=== PATIENT | female | born 1940 | race Caucasian/White ===

== ENCOUNTER 2019-05-19 15:50 | Outpatient (CLI) | payer MEDICARE, BC, SELFPAY ==
--- NOTE | ~2019-05-19 | US_ITS ---
EXAMINATION: US venous doppler LE RT DATE: 05/19/2019 16:34 INDICATION: Right lower limb pain and swelling. TECHNIQUE: Grayscale ultrasound images without and with compression and Doppler ultrasound images of the right lower extremity veins were obtained. COMPARISON: None. FINDINGS: The visualized portions of right common femoral vein, profunda (deep) femoral vein, femoral vein, pop liteal vein, peroneal veins, posterior tibial veins, and greater saphenous vein outflow are patent. IMPRESSION: 1. No deep venous thrombosis. Reviewed, dictated and finalized at location A. LRY FINISHER
== END 2019-05-19 15:51 | disposition home or self-care (01) ==
LOC: ANHIMG 15:58
PROVIDERS: PCP Internal Medicine; Visit Provider Podiatrist Foot & Ankle Surgery
DX: M79.89 Other specified soft tissue disorders (principal)
CPT/HCPCS: 93971

== ENCOUNTER 2024-01-08 07:04 | Outpatient (CLI) | payer MEDICARE, BC, SELFPAY ==
[2024-01-02 15:54] VITALS: BMI 18.1
--- NOTE | 2024-01-02 15:57 | PC.NURSE ---
Pre Radiology instructions Report to the outpatient [facility] means on date ___01/08/24__ at time ____7:00AM___ for procedure Time: ___9:00AM_ YOU MAY BE MONITORED AT HOSPITAL FOR UP TO 4 HOURS AFTER YOUR PROCEDURE. A visitor will be allowed to accompany the patient into the hospital. You and your visitor will be asked to self-screen and do not enter if you have any COVID symptoms. A mask is OPTIONAL within the hospital. Patients are to have no food or drink 6 hours prior to procedure time Driving will be restricted after the procedure, you must have a person to drive you home. Labs will be drawn in preop area and once reviewed, you will be taken to radiology area for procedure. When the procedure is completed, you will be taken to outpatient where you will be monitored for several hours. You may have one visitor in this area. Other than holding anti-coagulants, patient may take other medication(s) as scheduled. Prior to your appointment date patients are instructed to hold anti-coagulants after discussing with ordering provider to stop. If unable to discontinue anti-coagulants please notify radiologist. ? No aspirin or warfarin (Coumadin) for 7 days prior to the procedure. ? No clopidogrel (Plavix), ticagrelor (Brilinta), prasugrel (Effient) or dabigatran (Pradaxa) for 5 days prior to the procedure. ? No rivaroxaban (Xarelto), apixaban (Eliquis), dipyridamole (Aggrenox or Persantine) or cilostazol (Pletal) for 2 days prior to the procedure. Medications to discontinue per physician: ____NONE____ Date to take last dose: Please leave all valuables, including medications, at home the day of procedure. The hospital will not accept responsibility for valuables. Wear comfortable, loose fitting clothing.? Follow any additional instructions given to you from ordering provider. Telephone instructions given to ____PATIENT and asked if any additional questions and then verbalized understanding. Patient advised to call scheduling provider office or registration scheduling [phone] if any additional questions.
--- NOTE | ~2024-01-08 | XR_ITS ---
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 Informed consent was obtained from the patient. Risks and benefits including bleeding, infection and nerve root injury were discussed with the patient. The patient agreed to proceed. Time out proc edure was performed. [employer] radiograph was obtained. An entry site was chosen at the L3-L4 level. A right paracentral approach was used. Standard sterile prep was done with Betadine. Entry site was infiltrated with 3 cc 1% lidocaine. A 3.5 22G spinal needle was then inserted into the spinal canal with intrathecal position confirmed with spontaneous reflux of clear CSF. 10 mL Omnipaque 300 were then injected into the thecal sac with intermittent fluoroscopy confirming intrathecal administration . Frontal, lateral and oblique fluoroscopic images of the lumbar spine were then acquired. 2. The head of the bed was lowered and the contrast bolus was followed with intermittent fluoroscopy was advanced to the cervical spine. Additional frontal and left anterior oblique fluoroscopic images were obtained. The patient was then transferred to CT scan for spiral CT of the cervical and lumbar s pine. . Following this patient was transferred to postoperative recovery area for 2 hours of observ ation. There are no immediate complications. 3. Computed tomography (CT) myelogram of the cervical spine was performed with intrathecal but withou t intravenous contrast. Automated exposure control and iterative reconstruction technique were employ ed. The dose-length product was 145.50 mGy-cm. 4. CT myelogram of the lumbar spine was performed with intrathecal but without intravenous contrast. Automated exposure control and iterative reconstruction technique were employed. The dose-length prod uct was 169.93 mGy-cm. COMPARISON: None FINDINGS: Cervical spine: Severe osteoarthritis at the atlantoaxial articulation with prominent remodeling of the anterior markos in of the dens. 22 degree lower cervical levoscoliosis with incompletely visualized compensatory uppe r thoracic dextroscoliosis. 3 mm anterolisthesis C3 on C4 and C4 on C5 and 3 mm retrolisthesis C6 on C7. Vertebral body heights are normal. Severe disc height loss with prominent degenerative endplate c hanges at C4-C5, C5-C6, C6-C7 and C7-T1. Moderate disc height loss at C3-C4. Mild disc height loss at T2-T3 through T4-T5. Atherosclerotic calcifications at the bilateral carotid bulbs. Cervical soft ti ssues are otherwise unremarkable. Mild biapical pleural-parenchymal scarring. 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 The following disc levels are specifically discussed: C2-C3: The disc does not extend beyond the endplate margin. There is mild bilateral uncovertebral jaylin nt osteoarthritis. There is severe bilateral facet joint osteoarthritis. There is mild left and minim al right neural foraminal stenosis. There is no central canal stenosis. C3-C4: Disc is mildly bulging. There is mild to moderate right and severe left uncovertebral joint os teoarthritis. There is moderate to severe right and severe left facet joint osteoarthritis. There is mild right and moderate left neural foraminal stenosis. There is mild central canal stenosis. C4-C5: Small posterior disc osteophyte complex. There is moderate left and severe right uncovertebral joint osteoarthritis. There is moderate to severe bilateral facet joint osteoarthritis. There is mod erate bilateral neural foraminal stenosis. There is mild central canal stenosis. C5-C6: Posterior disc osteophyte complex. There is mild to moderate left and severe right uncovertebr al joint osteoarthritis. There is mild left and and mild to moderate right facet joint osteoa
[2024-01-08 07:56] VITALS: BP 171/71; PULSE 71; TEMP 37.2; O2SAT 99
[2024-01-08 07:59] LABS: Basophils Percent Auto 0.4 % (0.2-1.2); Eosinophils Absolute Auto 0.2 K/mm3 (0-0.3); Eosinophils Percent Auto 3.3 % (0-4.4); Hematocrit 34.8 % (37.0-47.0); Hemoglobin 11.7 g/dL (12.0-15.0); Immature Granulocyte Absolute 0.02 K/mm3 (0.00-0.031); Immature Granulocyte Percent A 0.3 % (0-0.5); Lymphocytes Absolute Auto 0.89 K/mm3 (0.9-3.2); Lymphocytes Percent Auto 12.7 % (18.3-44.2); Mean Corpuscular HGB Conc 33.6 g/dl (32-36); Mean Corpuscular Hemoglobin 32.3 pg (26-34); Mean Corpuscular Volume 96.1 fl (80-100); Monocytes Absolute Auto 0.6 K/mm3 (0.1-0.6); Monocytes Percent Auto 7.8 % (2.6-8.5); Neutrophils Absolute Auto 5.3 K/mm3 (1.3-6.7); Neutrophils Percent Auto 75.5 % (45.5-73.1); Platelet Count Result 164 k/mm3 (150-375); Red Blood Count 3.62 M/mm3 (4.2-5.4); Red Cell Distribution Width 12.7 % (11.5-14.5)
[2024-01-08 08:23] LABS: INR 1.1; Prothrombin Time 14.3 Seconds (11.1-14.7)
[2024-01-08 10:15] VITALS: BP 177/78; PULSE 65; RESP 20; O2SAT 98
[2024-01-08 10:30] VITALS: BP 164/80; PULSE 61; RESP 20
--- NOTE | 2024-01-08 10:32 | SUR.PHASEII ---
1020 - dr. vital called in regards to pt's request to take her home dose of tramadol for pain control. dr. vital stated that pt could take her home dose
[2024-01-08 11:00] VITALS: BP 167/88; PULSE 65; RESP 20
[2024-01-08 11:30] VITALS: BP 160/80; PULSE 63; RESP 65
[2024-01-08 12:00] VITALS: BP 165/84; PULSE 80; RESP 20
== END 2024-01-08 12:17 | disposition home or self-care (01) ==
PROVIDERS: Radiology Diagnostic Radiology; PCP Family Medicine; Referring Provider Neurological Surgery; Visit Provider Radiology Diagnostic Radiology
DX: M47.816 Spondylosis without myelopathy or radiculopathy, lumbar region (principal); S34.109A Unspecified injury to unspecified level of lumbar spinal cord, initial encounter; M41.9 Scoliosis, unspecified
CPT/HCPCS: 36415; 62302; 62304; 62305; 72126; 72132; 85025; 85049; 85610; Q9967

== ENCOUNTER 2024-05-14 01:13 | Day surgery (SDC) | payer MEDICARE, BC, SELFPAY ==
[2024-05-01 11:56] VITALS: BP 159/76; PULSE 67; RESP 16; TEMP 37; O2SAT 100; BMI 19.4
--- NOTE | 2024-05-01 12:21 | PC.NURSE ---
Report to the Outpatient Waiting Room, entrance under the green pavilion located off [facility], at time __6:00AM on date ___05/14/24____. Planned Procedure Time: ___7:30AM .? Time changes happen often and if your time is changed the preop area will call you the afternoon before. - You and your visitor will be asked to self-screen and do not enter if you have any COVID symptoms. Please call surgeon if you need to reschedule. - A mask is optional within the hospital at this time. Patients may have clear liquids (water, carbonated beverages, clear teas, apple juice) until 3 hours prior to surgery with a maximum of 20 ounces. - No food from midnight until time of surgery and no smoking. This includes no chewing gum, candy or mints. Take only the following medications with a SIP of water on the morning of surgery: AMIODARONE, LEVOTHYROXINE. TRAMADOL AND ALBUTEROL NEEDED DO NOT STOP ANY OF YOUR OTHER PRESCRIPTION MEDICATIONS PRIOR TO SURGERY EXCEPT THE FOLLOWING Medications to discontinue per physician HOLD ALL NSAIDS(IBUPROFEN, NAPROXEN & VLAD'S PILLS) AND ALL SUPPLEMENTS/VITAMINS 7 DAYS PRE-OP PER DR MCMAHON Date to take last dose 05/06/24 Please no make-up, nail luxembourgish, hairspray, perfume, deodorant, or body powder the day of surgery.? No jewelry (including any body piercings) or valuables the day of surgery, leave them at home.? Please take a shower or bath the night before, or the morning of, surgery with an antibacterial soap.? Wear comfortable, loose fitting clothing.? - Jewelry must be removed prior to entering the operating room.? Rings and piercings that are not removed may be cut off. - The hospital will not accept responsibility for valuables.? - Please leave all valuables, including medications, at home the day of surgery. If you are going home after surgery, a licensed local company intermodal truck driver must drive you home.? - NO public transportation without another adult if you receive anesthesia. - We recommend that an adult stay with you for 24 hours following discharge. - We also recommend that you do not drive, make important decision, drink alcoholic beverages, or take any drugs that were not prescribed by your health care provider for at least 24 hours after your discharge time. Follow any additional instructions given to you from your surgeon. Telephone instructions given to ____PATIENT and asked if any additional questions and then verbalized understanding. Patient advised to call surgeon office or pre surgery nurse liaison [phone] if any additional questions.
[2024-05-14] VITALS (19 sets, daily range): BP systolic 135–165; BP diastolic 57–74; PULSE 60–72; RESP 11–18; TEMP 36.4–36.7; O2SAT 96–100; BMI 18.4
--- NOTE | ~2024-05-14 | XR_ITS ---
INTRAOPERATIVE FLUOROSCOPY: CLINICAL HISTORY: 84 years old Female; RIGHT L5/S1 MIKEL LAMINECTOMY PROCEDURE COMMENTS: Limited intraoperative fluoroscopy of the lumbar spine was performed. CUMULATIVE DOSE: 0.9 mGy FLUOROSCOPY TIME: 3.6 seconds FINDINGS/IMPRESSION: Please refer to operative note for further details. Reviewed, dictated and finalized at location A. [employer]
--- OUTSIDE RECORDS SUMMARY | 2024-05-14 01:17 | XMS_ITS | Encounter Summary ---
Author Organization [facility] Address [address] [place] [address] Care Team Providers Care Vamp Creaser Name Role Phone Jerson Pino MD Unavailable [phone] Morro Kiser MD Primary Care Provider [phone] Seble Charles NP Primary Care Provider [phone] Morro Kiser MD Primary Care Provider [phone] Mary Grace Martinez RN Unavailable [phone] Humberto Harman MD Unavailable [phone] Encounter Details Date Type Department Care Team (Late st Contact Info) Description 02/21/2023 [employer] Message Enc [facility] [employer] [address] [place] [address] bCODE, [facility] Provider Patient Amendment request Social History Tobacco Use Types Packs/Day Years Used Date Smoking Tobacco: Never Smokeless Tobacco: Never Comments:na Alcohol Use Standard Drinks/Week Comments No 0 (1 standard drink = 0.6 oz pur e alcohol) OASIS D0700: Social Isolation Answer Da te Recorded Frequency of experiencing loneliness or isolatio n Never 11/09/2022 OASIS A1250: Transportation Answer Date Recorded Lack of Transportation (Medical) No 11/09/2022 Lack of Transportation (Non-Medical) No 11/09/2022 Patient Unable or Declines to Respond No 11/09/2022 OASIS B1300: Health Literacy Answer Yang e Recorded Frequency of needing help to read materials from doctor or pharmacy Never 11/09/2022 Humiliation, Afraid, Rape, and Kick questionnair e Answer Date Recorded Within the last year, have y ou been afraid of your partner or ex-partner? No 10/29/2022 Within the last year, have y ou been humiliated or emotionally abused in other ways by your partner or ex-partner? No Within the last year, have y ou been kicked, hit, slapped, or otherwise physically hurt by your partner or ex-partner? No 10/29/2022 Within the last year, have y ou been raped or forced to have any kind of sexual activity by your partner or ex-partner? No 10/29/2022 AUDIT-C Answer Date Recorded Q1: How often do you have a drink containing alcohol? Never 10/29/2022 Q2: How many drinks containi ng alcohol do you have on a typical day when you are drinking? Patient does not drink Q3: How often do you have si x or more drinks on one occasion? Never 10/29/2022 Overall Financial Resource Strain (CARDIA) Answe r Date Recorded How hard is it for you to pa y for the very basics like food, housing, medical care, and heating? Not very hard 10/29/2022 PHQ-2 Answer Date Recorded Patient Health Questionnaire-2 Score 0 08/31/2022 [facility] - Occupational Stress Questionnaire Answer Date Recorded Do you feel stress - tense, restless, nervous, or anxious, or unable to sleep at night because your mind is troubled all the time - these days? Only a little 10/29/2022 Hunger Vital Sign Answer Date Recorded Within the past 12 months, y ou worried that your food would run out before you got the money to buy more. Never true 10/30/19 Within the past 12 months, t he food you bought just didn't last and you didn't have money to get more. Never true 10/29/2022 PRAPARE - Transportation Answer Date Re corded In the past 12 months, has l ack of transportation kept you from medical appointments or from getting medications? No 10/08 In the past 12 months, has l ack of transportation kept you from meetings, work, or from getting things needed for daily living? No 10/29/2022 Housing Stability Vital Sign Answer Yang e Recorded In the last 12 months, was t here a time when you were not able to pay the mortgage or rent on time? No 10/29/2022 In the last 12 months, how many places have you lived? 1 10/29/2022 In the last 12 months, was t here a time when you did not have a steady place to sleep or slept in a fci (including now)? No 10/29/2022 Housing Stability Vital Sign Answer Yang e Recorded In the last 12 months, was t here a time when you were not able to pay the mortgage or rent on time? No 10/29/2022 Number of Times Moved in the Last Year Not on fi le 10/29/2022 Homeless in the Last Year Not on file 2022 Education Answer Date Recorded What is the highest level of school you have completed or the highest degree you have received? 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 Answer Date of Assessment Author Status No 10/29/2022 9:57 PM CDT Melquiades Leon RN Active * Do you have serious difficulty walking or climbing stairs? Answer Date of Assessment Author Status Yes 10/29/2022 9:57 PM Melquiades Delacruz RN Active * Do you have difficulty dressing or bathing? Answer Date of Assessment Author Status Yes 10/29/2022 9:57 PM Melquiades Delacruz RN Active * Because of a physical, mental, or emotional condition, do you have difficulty doing errands alone such as visiting a doctor's office or shopping? Answer Date of Assessment Author Status No 10/29/2022 9:57 PM CDT Melquiades Leon, CAMILO Active documented as of this encounter Mental Status * Because of a physical, mental, or emotional condition, do you have serious difficulty concentrating, remembering, or making decisions? Answer Entry Date Author Status No 10/29/2022 9:57 PM CDT Melquiades Leon RN Active documented in this encounter Plan of Treatment Upcoming Encounters Date Type Department Care Team (Late st Contact Info) Description 05/29/2024 10:30 AM BOX OFFICE ATTENDANT Office Visit [facility] [address] [place] [id number] Kelsea Jacobo FNP [address] [place] [address] [address] [place], [place] [address] 06/06/2024 11:15 AM BOX OFFICE ATTENDANT [facility] [address] [place] [address] Emilia Proctor PA-C [facility] [address] [place], [place] [address] 07/14/2024 2:40 PM CDT Allied [facility], [facility] [address] [place], [place] [address] Humberto Harman MD [facility]. [facility] [address] [place], [place] [id number] documented as of this encounter Goals Goal Patient Goal Type Associated Problems Recent Progress Patient-Stated? Author Health - patient able to perform ADLs independently General No Concepcion Lipscomb, SURVEILLANCE OPERATOR Family - family caregiver with be involved in care transitions and discharge planning Lifestyle No Ignacio Hernandez, RN documented as of this encounter Visit Diagnoses Not on filedocumented in this encounter Additional Health Concerns Assessment Noted Time PHQ-9 Depression Total Score: 4 04/26/19 23 9:20 AM BOX OFFICE ATTENDANT documented as of this encounter Care Teams Vamp Creaser Relationship Specialty [place] [address] [place] [address] PCP - General FAMILY PRACTICE 05/25/22 03/07/23 Seble Charles NP [address] [place] [address] PCP - General NURSE PRACTITIONER 03/08/23 03/19/23 [place] [address] [place] [address] PCP - General FAMILY PRACTICE 03/20/23 Jerson Pino MD [facility]. [address] [place], [place] [address] [place] Morale Officer CARDIOVASCULAR DISEASE 06/29/17 Mary Grace Martinez, RN [address] [place] [address] Partition Assembly Machine Operator (Ambulatory) REGISTERED NURSE 07/17/23 08/05/23 Humberto Harman MD [facility]. [address] [place], [place] [address] Consulting Physician CARDIOVASCULAR DISEASE 04/17/24 documented as of this encounter
--- OUTSIDE RECORDS SUMMARY | 2024-05-14 01:17 | XMS_ITS | Clinical Summary ---
Author Organization [facility] Address [address] [place] [address] Care Team Providers Care Life Insurance Actuary Name Role Phone AraceliSeble Sue EUGENE-OTOLARYNGOLOGY TEACHER Primary Care Provider [phone]- [phone] Source Comments [facility],non-owned Affiliates and Associated Physician Practices is amultiple site organization consisting of ambulatory clinics and hospital sitesin [place], [place], [place] and [place]. This disclosure is being madepursuant to the Care Everywhere program and may not contain all information available regarding this patient. Last updated 17.[facility] Allergies Active Allergy Reactions Criticality Noted Date Comments Adhesive Sensitivity Rash Medium 03/14/2023 Baclofen Nausea and/or Vomiting 08/12/2013 Lamotrigine Rash Medium 11/17/2013 Atorvastatin Myalgias 03/14/2023 Hydrocodone-Acetaminoph en Other 03/14/2023 Syncope Cilostazol Palpitations 03/14/2023 Propranolol Other 03/14/2023 Mouth blisters Tizanidine Other 03/14/2023 Hallucinations Medications * Be aware that medications may not be up to date on this document. Alwaysverify current medications with the patient. Medication Sig Dispensed Refills Start Date End Date Status multivitamin daily (THERAGRAN) tablet Take 1 Tab by mouth daily with food. Active Docosahexaenoic Acid (DHA COMPLETE PO) Take 1 Tab by mouth once daily. Active Cholecalciferol (VITAMIN D-3) 1000 UNITS CAPS Take 2 Caps by mouth once daily. Active vitamin C (ASCORBIC ACID) 1000 MG TABS tablet Take 1,000 mg by mouth once daily. Active cyanocobalamin (VITAMIN B-12) 1000 MCG tablet Take 1,000 mcg by mouth once daily. Active Ferrous Sulfate (IRON) 325 (65 FE) MG TABS Take 1 Tab by mouth as directed. 2 times a week Active azelastine (ASTELIN) 0.1 % nasal spray [place] 1 [place] into each nostril 2 times daily 1 Inhaler 1 04/16/2015 Active acyclovir (Zovirax) 5 % cream Apply 5 times daily for 4 days for cold sores. 11/24/2022 Active amiodarone (Cordarone) 200 MG tablet Take 1 (one) tablet by mouth 2 times daily 01/24/2023 Active amLODIPine (Norvasc) 5 MG tablet Take 1 (one) tablet by mouth once daily 02/05/2023 Active diphenhydrAMINE (Benadryl) 25 MG capsule Take 1 (one) capsule by mouth 2 times daily Active Magnesium Oxide 250 MG Take 250 mg by mouth once daily Active mirabegron ER 24hr (Myrbetriq) 25 MG tablet Take 1 (one) tablet by mouth once daily 11/24/2022 Active [place]-3 Fatty Acids (fish oil) 1000 MG capsule Take 500 mg by mouth once daily Active rivaroxaban (Xarelto) 15 MG tablet Take 1 (one) tablet by mouth once daily for 90 days 30 tablet 2 03/13/2023 Active metoprolol tartrate IR (Lopressor) 25 MG tablet Take 1 (one) tablet by mouth 2 times daily for 90 days 60 tablet 2 03/13/2023 Active Active Problems Problem Noted Date Diagnosed Date SSS (sick sinus syndrome) 03/04/2023 Mitral valve prolapse 03/04/2023 Atrial fibrillation 03/04/2023 Asthma 03/04/2023 Hemopneumothorax on right 03/01/2023 Left hip pain 06/12/2014 Hypothyroidism 07/30/2012 Sacroiliac dysfunction 07/30/2012 Immunizations Name Administration Dates Next Due INFLUENZA VACCINE 12/24/2017, 7,12/24/2015,2014,01/25/2012 INFLUENZA VACCINE, HIGH-DOSE , QUADR. (FLUZONE HIGH-DOSE QUADRIVALENT; 65Y+), 0.7 ML (HD-IIV4) 02/26/2023,02/27/2021 INFLUENZA VACCINE, HIGH-DOSE , TRIV. (FLUZONE HIGH-DOSE TRIVALENT; 65Y+) (HD-IIV3) 12/24/2019,01/06/2019,12/24/2017,2016,12/24/2015 INFLUENZA VACCINE, QUADR. (F LUZONE PF QUADRIVALENT; 6-35MO), 0.25 ML (IIV4) 01/29/2015 PNEUMOCOCCAL PCV7 CONJ, PEDS 03/01/2015,01/30/20 15 PNEUMOCOCCAL PPV VACCINE 12/24/2017,06/29/2009 Pneumococcal Pcv13 Conj 01/07/2015 TDAP, HISTORIC VACCINE 06/29/2012 ZOSTER VACCINE, LIVE 06/29/2012,04/05/2012 Zoster Hzv Vacc Recombinant Inj Im 11/10/2020 Family History Medical History Relation Name Comments Asthma Maternal Grandfather Diabetes Maternal Grandfather Heart Disease Maternal Grandfather Diabetes Maternal Grandmother Alzheimer's Disease Mother Diabetes Mother Cancer - Breast Neg Hx Cancer - Ovarian Neg Hx Relation Name Status Comments Maternal Grandfather Maternal Grandmother Mother Social History Tobacco Use Types Packs/Day Years Used Date Smoking Tobacco: Never Smokeless Tobacco: Never Tobacco Cessation:Counseling Given: Not Answered Alcohol Use Standard Drinks/Week Comments No 0 (1 standard drink = 0.6 oz pur e alcohol) AUDIT-C Answer Date Recorded Q1: How often do you have a drink containing alcohol? Never 03/01/2023 Q2: How many drinks containi ng alcohol do you have on a typical day when you are drinking? Patient does not drink Q3: How often do you have si x or more drinks on one occasion? Never 03/01/2023 Overall Financial Resource Strain (CARDIA) Answe r Date Recorded How hard is it for you to pa y for the very basics like food, housing, medical care, and heating? Not hard at all 03/01/2023 [facility] [place] [facility] - Occupational Stress Questionnaire Answer Date Recorded Do you feel stress - tense, restless, nervous, or anxious, or unable to sleep at night because your mind is troubled all the time - these days? Not at all 03/01/2023 Hunger Vital Sign Answer Date Recorded Within the past 12 months, y ou worried that your food would run out before you got the money to buy more. Never true 03/01/20 23 Within the past 12 months, t he food you bought just didn't last and you didn't have money to get more. Never true 03/01/2023 PRAPARE - Transportation Answer Date Re corded In the past 12 months, has l ack of transportation kept you from medical appointments or from getting medications? No 02/08 In the past 12 months, has l ack of transportation kept you from meetings, work, or from getting things needed for daily living? No 03/01/2023 Housing Stability Vital Sign Answer Yang e Recorded In the last 12 months, was t here a time when you were not able to pay the mortgage or rent on time? No 03/01/2023 In the last 12 months, how many places have you lived? 1 03/01/2023 In the last 12 months, was t here a time when you did not have a steady place to sleep or slept in a penitentiary (including now)? No 03/01/2023 Sex and Gender Information Value Date Recorded Sex Assigned at Not on file Gender Identity Not on file Sexual Orientation Not on file Last Filed Vital Signs Vital Sign Reading Time Taken Comments Blood Pressure 108/49 03/15/2023 10:51 AM NAPHTHALENE OPERATOR Pulse 57 03/15/2023 10:51 AM NAPHTHALENE OPERATOR Temperature 36.4 ??C (97.5 ??F) 03/15/2023 10:[address] Respiratory Rate 20 03/15/2023 10:51 AM NAPHTHALENE OPERATOR Oxygen Saturation 91% 03/15/2023 10:51 AM NAPHTHALENE OPERATOR Inhaled Oxygen Concentration - - Weight 53 kg (116 lb 12.8 oz) 03/15/2023 6:13 AM NAPHTHALENE OPERATOR Height 157.5 cm (5' 2 ) 03/13/2023 9:00 AM NAPHTHALENE OPERATOR Body Mass Index 21.36 03/13/2023 9:00 AM NAPHTHALENE OPERATOR Plan of Treatment Health Maintenance Due Date Last Done Comments MEDICARE AWV ? 12 MONTHS 08/12/2014 08/12/2013 Respiratory Syncytial Virus (RSV) Vaccine Pt: or over 60 yrs (1 - 1-dose 75+ series) 2016 ZOSTER VACCINE (3 of 3) 01/05/2021 11/11/19 21, 06/29/2012, 04/05/2012 DTAP/TDAP/TD VACCINES (2 - Td or Tdap) 06/29/2022 06/29/2012 COVID-19 VACCINE ( season) 2023 11/02/2021, 02/28/2021, 07/13/2020, Additional history exists INFLUENZA VACCINE (#1) 2023 3, 02/27/2021, 12/24/2019, Additional history exists DEPRESSION SCREENING 04/09/2024 BONE DENSITY TESTING Completed 09/10/2013, 09/05/2012 (Previously completed) PNEUMOCOCCAL VACCINE 50+ Completed 018, 01/07/2015, 06/29/2009 HEPATITIS B VACCINE Aged Out No longe r eligible based on patient's age to complete this topic HIB VACCINE Aged Out No longer eligi ble based on patient's age to complete this topic HPV VACCINE Aged Out No longer eligi ble based on patient's age to complete this topic MENINGOCOCCAL (Group B) VACCINE Aged Out No longer eligible based on patient's age to complete this topic MENINGOCOCCAL VACCINE Aged Out No amy dalia eligible based on patient's age to complete this topic Medical Devices Implanted Type Area Skewer Up Device Identifier Shelf Expiration Date Model / Serial / Lot Env Defib 3.3x2.9in Aigisrx Icd Tyrx Lg - [id number] Implanted:Qty: 1 on 03/12/2023 by Monty Myers MD at [facility] [employer] [id number] 12/09/2023 [id number] / [id number] / [id number] Procedures Procedure Name Priority Date/Time Associated Diagnosis Comments DEXA BONE DENSITY 2 SITES Routine 09/10/2013 11:32 AM CDT Osteoporosis from Last 3 Months or Most Recently Relevant to Health Maintenance Results * DEXA BONE DENSITY 2 SITES (09/10/2013 11:32 AM CDT) Anatomical Region Laterality Modality Radiographic Fabi ging 09/10/2013 11:5 4 AM CDT Impressions 09/10/2013 12:55 PM CDT Lowest T score in hip joints. Based on WHO criteria, mild osteopenia. Some risk for fracture. Followup in 2 years on same machine if possible. Narrative 09/10/2013 12:55 PM CDT BONE MINERAL DENSITY 09/10/2013 CLINICAL HISTORY: Osteoporosis. HIP JOINT: BMD: ??0.828 g/cm2 T score: -1.4 Z score: ??0.4 LUMBAR SPINE: BMD: ??1.079 ??g/cm2 T score: -1 Z score: ?? 1.1 Procedure Note Jed Rush MD - 09/10/2013 BONE MINERAL DENSITY 09/10/2013 CLINICAL HISTORY: Osteoporosis. HIP JOINT: BMD: 0.828 g/cm2 T score: -1.4 Z score: 0.4 LUMBAR SPINE: BMD: 1.079 g/cm2 T score: -1 Z score: 1.1 IMPRESSION Lowest T score in hip joints. Based on WHO criteria, mild osteopenia. Some risk for fracture. Followup in 2 years on same machine if possible. Seble Charles APRN-OTOLARYNGOLOGY TEACHER DEXA ORDERABLES from Last 3 Months or Most Recently Relevant to Health Maintenance Advance Directives * Full Code (Latest Code Status on File) Date Activated Date Inactivated Comments 03/01/2023 3:35 PM 03/15/2023 3:28 PM Care Teams Life Insurance Actuary Relationship Specialty Start Date End Date Seble Charles APRN-OTOLARYNGOLOGY TEACHER [address] [place] [address] PCP - General Family Medicine 07/30/12
--- OUTSIDE RECORDS SUMMARY | 2024-05-14 01:17 | XMS_ITS | Encounter Summary ---
Author Organization [facility] Address [address] [place] [address] Care Team Providers Care Flight Radio Officer Name Role Phone Rosibel Bhatt MD Primary Care Provider + [phone] Jerson Pino MD Unavailable [phone] Morro Kiser MD Primary Care Provider [phone] Rosibel Bhatt MD Primary Care Provider + [phone] Seble Charles NP Primary Care Provider [phone] Morro Kiser MD Primary Care Provider [phone] Mary Grace Martinez RN Unavailable [phone] Humberto Harman MD Unavailable [phone] Encounter Details Date Type Department Care Team (Late st Contact Info) Description 04/13/2020 Portal [employer] Message Enc [facility] Family & Internal Medicine [facility] [address] [place] [address] [facility] Results Social History Tobacco Use Types Packs/Day Years Used Date Smoking Tobacco: Never Smokeless Tobacco: Never Alcohol Use Standard Drinks/Week Comments No 0 (1 standard drink = 0.6 oz pur e alcohol) AUDIT-C Answer Date Recorded Q1: How often do you have a drink containing alc ohol? Never 04/12/2020 Average Number of Drinks Not on file 021 Frequency of Binge Drinking Not on file 07/2020 PHQ-2 Answer Date Recorded PHQ-2 Score 0 07/22/2018 Comments No Sex and Gender Information Value Date Recorded Sex Assigned at Female 10/09/2018 7:56 AM CDT Legal Sex Female 6:54 PM CDT Gender Identity Female 10/09/2018 7:56 AM CDT Sexual Orientation Straight 10/09/2018 7: 56 AM CDT Occupation Industry Job Start Date Job End Date Not on file Not on file Not on file Not on file COVID-19 Exposure Response Date Recorded In the last month, have you been in contact with someone who was confirmed or suspected to have Coronavirus / COVID-19? No / Unsure 04/12/2020 10:20 AM RN CARDIOVASCULAR documented as of this encounter Plan of Treatment Upcoming Encounters Date Type Department Care Team (Late st Contact Info) Description 05/29/2024 10:30 AM RN CARDIOVASCULAR [facility] [address] [place] [phone] Kelsea Jacobo FNP [address] [place], [place] [address] [place], [place] [address] 06/06/2024 11:15 AM RN CARDIOVASCULAR Office Visit [facility], [address] [address] Emilia Proctor PA-C [address] [place] [place], [place] [address] 07/14/2024 2:40 PM CDT Allied Health/Nurse Visit [facility], [address] [address]78[address] Humberto Harman MD [facility]. [address] [id number] documented as of this encounter Visit Diagnoses Not on filedocumented in this encounter Care Teams Flight Radio Officer Relationship Specialty Start Date End Date Rosibel Bhatt MD PCP - General INTERNAL MEDICINE 06/07/17 05/08/22 [place] [address] [place] [address] PCP - General FAMILY PRACTICE 05/25/22 03/07/23 [place] [address] [place] [address] PCP - General INTERNAL MEDICINE 05/18/22 05/24/22 Seble Charles NP [address] [place] [address] PCP - General NURSE PRACTITIONER 03/08/23 03/19/23 [place] [address] [place] [address] PCP - General FAMILY PRACTICE 03/20/23 Jerson Pino MD [address] [address] [place]et[place] Clinical Partner CARDIOVASCULAR DISEASE 06/29/17 Mary Grace Martinez, RN [address] [place] [address] Line Clearance Foreman (Ambulatory) REGISTERED NURSE 07/17/23 08/05/23 Humberto Harman MD [facility] [address] [place] [address] Consulting Physician CARDIOVASCULAR DISEASE 04/17/24 documented as of this encounter
--- OUTSIDE RECORDS SUMMARY | 2024-05-14 01:17 | XMS_ITS | Encounter Summary ---
Author Organization [facility] Address [address] [place] [address] Care Team Providers Care Calciner Operator Helper Name Role Phone Rosibel Bhatt MD Primary Care Provider + [phone] Jerson Pino MD Unavailable [phone] Morro Kiser MD Primary Care Provider [phone] Rosibel Bhatt MD Primary Care Provider + [phone] Seble Charles NP Primary Care Provider [phone] Morro Kiser MD Primary Care Provider [phone] Mary Grace Martinez RN Unavailable [phone] Humberto Harman MD Unavailable [phone] Reason for Referral * Surgical (Routine) - Closed Specialty Diagnoses / Procedures Referred By Bright munguia Referred To Contact Procedures Case request operating room: BLOCK SACROILIAC JOINT Mimi Newton APNP Phone: tel: fax: Referral ID Status Reason Start Date Expiration Date Visits Re quested Visits Authorized [id number] Closed 07/08/2020 08/07/2021 1 1 Encounter Details Date Type Department Care Team (Late st Contact Info) Description 07/08/2020 Prep for Procedure [facility] [address] [id number] Mimi Newton, APNP [address] [place] [phone] Social History Tobacco Use Types Packs/Day Years [...] 07/2020 PHQ-2 Answer Date Recorded PHQ-2 Score - If the patient scores above 3, please move on to questions 3-9 0 05/12/2020 Education Answer Date Recorded What is the [...] have Coronavirus / COVID-19? No / Unsure 07/08/2020 10:02 AM CDT documented as of this encounter Functional Status * RETIRED Are you deaf or do you have serious difficulty hearing Answer Date of Assessment Author Status No 05/04/2020 4:24 PM AWNING FINISHER Activ e * RETIRED Are you blind or do you have serious difficulty seeing, even when wearing glasses? Answer Date of Assessment Author Status No 05/04/2020 4:24 PM AWNING FINISHER Activ e * Do you have serious difficulty walking or climbing stairs? Answer Date of Assessment Author Status No 05/04/2020 4:24 PM AWNING FINISHER Delfina Gandara RN Active * Do you have difficulty dressing or bathing? Answer Date of Assessment Author Status No 05/04/2020 4:24 PM AWNING FINISHER Delfina Gandara RN Active * Because of a physical, mental, or emotional condition, do you have difficulty doing errands alone such as visiting a doctor's office or shopping? Answer Date of Assessment Author Status No 05/04/2020 4:24 PM Delfina Villalpando RN Active documented as of this encounter Mental Status * Because of a physical, mental, or emotional condition, do you have serious difficulty concentrating, remembering, or making decisions? Answer Entry Date Author Status No 05/04/2020 4:24 PM AWNING FINISHER Delfina Gandara RN Active documented in this encounter Plan of Treatment Upcoming Encounters Date Type Department Care Team (Late st Contact Info) Description 05/29/2024 10:30 AM AWNING FINISHER [facility] [address] [place] [address] Kelsea Jacobo FNP [address] [place] [id number] 06/06/2024 11:15 AM AWNING FINISHER Office Visit [address] [address] Emilia Proctor PA-C [address] [id number] 07/14/2024 2:40 PM CDT [facility] [address] Humberto Harman MD [facility]. [address] [address] Scheduled Orders Name Type Priority Associated Diagnoses Orde r Schedule Case request operating room: BLOCK SACROILIAC JOINT Case Request Routine Once for 1 Occurrences starting 07/08/2020 until 07/08/2020 documented as of this encounter Goals Goal Patient Goal Type Associated Problems Recent Progress Patient-Stated? Author Health - patient able to perform ADLs independently General No Concepcion Lipscomb, WIRE STOCKKEEPER documented as of this encounter Visit Diagnoses Not on filedocumented in this encounter Care Teams Calciner Operator Helper Relationship Specialty Start Date End Date Rosibel Bhatt MD PCP - General INTERNAL MEDICINE 06/07/17 05/08/22 [place] [address] [place] [address] PCP - General FAMILY PRACTICE 05/25/22 03/07/23 [place] [address] [place] [address] PCP - General INTERNAL MEDICINE 05/18/22 05/24/22 Seble Charles NP [address] [place], [place] [address] PCP - General NURSE PRACTITIONER 03/08/23 03/19/23 [place] [address] [place] [address] PCP - General FAMILY PRACTICE 03/20/23 Jerson Pino MD [facility]. [address] [address] [place] Land Development Project Manager CARDIOVASCULAR DISEASE 06/29/17 Mary Grace Martinez, RN [address] [place] [address] Briar Cutter (Ambulatory) REGISTERED NURSE 07/17/23 08/05/23 Humberto Harman MD [facility]. [address] [address] Consulting Physician CARDIOVASCULAR DISEASE 04/17/24 documented as of this encounter
--- OUTSIDE RECORDS SUMMARY | 2024-05-14 01:17 | XMS_ITS | Clinical Summary ---
Author Organization [facility] Address [address] [place] [address] Care Team Providers Care Railroad Auditor Name Role Phone Jerson Pino MD Unavailable [phone] Morro Kiser MD Primary Care Provider [phone] Humberto Harman MD Unavailable [phone] Allergies Active Allergy Reactions Criticality Noted Date Comments Tape Rash Low 07/24/2022 Pt has an allergic reaction Baclofen Nausea and Vomiting Medium 07/11/2017 Lamotrigine Rash Medium 11/17/2013 Atorvastatin Myalgias Medium 09/25/2018 Hydrocodone-Acetaminop hen Syncope 10/29/2022 Cilostazol Palpitations,Headache Medium 05/05/2020 Lightheaded, sweats, hand shakes Propranolol Other (see comment) 07/18/2021 Mouth blisters, cant eat per patient Tizanidine Hallucinations High 11/10/2020 Medications Multiple Vitamins-Minera ls (SENIOR MULTIVITAMIN PLUS OR)Indications: Nutritional Support Take by mouth daily. Indications: Nutritional Support Active fish oil 1000 MG Cap capsuleIndicati ons:Hyperlipide andrew Take 500 mg by mouth daily. Indications: High Amount of Fats in the Blood Active Vitamin D-Vitamin K (VITAMIN K2-VITAMIN D3 OR)Indications: Nutritional Support Take 1 tablet by mouth daily. Indications: Nutritional Support Active vitamin B-12 (CYANOCOBALAMIN ) (CYANOCOBALAMIN ) 1000 mcg tabletIndicatio ns:Vitamin B12 Deficiency Take 1 tablet (1,000 mcg total) by mouth daily. Indications: Inadequate Vitamin B12 12/13/20 23 Active ibuprofen (MOTRIN) 200 MG tablet Take 1 tablet (200 mg total) by mouth every 6 (six) hours as needed for Pain. Active magnesium oxide (MAG-OX) 250 MG tablet Take 1 tablet (250 mg total) by mouth daily. Active mirabegron ER (MYRBETRIQ) 25 MG 24 hr tabletIndicatio ns:Urinary incontinence, unspecified type Take 1 tablet (25 mg total) by mouth daily. 90 tablet 1 11/22/19 24 Active amiodarone (PACERONE) 200 MG tablet Take 1 tablet by mouth once daily 90 tablet 1 12/18/19 24 Active ORTHOTICS, DME,Indications :Pain in both feet Apply 1 Device topically daily. 1 Device 04/07/20 24 Active levothyroxine (SYNTHROID) 50 MCG tabletIndicatio ns:Hypothyroidi sm, unspecified type TAKE 1 TABLET BY MOUTH ONCE DAILY IN THE MORNING 90 tablet 1 04/16/19 25 Active zolpidem (AMBIEN) 10 MG tabletIndicatio ns:Adjustment insomnia TAKE 1/2 TO 1 (ONE-HALF TO ONE) TABLET BY MOUTH AT BEDTIME NEEDED FOR SLEEP 30 tablet 04/19/19 25 Active potassium chloride CR (K-TAB) 20 MEQ tablet Take 1 tablet by mouth once daily 90 tablet 04/24/19 25 Active primidone (MYSOLINE) 50 MG tabletIndicatio ns:Tremor TAKE 1/2 (ONE-HALF) TABLET BY MOUTH AT BEDTIME 45 tablet 05/01/19 25 Active cephALEXin (KEFLEX) 500 MG capsule Take 1 capsule (500 mg total) by mouth 3 (three) times daily. Active traMADol (ULTRAM) 50 MG tabletIndicatio ns:Sacroiliac dysfunction TAKE 1 TABLET BY MOUTH EVERY 6 HOURS NEEDED FOR PAIN 28 tablet 05/12/19 25 Active potassium chloride CR (K-TAB) 20 MEQ tablet Take 1 tablet by mouth once daily 90 tablet 01/29/20 24 025 Discontinued primidone (MYSOLINE) 50 MG tabletIndicatio ns:Tremor TAKE 1/2 (ONE-HALF) TABLET BY MOUTH AT BEDTIME 45 tablet 02/11/20 24 025 Discontinued levothyroxine (SYNTHROID) 50 MCG tabletIndicatio ns:Hypothyroidi sm, unspecified type Take 1 tablet (50 mcg total) by mouth every morning. 30 tablet 1 02/20/20 24 025 Discontinued zolpidem (AMBIEN) 10 MG tabletIndicatio ns:Adjustment insomnia TAKE 1/2 TO 1 (ONE-HALF TO ONE) TABLET BY MOUTH AT BEDTIME NEEDED FOR SLEEP 30 tablet 03/19/20 24 025 Discontinued traMADol (ULTRAM) 50 MG tabletIndicatio ns:Sacroiliac dysfunction TAKE 1 TABLET BY MOUTH EVERY 6 HOURS NEEDED FOR PAIN 28 tablet 04/07/20 24 025 Discontinued cephALEXin (KEFLEX) 500 MG capsuleIndicati ons:Dermatitis Take 1 capsule (500 mg total) by mouth every 6 (six) hours for 10 days. 40 capsule 04/07/20 24 025 cephALEXin (KEFLEX) 500 MG capsuleIndicati ons:Dermatitis Take 1 capsule (500 mg total) by mouth every 6 (six) hours for 10 days. 40 capsule 04/21/19 25 025 traMADol (ULTRAM) 50 MG tabletIndicatio ns:Sacroiliac dysfunction TAKE 1 TABLET BY MOUTH EVERY 6 HOURS NEEDED FOR PAIN 28 tablet 04/21/19 25 025 Discontinued Active Problems Problem Noted Date Diagnosed Date Cervical radiculopathy 11/06/2023 Polyneuropathy 11/06/2023 Assessment & Plan (11/06/2023 9:18 PM CDT): Recommendation at this time, we went over the risk benefits as well as the alternatives. At this point in time, I would recommend continuation with her current exercises. We've got her set up for neurosurgery. Hematoma of left thigh 07/17/2023 Degenerative disc disease, lumbar 07/02/2023 Scoliosis 07/02/2023 Radiculopathy with lower extremity symptoms 06/08 Multiple falls 07/02/2023 Asthma (HHS/HCC) 03/04/2023 Mitral valve prolapse 03/04/2023 SSS (sick sinus syndrome) ([facility]/HCC HHS/HCC) 02/08 Status cardiac pacemaker 03/02/2023 Overview (03/02/2023): DENISSE ESCOBEDO implanted 02/28/23 for SSS. Sinoatrial node dysfunction ([facility]) Overview (03/02/2023): DENISSE ESCOBEDO implanted 02/28/23 for SSS. Assessment & Plan (04/29/2023 8:16 AM DRIER BELT CONVEYOR): She is having significant sinus pauses causing syncope. I recommended urgent pacemaker. I recommended the patient go to the ER immediately, but she declined. I discussed the case with electrophysiology and they are going to schedule her for pacemaker as soon as possible. I explained to the patient with the risk of sinus node dysfunction included possible . Hemopneumothorax on right 03/01/2023 Orthostatic hypotension 10/26/2022 Total knee replacement status, right 10/24/2022 Assessment & Plan (12/27/2022 4:57 PM CDT): Recommendation at this time is to continue with a progressive range of motion. Talk to her air pollution analyst and her primary care on her meds. We'll see her back in 6 weeks. Assessment & Plan (11/07/2022 3:07 PM CDT): Recommendation at this time, outpatient physical therapy at [place]. We'll see her back in four weeks with an x-ray. Peripheral artery vasospasm 10/16/2022 Paroxysmal atrial fibrillation ([facility]) 10/04/2022 NSTEMI (non-ST elevated myoc ardial infarction) ([facility]) 08/21/2022 Hemarthrosis, right knee 06/27/2022 Assessment & Plan (06/27/2022 7:15 PM CDT): No fat globules noted on the blood, therefore probably not a fracture. Probably more related to her blood thinner Status post fall 06/27/2022 Assessment & Plan (01/15/2023 4:59 PM CDT): Recommendation at this time is to continue with a progressive range of motion strengthening. We'll see her back as needed. Troponin level elevated 04/28/2022 Atrial fibrillation with RVR ([facility]/HCC HHS/HCC) 0 04/28/2022 Assessment & Plan (04/29/2023 8:18 AM DRIER BELT CONVEYOR): Patient's falls are likely related to his sinus node dysfunction. This needs to be addressed with a pacemaker and then we can consider left atrial appendage closure. I had a lengthy discussion with the patient explaining the role of atrial fibrillation and thromboembolic risk. We specifically discussed the role of the left atrial appendage as a source for thromboembolic processes. Risks for the left atrial appendage clsoure procedure include but are not limited to: bleeding, vascular damage, cardiac perforation requiring pericardiocentesis and possible surgical sternotomy by cardiothoracic surgery, cerebrovascular accident, myocardial infarction, and even rarely . Per published data: 6.5% procedure/device related adverse events per PROTECT AF, 3.0% procedure/device related event in the CAP registry, and in the PREVAIL trial the complication rate was 2.2%. A recent real world registry data shows approximately the similar results as PREVAIL trial. The patient understands that dual antiplatelet therapy will require post left atrial appendage closure. We can try to make an exception and is off label for single antiplatelet therapy. We will repeat a GUADALUPE 6 weeks post left atrial appendage implantation. Near syncope 05/03/2020 Chronic bilateral low back pain without sciatica 09/16/2018 Assessment & Plan (07/02/2023 10:58 AM CDT): Recommendation at this time: We discussed the risks, benefits, as well as alternatives. We are trying to figure out why she's falling a little bit more so we will set her up for an EMG NCV onto the lower extremities as well as a CAT scan to the lumbar spine. We will follow-up with the results. S[place]HERLAND (dyspnea on exertion) 03/21/2018 Pain in thumb joint with movement of left hand 1 Hypertension 09/25/2017 Nocturia 08/01/2017 Urinary frequency 08/01/2017 Palpitations 04/30/2017 Elevated AST (SGOT) 05/29/2016 Scalp pruritus 02/15/2016 Increased glucose level 09/07/2015 Insomnia 09/07/2015 Vitamin B12 deficiency (non anemic) 09/07/2015 Vitamin D deficiency 09/07/2015 Osteoarthrosis 06/30/2015 Assessment & Plan (07/27/2022 1:01 PM CDT): We discussed the risks, benefits, and alternatives. The only thing proven to slow the progression of osteoarthritis is weight loss. Every pound lost relieves 4 to 6 pounds of stress across the knee. We discussed unloading braces. Formal physical therapy to help with flexibility, mobility, and strength. We discussed TENS units. Nonsteroidal anti-inflammatories as well as Tylenol and pain medication and their side effects. We discussed steroid versus Visco supplement injection. We discussed eventual total knee arthroplasty. The patient is scheduled for a knee replacement on October 24. Assessment & Plan (07/24/2022 9:32 PM CDT): We discussed the risks, benefits, and alternatives. The only thing proven to slow the progression of osteoarthritis is weight loss. Every pound lost relieves 4 to 6 pounds of stress across the knee. We discussed unloading braces. Formal physical therapy to help with flexibility, mobility, and strength. We discussed TENS units. Nonsteroidal anti-inflammatories as well as Tylenol and pain medication and their side effects. We discussed steroid versus Visco supplement injection. We discussed eventual total knee arthroplasty. Shots were injected. Will get patient a referral to Dr. Back. Left hip pain 06/12/2014 Hypothyroidism 07/30/2012 Overview (06/24/2018): Annotation - [id number]: 2013 Sacroiliac dysfunction 07/30/2012 Resolved Problems Problem Noted Date Diagnosed Date Resolved Date Hematoma of left buttock 07/17/202312/2023 Osteoarthritis of right knee 06/26/2022 04/12/2023 Assessment & Plan (06/26/2022 11:12 PM CDT): We discussed the risks, benefits, and alternatives. The only thing proven to slow the progression of osteoarthritis is weight loss. Every pound lost relieves 4 to 6 pounds of stress across the knee. We discussed unloading braces. Formal physical therapy to help with flexibility, mobility, and strength. We discussed TENS units. Nonsteroidal anti-inflammatories as well as Tylenol and pain medication and their side effects. We discussed steroid versus Visco supplement injection. We discussed eventual total knee arthroplasty. The patient received a Kenalog 80mg/2ml and 4ml Marcaine 0.5% injection today. The office will give her a call when the gel shot is approved and schedule an appointment. Gout 10/17/2017 10/04/2022 Psoriasis 08/15/2017 11/21/2021 Wears glasses 04/30/2017 12/19/2019 Cough 07/31/2016 12/26/2018 Right knee pain 06/30/2015 02/05/2023 Encounters Date Type Department Care Team Description 05/02/2024 11:00 AM DRIER BELT CONVEYOR Office Visit [facility] Family & Internal Medicine [address] [address] Loco Jones PA Problem (foot) (Pt c/o blister on bottom of right foot. Pt states she has been treated for symptoms 04/07 with her PCP and the area cleared up and is now back. Pt also states she has spinal surgery the end of the month and she wants to have this cleared up before then) 05/02/2024 Scan [place] [place] [address] Laquita Godfrey RN Information (CRMD for [facility]) 05/02/2024 Travel 05/01/2024 Scan [employer] INFO SRVCS Scanned, [facility] (SCAN) 2024 Telephone [facility] Family & Internal Medicine [address] [address] Morro Kiser MD Medication 04/14/2024 2:55 PM DRIER BELT CONVEYOR Allied Health/Nurse Visit [facility], [address] [address] Jerson Pino MD Gupta, Pavan Kumar, MD Remote Device Check 04/08/2024 Telephone [facility], [address] [address] Humberto Harman MD Surgical Clearance 04/07/2024 9:20 AM DRIER BELT CONVEYOR Office Visit [facility] Family Internal [address] [address] Morro Kiser MD Blisters (Pt states she has a blister on the right foot pt states she had it for awhile but not healing ) 04/07/2024 9:09 AM DRIER BELT CONVEYOR - 04/07/2024 11:59 PM DRIER BELT CONVEYOR Hospital Encounter [facility] [address] [place] [address] [id number] Morro Kiser MD Discharge Disposition: Home or Self Care (Routine Discharge) 04/07/2024 Travel 04/03/2024 Scan [employer] SRVCS Scanned, [facility] 03/21/2024 [facility] [employer] Message Enc [facility] Internal [address] [address] Morro Kiser MD Amiodorone/Pacerone 02/25/2024 Orders Only [facility] Internal [address] [address] Morro Kiser MD 02/21/2024 10:00 AM DRIER BELT CONVEYOR - 02/21/2024 11:59 PM DRIER BELT CONVEYOR Hospital Encounter [facility] [address] [place] [address] Morro Kiser MD Discharge Disposition: Home or Self Care (Routine Discharge) 02/21/2024 Travel 02/20/2024 Telephone [facility] Internal [address] [phone] Morro Kiser MD Medication 02/18/2024 11:00 AM DRIER BELT CONVEYOR Office Visit [facility] Internal [address] [address] Morro Kiser MD Follow Up; Foot Pain (Pt states her feet are very numb causing her to fall ) 02/18/2024 Travel from Last 3 Months Immunizations Name Administration Dates Next Due Afluria 6-35 months (pre-todd led syringe IIV4) 01/29/2015 Fluzone High Dose (IIV, triv alent, 0.5mL) 12/24/2017,01/30/2017,12/24/2015 Fluzone High Dose - >Age 65 (Prefilled Syringe) 02/26/2023,02/27/2021,12/24/2019,2018,12/24/2017,01/30/2017,12/24/2015 Influenza (Generic) 01/07/2015,01/25/2012 Influenza Adult (Generic) 12/24/2017,01/30/2017, 12/24/2015 Influenza Peds (Generic) 01/29/2015 MODERNA COVID-19 (12+) MRNA, LNP-S, PF, 100 MCG/ 0.5 ML DOSE 11/02/2021,07/13/2020,06/15/2020 MODERNA COVID-19 (YARN BLEACHING MACHINE OPERATOR COLLIN IGGY), MRNA, LNP-S, PF, 50 MCG/ 0.25 ML DOSE 02/28/2021 Pneumococcal (Pneumovax 23) 12/24/2017, 0 Pneumococcal (Prevnar 13) 01/07/2015 Pneumococcal (Prevnar 7) 03/01/2015,01/29/2015 Shingrix 11/10/2020 Tdap (Generic) 06/29/2012 Zoster (Zostavax) [address]3235 Unt/0.65Ml 06/29/2012, Family History Medical History Relation Comments atrial dissection [Other] Brother collapsed lungs Brother None Father Diabetes Maternal Grandmother Alzheimers Mother Diabetes Mother her 8 siblings a nd mom diabetes Alzheimer's disease Other Diabetes Other Hypertension Other cardiac disorder Other Relation Status Comments Brother (Age 65) half brother Father (Age 89) Maternal Grandfather (Age 73) Maternal Grandmother (Age 89) Mother (Age 91) Other Paternal Grandfather Paternal Grandmother Social History Tobacco Use Types Packs/Day Years Used Date Smoking Tobacco: Never Passive Smoke Exposure: Never Smokeless Tobacco: Never Tobacco Cessation:Counseling Given: No Comments:na Alcohol Use Standard Drinks/Week Comments No 0 (1 standard drink = 0.6 oz pur e alcohol) OASIS D0700: Social Isolation Answer Da te Recorded Frequency of experiencing loneliness or isolatio n Never 04/11/2023 OASIS A1250: Transportation Answer Date Recorded Lack of Transportation (Medical) No 04/11/2023 Lack of Transportation (Non-Medical) No 04/11/2023 Patient Unable or Declines to Respond No 04/11/2023 OASIS B1300: Health Literacy Answer Yang e Recorded Frequency of needing help to read materials from doctor or pharmacy Never 04/11/2023 [facility] Utilities Answer Date Recorded In the past 12 months has [facility] [employer], gas, oil, or water [employer] threatened to shut off services in your home? No 07/17/2023 Humiliation, Afraid, Rape, and Kick questionnair e Answer Date Recorded Within the last year, have y ou been afraid of your partner or ex-partner? No 07/17/2023 Within the last year, have y ou been humiliated or emotionally abused in other ways by your partner or ex-partner? No Within the last year, have y ou been kicked, hit, slapped, or otherwise physically hurt by your partner or ex-partner? No 07/17/2023 Within the last year, have y ou been raped or forced to have any kind of sexual activity by your partner or ex-partner? No 07/17/2023 AUDIT-C Answer Date Recorded Q1: How often [...] care, and heating? Not hard at all 07/17/2023 PHQ-2 Answer Date Recorded Patient Health Questionnaire-2 Score 0 05/02/2024 [facility] [place] [facility] Occupat ional [facility] - Occupational Stress [...] the money to buy more. Never true 07/17/19 24 Within the past 12 months, t he food you bought just didn't last and you didn't have money to get more. Never true 07/17/2023 PRAPARE - Transportation Answer Date Re corded In the past 12 months, has l ack of transportation kept you from medical appointments or from getting medications? No 12/2023 In the past 12 months, has l ack of transportation kept you from meetings, work, or from getting things needed for daily living? No 07/17/2023 Housing Stability Vital Sign Answer Yang e [...] place to sleep or slept in a [place] (including now)? No 10/29/2022 Housing Stability Vital Sign Answer Yang e Recorded In the last 12 months, was t here a time when you were not able to pay the mortgage or rent on time? No 07/17/2023 In the past 12 months, how m any times have you moved where you were living? 1 07/17/2023 At any time in the past 12 m [facility], were you homeless or living in a [place] facility (including now)? 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 Not on file Not on file Not on file Last Filed Vital Signs Vital Sign Reading Time Taken Comments Blood Pressure 141/100 05/02/2024 11:04 AM DRIER BELT CONVEYOR Pulse 67 05/02/2024 10:56 AM DRIER BELT CONVEYOR Temperature 36.7 ??C (98.1 ??F) 05/02/2024 10:[address] Respiratory Rate 16 05/02/2024 10:56 AM DRIER BELT CONVEYOR Oxygen Saturation 97% 05/02/2024 10:56 AM DRIER BELT CONVEYOR Inhaled Oxygen Concentration - - Weight 48.1 kg (106 lb) 05/02/2024 10:56 AM DRIER BELT CONVEYOR Height 157.5 cm (5' 2 ) 05/02/2024 10:56 AM DRIER BELT CONVEYOR Body Mass Index 19.39 05/02/2024 10:56 AM DRIER BELT CONVEYOR Plan of Treatment Upcoming Encounters Date Type Department Care Team (Late st Contact Info) Description 05/29/2024 10:30 AM DRIER BELT CONVEYOR [facility] [address] [place] [address] Kelsea Jacobo FNP [address] [place], [place] [address] [place], [place] [id number] 06/06/2024 11:15 AM DRIER BELT CONVEYOR Office Visit [facility], [address] [address] Emilia Proctor PA-C [facility] [address] [place] [address] 07/14/2024 2:40 PM CDT Allied Health/Nurse Visit [facility], [facility] [address] [place], [place] [phone] Humberto Harman MD [facility]. [place] [address] [place], [place] [address] Health Maintenance Due Date Last Done Comments Annual Medicare Wellness Visit 2006 RSV Immunization or 60+ Years (1 - 1-dose 75+ series) 2016 Zoster Vaccines (3 of 3) 01/05/2021 021, 06/29/2012, 04/05/2012 DTaP, Tdap and Td Vaccines (2 - Td or Tdap) 06/29/2022 06/29/2012 ASCVD LDL 10/31/2023 10/30/2022, 08/07, 04/12/2020, Additional history exists COVID-19 Vaccine ( season) 2023 11/02/2021, 02/28/2021, 07/13/2020, Additional history exists Influenza Adult (#1) 2024 02/26/2023, 02/27/2021, 12/24/2019, Additional history exists Dexa Scan (General) Completed 09/10/2013, 4 Pneumococcal Vaccine: 65+ Years Completed 12/24/2017, 03/01/2015, 01/29/2015, Additional history exists PHQ-2 (Physician [place]) Completed 05/02/2024 Meningococcal B Vaccine Aged Out No l onger eligible based on patient's age to complete this topic Meningococcal Vaccine Aged Out No amy dalia eligible based on patient's age to complete this topic RSV Immunizations Under 20 Months Aged Out No longer eligible based on patient's age to complete this topic Goals Goal Patient Goal Type Associated Problems Recent Progress Patient-Stated? Author Health - patient able to perform ADLs independently General No Concepcion Lipscomb, MERCHANDISE FLOW TEAM MEMBER Family - family caregiver with be involved in care transitions and discharge planning Lifestyle No Ignacio Hernandez, RN Medical Devices Implanted Type Area Bottle Line Worker Device Identifier Shelf Expiration Date Model / Serial / Lot Cement Full Dose - [id number] Implanted:Qty: 1 on 10/24/2022 by Patricio Bain DO at [facility] Cement Implant Right: Knee [employer] - DIV AZRA RADHA [id number] 11/06/2024 6191-1-0 / [id number] Plate [place] Tibal Base Size 3 - [id number] Implanted:Qty: 1 on 10/24/2022 by Patricio Bain DO at [facility] Knee Components Right: Knee [employer] DIV [employer] [id number] 03/27/2027 5520-B-3 00 / / [id number] Component Femoral 3 Knee Right Cruciate Retain Cement Triathlon Sterile Latex Free - [id number] Implanted:Qty: 1 on 10/24/2022 by Patricio Bain DO at [facility] Knee Components Right: Knee [employer] - DIV [employer] RAD[employer] [id number] 06/22/2027 5510-F-3 02 / / [id number] Rv Lead Implant-2022 Implanted:Qty: 1 on 02/28/2023 by Chase Mix MD Lead Implant [employer] [id number] 11/30/2024 5076- 52 / [id number] / Description:[place] Ra Pin Lead Implant- [id number] Implanted:Qty: 1 on 03/12/2023 by Cardiology, [place] Lead Implant [facility] [employer] CARDIAC RHYTHM AND HEART FAILURE - DIV M 6725 / [id number] / Description:RA lead port lori monge Mdt Dc Pacmaker-02/28 Implanted:Qty: 1 on 02/28/2023 by Chase Mix MD Pacemaker [employer] CARDIAC RHYTHM AND HEART FAILURE - DIV M 06/20/2024 [id number] CHINO / [id number] / Description:DEVICE IS NOT MR CONDITIONAL ( PORT PLUG MAKES IT NOT MR CONDITIONAL) PER [employer] Triathlon X3 Summetric Patella Implanted:Qty: 1 on 10/24/2022 by Patricio Bain DO at [facility] Right: Knee [id number] 04/25/2027 5550-G-2 98-E / / [id number] Triathlon Tibial Bearing Insert Cs Implanted:Qty: 1 on 10/24/2022 by Patricio Bain DO at [facility] Right: Knee [id number] 07/27/2027 [id number] / / [id number] Explanted Type Area Bottle Line Worker Device Identifier Shelf Expiration Date Model / Serial / Lot Pin [place] Bone Benjamin 140 X 4 - [id number] Explanted:Qty: 1 on 10/24/2022 at [facility] Pin Right: Femur [employer] DIV [employer] RADHA 08/30/2027 [id number] / / [id number] Pin Azra Bone Benjamin 110 X 4 - [id number] Explanted:Qty: 1 on 10/24/2022 at [facility] Pin Right: Femur [employer] - DIV [employer]RA RADHA 06/23/2027 [id number] / / [id number] Pump Pain On-Q 400ml - [id number] Implanted:Qty: 1 on 10/24/2022 by Patricio Bain DO at [facility] Explanted:Qty: 1 on 10/31/2022 Pump Right: Knee [employer] [id number] / / Procedures Procedure Name Priority Date/Time Associated Diagnosis Comments OUTSIDE LAB (SCAN ORDER) 05/01/2024 OUTSIDE LAB (SCAN ORDER) 05/01/2024 OUTSIDE PT/INR (SCAN ORDER) 05/01/2024 THYROXINE, FREE (FT4) Routine 04/07/2024 9:13 AM [employer] CONVEYOR TSH W/REFLEX Routine 04/07/2024 9:13 AM DRI[employer] CONVEYOR Hypothyroidism THYROXINE, FREE (FT4) Routine 02/21/2024 10:05 AM [employer] CONVEYOR TSH W/REFLEX Routine 02/21/2024 10:05 AM [employer] CONVEYOR Hypothyroidism, unspecified type LIPID PANEL Routine 10/30/2022 3:00 AM CDT from Last 3 Months or Most Recently Relevant to Health Maintenance Results * OUTSIDE PT/INR (SCAN ORDER) (05/01/2024) 05/01/2024 [facility] Scanned SCANNING Final Resu lt * OUTSIDE LAB (SCAN ORDER) (05/01/2024) Only the most recent of2 resultswithin the time period is included. 05/01/2024 [facility] Scanned SCANNING Final Resu lt * (ABNORMAL) TSH W/REFLEX (04/07/2024 9:13 AM DRIER BELT CONVEYOR) Only the most recent of2 resultswithin the time period is included. TSH 12.621(H) 0.358 - 3.74 uIU/ML 04/07/2024 10:17 [address] [address] [facility] Comment: HIGH DOSES OF BIOTIN MAY INTERFERE WITH THIS TEST RESULT. CORRELATION TO CLINICAL HISTORY AND PRESENTATION RECOMMENDED. 04/07/2024 9:13 AM DRIER BELT CONVEYOR Morro Kiser MD LABORATORY Final Resul t [facility] [address] [place] [address], [place] [phone] * THYROXINE, FREE (FT4) (04/07/2024 9:13 AM DRIER BELT CONVEYOR) Only the most recent of2 resultswithin the time period is included. FREE T4 0.95 0.76 - 1.46 NG/DL 04/07/2024 3:36 PM D[employer] [facility] 04/07/2024 9:13 AM D[employer] CONVEYOR Morro Kiser MD LABORATORY Final Resul t [facility] [address] [place] [address], [place] [phone] * LIPID PANEL (10/30/2022 3:00 AM CDT) CHOLESTEROL 122 <200 MG/DL 10/30/2022 3:31 AM [facility] TRIGLYCERIDES 80 <150 MG/DL 10/30/2022 3:31 AM [facility] HDL 45 >40.0 MG/DL 10/30/2022 3:31 AM [facility] LDL (CALCULATED) 61 <100 MG/DL 10/31/19 3:31 AM [facility] NON HDL CHOLESTEROL 77 <130 MG/DL 10/30 3:31 AM [facility] CHOL/HDL RATIO 2.7 0.0 - 4.5 10/30/2022 3:31 AM [facility] VLDL CALCULATION 16 5 - 55 MG/DL 10/30/2022 3:31 AM [facility] LIPID INTERPRETATION 10/30/2022 3:31 AM [facility] Comment: [facility] REPORT RECOMMENDATIONS: ?ADULT ?CHILD ??LOW RISK: ?CHOLESTEROL ? <200 ? <170 ?TRIGLYCERIDE ?<150 ?--- ?HDL ? >=60 ?--- ?LDL ? <100 ? <110 ??BORDERLINE: ?CHOLESTEROL ? 200-239 ?? 170-199 ?TRIGLYCERIDE ?150-199 ? --- ?HDL ?40-59 ?--- ?LDL ? 100-159 ?? 110-129 ??HIGH RISK: ?CHOLESTEROL ? >=240 ?>=200 ?TRIGLYCERIDE ?>=200 ? --- ?HDL ?<40 ?--- ?LDL ? >=160 ?>=130 10/30/2022 3:00 AM CDT us Carmen Florence MD LABORATORY Final Resul t [facility] [address] [place] [address], from Last 3 Months or Most Recently Relevant to Health Maintenance Insurance [facility] MEDIC[place] [address] MEDICARE Advance Directives * Full Code (Latest Code Status on File) Date Activated Date Inactivated Comments 03/21/2023 6:36 PM 05/03/2023 12:16 PM * Full Code Date Activated Date Inactivated Comments 11/03/2022 9:58 AM 02/28/2023 10:27 AM * Full Code Date Activated Date Inactivated Comments 10/29/2022 7:45 PM 10/31/2022 8:00 PM * Full Code Date Activated Date Inactivated Comments 10/28/2022 1:54 PM 10/29/2022 5:26 PM * Full Code Date Activated Date Inactivated Comments 10/24/2022 10:47 AM 10/27/2022 3:58 PM Care Teams [employer] Auditor Relationship Specialty [place] [address] [place] [address] PCP - General FAMILY PRACTICE 03/20/23 Jerson Pino MD [facility]. [facility] [address] [place] [address] [place] Compliance Engineer CARDIOVASCULAR DISEASE 06/29/17 Humberto Harman MD [facility]. [facility] [address] [place] [address] Consulting Physician CARDIOVASCULAR DISEASE 04/17/24
--- OUTSIDE RECORDS SUMMARY | 2024-05-14 01:17 | XMS_ITS | Patient Health Summary ---
Author Organization [facility] Address [address] [place] [address] Care Team Providers Care Front End Application Developer Name Role Phone AraceliSeble Sue EUGENE-ADDICTION THERAPIST Primary Care Provider [phone] Note from [facility],non-owned Affiliates and Associated Physician Practices is amultiple site organization consisting of ambulatory clinics and hospital sitesin [place], [place], [place] and [place]. This disclosure is being madepursuant to the Care Everywhere program and may not contain all information available regarding this patient. Last updated 17.[facility] Allergies * Adhesive Sensitivity(Rash) -Medium Criticality * Baclofen(Nausea and/or Vomiting) * Lamotrigine(Rash) -Medium Criticality * Atorvastatin(Myalgias) * Hydrocodone-Acetaminophen(Other) * Cilostazol(Palpitations) * Propranolol(Other) * Tizanidine(Other) Medications * Be aware that medications may not be up to date on this document. Alwaysverify current medications with the patient. * multivitamin daily (THERAGRAN) tablet Take 1 Tab by mouth daily with food. * Docosahexaenoic Acid (DHA COMPLETE PO) Take 1 Tab by mouth once daily. * Cholecalciferol (VITAMIN D-3) 1000 UNITS CAPS Take 2 Caps by mouth once daily. * vitamin C (ASCORBIC ACID) 1000 MG TABS tablet Take 1,000 mg by mouth once daily. * cyanocobalamin (VITAMIN B-12) 1000 MCG tablet Take 1,000 mcg by mouth once daily. * Ferrous Sulfate (IRON) 325 (65 FE) MG TABS Take 1 Tab by mouth as directed. 2 times a week * azelastine (ASTELIN) 0.1 % nasal spray(Started 04/16/2015) Celina 1 Celina into each nostril 2 times daily 1 refill left * acyclovir (Zovirax) 5 % cream(Started 11/24/2022) Apply 5 times daily for 4 days for cold sores. * amiodarone (Cordarone) 200 MG tablet(Started 01/24/2023) Take 1 (one) tablet by mouth 2 times daily * amLODIPine (Norvasc) 5 MG tablet(Started 02/05/2023) Take 1 (one) tablet by mouth once daily * diphenhydrAMINE (Benadryl) 25 MG capsule Take 1 (one) capsule by mouth 2 times daily * Magnesium Oxide 250 MG Take 250 mg by mouth once daily * mirabegron ER 24hr (Myrbetriq) 25 MG tablet(Started 11/24/2022) Take 1 (one) tablet by mouth once daily * [place]-3 Fatty Acids (fish oil) 1000 MG capsule Take 500 mg by mouth once daily * rivaroxaban (Xarelto) 15 MG tablet(Started 03/13/2023) Take 1 (one) tablet by mouth once daily for 90 days 2 refills by 03/12/2024 * metoprolol tartrate IR (Lopressor) 25 MG tablet(Started 03/13/2023) Take 1 (one) tablet by mouth 2 times daily for 90 days 2 refills by 03/12/2024 Active Problems Problem Noted Date Diagnosed Date SSS (sick sinus syndrome) 03/04/2023 Mitral valve prolapse 03/04/2023 Atrial fibrillation 03/04/2023 Asthma 03/04/2023 Hemopneumothorax on right 03/01/2023 Left hip pain 06/12/2014 Hypothyroidism 07/30/2012 Sacroiliac dysfunction 07/30/2012 Immunizations * INFLUENZA VACCINE(Given 12/24/2017, 01/30/2017, 12/24/2015, 01/07/2015, 01/25/2012) * INFLUENZA VACCINE, HIGH-DOSE, QUADR. (FLUZONE HIGH-DOSE QUADRIVALENT; 65Y+), 0.7 ML (HD-IIV4)(Given 02/26/2023, 02/27/2021) * INFLUENZA VACCINE, HIGH-DOSE, TRIV. (FLUZONE HIGH-DOSE TRIVALENT; 65Y+) (HD-IIV3)(Given 12/24/2019, 01/06/2019, 12/24/2017, 01/30/2017, 12/24/2015) * INFLUENZA VACCINE, QUADR. (FLUZONE PF QUADRIVALENT; 6-35MO), 0.25 ML (IIV4) (Given 01/29/2015) * PNEUMOCOCCAL PCV7 CONJ, PEDS(Given 03/01/2015, 01/29/2015) * PNEUMOCOCCAL PPV VACCINE(Given 12/24/2017, 06/29/2009) * Pneumococcal Pcv13 Conj(Given 01/07/2015) * TDAP, HISTORIC VACCINE(Given 06/29/2012) * ZOSTER VACCINE, LIVE(Given 06/29/2012, 04/05/2012) * Zoster Hzv Vacc Recombinant Inj Im(Given 11/10/2020) Social History Tobacco Use Types Packs/Day Years [...] and heating? Not hard at all 03/01/2023 [facility] - Occupational Stress [...] slept in a fci (including now)? No 03/01/2023 Sex and Gender Information Value Date Recorded Sex Assigned at Not on file Gender Identity Not on file Sexual Orientation Not on file Last Filed Vital Signs Vital Sign Reading Time Taken Comments Blood Pressure 108/49 03/15/2023 10:51 AM [employer] Pulse 57 03/15/2023 10:51 AM [employer] Temperature 36.4 ??C (97.5 ??F) 03/15/2023 10:[address] Respiratory Rate 20 03/15/2023 10:51 AM [employer] Oxygen Saturation 91% 03/15/2023 10:51 AM [employer] Inhaled Oxygen Concentration - - Weight 53 kg (116 lb 12.8 oz) 03/15/2023 6:13 AM [employer] Height 157.5 cm (5' 2 ) 03/13/2023 9:00 AM [employer] Body Mass Index 21.36 03/13/2023 9:00 AM [employer] Medical Devices Implanted Type Area Polysomnograph Tech Device Identifier Shelf Expiration Date Model / Serial / Lot Env Defib 3.3x2.9in Aigisrx Icd Tyrx Lg - [id number] Implanted:Qty: 1 on 03/12/2023 by Monty Myers MD at [facility] [employer] [id number] 12/09/2023 [id number] / [id number] / [id number] Procedures * CARDIAC EKG ORDER(Performed 03/16/2023) * XR CHEST 1VW PORTABLE(Performed 03/15/2023) Performed for Pleural effusion * PT-INR [facility](Performed 03/15/2023) * COMPREHENSIVE METABOLIC PANEL(Performed 03/15/2023) * CBC W AUTO DIFFERENTIAL(Performed 03/15/2023) * PHOSPHORUS BLOOD(Performed 03/15/2023) * MAGNESIUM BLOOD(Performed 03/15/2023) * PREPARE RBC LEUKOREDUCED UNIT(Performed 03/15/2023) Performed for Hemopneumothorax on right * PREPARE RBC LEUKOREDUCED UNIT(Performed 03/15/2023) Performed for Hemopneumothorax on right * PREPARE RBC LEUKOREDUCED UNIT(Performed 03/15/2023) * LDH BLOOD(Performed 03/14/2023) * XR CHEST 1VW PORTABLE(Performed 03/14/2023) Performed for Pleural effusion * CYTOLOGY NON-PEST LOCATOR PANEL (STL)(Performed 03/14/2023) Performed for Pleural effusion * DIFFERENTIAL MANUAL FLUID(Performed 03/14/2023) * HEMATOCRIT FLUID(Performed 03/14/2023) * LDH BODY FLUID(Performed 03/14/2023) * PH BODY FLUID ([facility] ONLY)(Performed 03/14/2023) * PROTEIN BODY FLUID(Performed 03/14/2023) * GLUCOSE BODY FLUID(Performed 03/14/2023) * CELL COUNT W DIFFERENTIAL FLUID(Performed 03/14/2023) * CULTURE FLUID+GRAM STAIN(Performed 03/14/2023) * CULTURE ANAEROBE(Performed 03/14/2023) * CULTURE AFB+SMEAR(Performed 03/14/2023) * PT-INR [facility](Performed 03/14/2023) * COMPREHENSIVE METABOLIC PANEL(Performed 03/14/2023) * CBC W AUTO DIFFERENTIAL(Performed 03/14/2023) * PHOSPHORUS BLOOD(Performed 03/14/2023) * MAGNESIUM BLOOD(Performed 03/14/2023) * XR CHEST 1VW PORTABLE(Performed 03/13/2023) Performed for Hemopneumothorax on right * ECHO LIMITED COLOR FLOW AND DOPPLER(Performed 03/13/2023) Performed for SSS (sick sinus syndrome) (HCC) * XR CHEST 1VW PORTABLE(Performed 03/13/2023) Performed for Hemopneumothorax on right * PT-INR [facility](Performed 03/13/2023) * COMPREHENSIVE METABOLIC PANEL(Performed 03/13/2023) * CBC W AUTO DIFFERENTIAL(Performed 03/13/2023) * PHOSPHORUS BLOOD(Performed 03/13/2023) * MAGNESIUM BLOOD(Performed 03/13/2023) * EKG 12-LEAD(Performed 03/12/2023) Performed for SSS (sick sinus syndrome) (HCC) * ELECTROPHYSIOLOGY PROCEDURE(Performed 03/12/2023) Performed for SSS (sick sinus syndrome) (HCC) * BLOOD GAS+COOX+LYTES+METAB ARTERIAL POCT(Performed 03/12/2023) * ARTERIAL LINE NOTE(Performed 03/12/2023) * ENDOTRACHEAL TUBE NOTE(Performed 03/12/2023) * GLUCOSE - POINT OF CARE(Performed 03/12/2023) * PT-INR [facility](Performed 03/12/2023) * COMPREHENSIVE METABOLIC PANEL(Performed 03/12/2023) * PHOSPHORUS BLOOD(Performed 03/12/2023) * MAGNESIUM BLOOD(Performed 03/12/2023) * CBC W AUTO DIFFERENTIAL(Performed 03/12/2023) * TYPE + SCREEN PANEL(Performed 03/11/2023) * PT-INR [facility](Performed 03/11/2023) * COMPREHENSIVE METABOLIC PANEL(Performed 03/11/2023) * PHOSPHORUS BLOOD(Performed 03/11/2023) * MAGNESIUM BLOOD(Performed 03/11/2023) * CBC W AUTO DIFFERENTIAL(Performed 03/11/2023) * PT-INR [facility](Performed 03/10/2023) * COMPREHENSIVE METABOLIC PANEL(Performed 03/10/2023) * CBC W AUTO DIFFERENTIAL(Performed 03/10/2023) * PHOSPHORUS BLOOD(Performed 03/10/2023) * MAGNESIUM BLOOD(Performed 03/10/2023) * ECHO LIMITED OR FOLLOWUP(Performed 03/09/2023) Performed for Pericardial effusion (HCC) * PT-INR [facility](Performed 03/09/2023) * COMPREHENSIVE METABOLIC PANEL(Performed 03/09/2023) * CBC W AUTO DIFFERENTIAL(Performed 03/09/2023) * PHOSPHORUS BLOOD(Performed 03/09/2023) * MAGNESIUM BLOOD(Performed 03/09/2023) * T4 FREE(Performed 03/08/2023) * TSH REFLEX FREE T4(Performed 03/08/2023) * PT-INR [facility](Performed 03/08/2023) * COMPREHENSIVE METABOLIC PANEL(Performed 03/08/2023) * CBC W AUTO DIFFERENTIAL(Performed 03/08/2023) * PHOSPHORUS BLOOD(Performed 03/08/2023) * MAGNESIUM BLOOD(Performed 03/08/2023) * EKG 12-LEAD(Performed 03/07/2023) Performed for SSS (sick sinus syndrome) (HCC) * ECHO COMPLETE(Performed 03/07/2023) Performed for Pericardial effusion (HCC) * CORTISOL BLOOD AM(Performed 03/07/2023) * PT-INR [facility](Performed 03/07/2023) * COMPREHENSIVE METABOLIC PANEL(Performed 03/07/2023) * CBC W AUTO DIFFERENTIAL(Performed 03/07/2023) * PHOSPHORUS BLOOD(Performed 03/07/2023) * MAGNESIUM BLOOD(Performed 03/07/2023) * GLUCOSE - POINT OF CARE(Performed 03/07/2023) * EKG 12-LEAD(Performed 03/06/2023) Performed for SSS (sick sinus syndrome) (HCC) * EKG 12-LEAD(Performed 03/06/2023) Performed for SSS (sick sinus syndrome) (HCC) * T4 FREE(Performed 03/06/2023) * TSH REFLEX FREE T4(Performed 03/06/2023) * PT-INR [facility](Performed 03/06/2023) * COMPREHENSIVE METABOLIC PANEL(Performed 03/06/2023) * CBC W AUTO DIFFERENTIAL(Performed 03/06/2023) * PHOSPHORUS BLOOD(Performed 03/06/2023) * MAGNESIUM BLOOD(Performed 03/06/2023) * US ABDOMEN LIMITED(Performed 03/05/2023) Performed for LFT elevation * XR CHEST 1VW PORTABLE(Performed 03/05/2023) Performed for Hemopneumothorax on right * HEPATITIS C AB SCREEN RFLX NAAT QUANT(Performed 03/05/2023) * HEPATITIS B PANEL(Performed 03/05/2023) * PT-INR [facility](Performed 03/05/2023) * COMPREHENSIVE METABOLIC PANEL(Performed 03/05/2023) * EKG 12-LEAD(Performed 03/05/2023) Performed for SSS (sick sinus syndrome) (HCC) * HEPATIC FUNCTION PANEL(Performed 03/05/2023) * RENAL FUNCTION PANEL(Performed 03/05/2023) * MAGNESIUM BLOOD(Performed 03/05/2023) * CBC W/O DIFFERENTIAL(Performed 03/05/2023) * XR CHEST 1VW(Performed 03/04/2023) Performed for Hemopneumothorax on right * CBC W AUTO DIFFERENTIAL(Performed 03/04/2023) * EKG 12-LEAD(Performed 03/04/2023) Performed for Hemopneumothorax on right * GLUCOSE - POINT OF CARE(Performed 03/04/2023) * XR CHEST 1VW PORTABLE(Performed 03/04/2023) Performed for Hemopneumothorax on right * PHOSPHORUS BLOOD(Performed 03/04/2023) * MAGNESIUM BLOOD(Performed 03/04/2023) * BASIC METABOLIC PANEL (CALCIUM TOTAL)(Performed 03/04/2023) * CBC W/O DIFFERENTIAL(Performed 03/04/2023) * GLUCOSE - POINT OF CARE(Performed 03/03/2023) * XR CHEST 1VW PORTABLE(Performed 03/03/2023) Performed for Hemopneumothorax on right * PHOSPHORUS BLOOD(Performed 03/03/2023) * MAGNESIUM BLOOD(Performed 03/03/2023) * CBC W/O DIFFERENTIAL(Performed 03/03/2023) * BASIC METABOLIC PANEL (CALCIUM TOTAL)(Performed 03/03/2023) * ECHO COMPLETE(Performed 03/02/2023) Performed for Hemopneumothorax on right * XR CHEST 1VW PORTABLE(Performed 03/02/2023) Performed for Trauma * CBC W/O DIFFERENTIAL(Performed 03/02/2023) * BASIC METABOLIC PANEL (CALCIUM TOTAL)(Performed 03/02/2023) * URINALYSIS W/MICROSCOPIC NO CULTURE(Performed 03/01/2023) * BLOOD TYPE VERIFICATION(Performed 03/01/2023) * CBC W/O DIFFERENTIAL(Performed 03/01/2023) * XR CHEST 2VW(Performed 03/01/2023) Performed for Trauma * PT EVAL AND TREAT(Performed 03/01/2023) * OT EVAL AND TREAT(Performed 03/01/2023) * TROPONIN-I HIGH SENSITIVE(Performed 03/01/2023) * CT LUMBAR SPINE WO CONTRAST(Performed 03/01/2023) Performed for Trauma * CT THORACIC SPINE WO CONTRAST(Performed 03/01/2023) Performed for Trauma * CT CHEST ABDOMEN PELVIS W CONT(Performed 03/01/2023) Performed for Trauma * CT CERVICAL SPINE WO CONTRAST(Performed 03/01/2023) Performed for Trauma * CT HEAD WO CONTRAST(Performed 03/01/2023) Performed for Trauma * EKG 12-LEAD(Performed 03/01/2023) Performed for Trauma * TROPONIN-I HIGH SENSITIVE(Performed 03/01/2023) * XR KNEE RIGHT 2VW OR LESS(Performed 03/01/2023) Performed for Trauma * XR FEMUR RIGHT 2VW(Performed 03/01/2023) Performed for Trauma * XR PELVIS 1 OR 2VW(Performed 03/01/2023) Performed for Trauma * EKG 12-LEAD(Performed 03/01/2023) Performed for Trauma * TEG 6S PLATELET MAPPING(Performed 03/01/2023) * TEG 6 GLOBAL HEMOSTASIS W/ LYSIS(Performed 03/01/2023) * XR CHEST 1VW PORTABLE(Performed 03/01/2023) Performed for Trauma * TYPE + SCREEN PANEL(Performed 03/01/2023) * PTT [facility](Performed 03/01/2023) * PT-INR [facility](Performed 03/01/2023) * CBC W AUTO DIFFERENTIAL(Performed 03/01/2023) * BASIC METABOLIC PANEL (CALCIUM TOTAL)(Performed 03/01/2023) * TUBERCULOSIS (PPD) INTRADERMAL(Performed 05/25/2015) Performed for Physical exam, annual * CBC W AUTO DIFFERENTIAL(Performed 04/16/2015) Performed for Sacroiliac dysfunction * COMPREHENSIVE METABOLIC PANEL(Performed 04/16/2015) Performed for Sacroiliac dysfunction * TSH(Performed 04/16/2015) Performed for Acquired hypothyroidism * T4 FREE(Performed 04/16/2015) Performed for Acquired hypothyroidism * AMB REFERRAL TO ORTHOPEDICS(Performed 09/09/2014) Performed for Low back pain, Left hip pain * XR HIP LEFT 2VW OR MORE(Performed 08/26/2014) Performed for Left hip pain * XR LUMBAR SPINE 4VW OR MORE(Performed 08/24/2014) Performed for Low back pain * URINALYSIS AUTO - POINT OF CARE (AMB) SMGS(Performed 08/24/2014) Performed for Acute left flank pain * COMPREHENSIVE METABOLIC PANEL(Performed 06/09/2014) Performed for Hypothyroidism, Leg cramp * XR HIP LEFT 2VW OR MORE(Performed 06/09/2014) Performed for Left hip pain * IRON + TRANSFERRIN PANEL(Performed 04/27/2014) Performed for Anemia * FERRITIN(Performed 04/27/2014) Performed for Anemia * T4 FREE(Performed 04/27/2014) Performed for Hypothyroidism * TSH(Performed 04/27/2014) Performed for Hypothyroidism * COMPREHENSIVE METABOLIC PANEL(Performed 04/27/2014) Performed for Sacroiliac dysfunction * CBC W AUTO DIFFERENTIAL(Performed 04/27/2014) Performed for Anemia * TSH(Performed 12/10/2013) Performed for Hypothyroidism * XR CERVICAL SPINE 4 OR 5VW(Performed 11/05/2013) Performed for Neck pain * MAMMO BILAT SCREENING(Performed 09/10/2013) Performed for Other screening mammogram * DEXA BONE DENSITY 2 SITES(Performed 09/10/2013) Performed for Osteoporosis * LIPID PROFILE(Performed 08/13/2013) Performed for Screening for other and unspecified cardiovascular conditions * OCCULT BLOOD FECES FIT IMMUNOASSAY(Performed 07/23/2013) Performed for Special screening for malignant neoplasms, colon * OCCULT BLOOD FECES FIT IMMUNOASSAY(Performed 07/04/2013) Performed for Special screening for malignant neoplasms, colon * VITAMIN D 25-HYDROXY(Performed 07/01/2013) Performed for Vitamin D deficiency * VITAMIN B12(Performed 07/01/2013) Performed for B12 deficiency * TSH(Performed 07/01/2013) Performed for Hypothyroidism * COMPREHENSIVE METABOLIC PANEL(Performed 07/01/2013) Performed for Hypothyroidism, Fatigue * CBC W AUTO DIFFERENTIAL(Performed 07/01/2013) Performed for Fatigue * XR CHEST 2VW(Performed 12/20/2012) Performed for Pleuritic chest pain * TSH(Performed 12/20/2012) Performed for Hypothyroidism * COMPREHENSIVE METABOLIC PANEL(Performed 12/20/2012) Performed for Pleuritic chest pain * CBC W AUTO DIFFERENTIAL(Performed 12/20/2012) Performed for Pleuritic chest pain * GROSS + MICRO EXAM(Performed 06/05/1997) Results * CARDIAC EKG ORDER (03/16/2023 2:24 PM [employer]) Narrative 03/16/2023 2:24 PM [employer] Ordered by an unspecified provider. Scanned Document CARDIAC SERVICES ORD ERABLES * XR CHEST 1VW PORTABLE (03/15/2023 6:59 AM [employer]) Only the most recent of9 resultswithin the time period is included. Anatomical Region Laterality Modality Chest Radiographic Fabi ging 03/15/2023 7:45 AM [employer] Narrative 03/15/2023 8:08 PM [employer] PROCEDURE: ??XR CHEST 1VW PORTABLE, XR CHEST 1VW PORTABLE, XR CHEST 1VW PORTABLE, DATE/TIME OF EXAM: ??03/15/2023 7:00 AM, LOCATION ??[facility] INDICATION: J90: Pleural effusion ADDITIONAL CLINICAL INFORMATION: Ordering Provider Reason For Exam: ??pleural effusion (accession [id number]), s/p thoracentesis (accession [id number]), concern for effusion, eval for improvement (accession [id number]) COMPARISON: None. TECHNIQUE: Frontal radiograph of the chest. FINDINGS/IMPRESSION: Chest x-ray 03/13/2023 at 4:21 PM: *Status post removal of the right atrial pacemaker lead. Cardiac pacemaker device overlies the left chest wall, now with a single lead seen terminating within the right ventricle. Bilateral moderately sized pleural effusions. Bibasilar subsegmental atelectasis. No pneumothorax. The cardiac silhouette is obscured. There is atherosclerotic calcification of the aorta. There are calcifications of the costochondral cartilages. The visible bony thorax is intact. Chest x-ray 03/14/2023 at 11:36 AM: *Devices as above. Bilateral moderately sized pleural effusions, possibly slightly increased in size notably on the left. Similar appearance of bibasilar atelectasis. The cardiac silhouette is obscured. No pneumothorax. Chest x-ray 03/15/2023 at 6:32 AM: *Devices as above. Decreased bilateral pleural effusions, now small to moderate in size. New/increased airspace and interstitial opacities within the right lower lung representing pneumonia versus aspiration versus pulmonary edema. No pneumothorax. The cardiac silhouette is partially obscured. Report dictated by Kev Amador DO (Machine Technician). I, Gaurang Quinones MD have personally reviewed and interpreted this examination/study. > Interpreting Provider: Gaurang Quinones MD on 03/15/2023 8:08 PM Procedure Note Gaurang Quinones MD - 03/15/2023 PROCEDURE: XR CHEST 1VW PORTABLE, XR CHEST 1VW PORTABLE, XR CHEST 1VW PORTABLE, DATE/TIME OF EXAM: 03/15/2023 7:00 AM, LOCATION [facility] INDICATION: J90: Pleural effusion ADDITIONAL CLINICAL INFORMATION: Ordering Provider Reason For Exam: pleural effusion ([id number]), s/p thoracentesis (accession [id number]), concern for effusion, eval for improvement (accession [id number]) COMPARISON: None. TECHNIQUE: Frontal radiograph of the chest. FINDINGS/IMPRESSION: Chest x-ray 03/13/2023 at 4:21 PM: *Status post removal of the right atrial pacemaker lead. Cardiacpacemaker device overlies the left chest wall, now with a single lead seen terminating within the right ventricle. Bilateral moderately sized pleural effusions. Bibasilar subsegmental atelectasis. No pneumothorax. The cardiac silhouette is obscured. Thereis atherosclerotic calcification of the aorta. There are calcifications ofthe costochondral cartilages. The visible bony thorax is intact. Chest x-ray 03/14/2023 at 11:36 AM: *Devices as above. Bilateral moderately sized pleural effusions, possibly slightlyincreased in size notably on the left. Similar appearance of bibasilaratelectasis. The cardiac silhouette is obscured. No pneumothorax. Chest x-ray 03/15/2023 at 6:32 AM: *Devices as above. Decreased bilateral pleural effusions, now small to moderate in size. New/increased airspace and interstitial opacities within the right lower lung representing pneumonia versus aspiration versus pulmonary edema. No pneumothorax. The cardiac silhouette is partially obscured. Report dictated by Kev Amador DO (Machine Technician). I, Gaurang Quinones MD have personally reviewed and interpreted this examination/study. > Interpreting Provider: Gaurang Quinones MD on 03/15/2023 8:08 PM Monty Myers MD DIAGNOSTIC I MAGING ORDERABLES * (ABNORMAL) PT-INR [facility] (03/15/2023 1:54 AM [employer]) Only the most recent of12 resultswithin the time period is included. PT 25.7(H) 12.1 - 14.8 Seconds 03/15/2023 4:40 AM [employer] [facility] INR 2.4 See Comment 03/15/2023 4:40 AM [facility] Comment:The suggested therap eutic range for standard coumadin (warfarin) therapy is an INR of 2.0-3.0. For high-risk patients (Mechanical Mitral Valve Prosthesis, etc.), the suggested prophylactic therapeutic range is an INR of 2.5-3.5. Blood BLOOD SPECIMEN / Unknown Lab Venipuncture / Unknown 03/15/2023 1:54 AM [employer] 03/15/2023 4:18 AM [employer] Omar John MD LAB - COAGULATION OR DERABLES [facility] [address] [place] [address], [facility] [phone] * (ABNORMAL) CBC W AUTO DIFFERENTIAL (03/15/2023 1:54 AM [facility]) Only the most recent of16 resultswithin the time period is included. WBC 11.8(H) 3.5 - 10.5 10? 3 /uL 03/15/2023 4:31 AM [facility] RBC 2.78(L) 3.80 - 5.20 10? 6 /uL 03/15/2023 4:31 AM [facility] Hemoglobin 8.2(L) 12.0 - 15.6 g/dL 03/15/2023 4:31 AM [facility] Hematocrit 26.1(L) 35.0 - 45.0 % 03/15/2023 4:31 AM [facility] MCV 93.9 80.7 - 98.3 fL 03/15/2023 4:31 AM [facility] MCH 29.5 26.7 - 34.0 pg 03/15/2023 4:31 AM [facility] MCHC 31.4 30.8 - 35.9 g/dL 03/15/2023 4:31 AM [facility] RDW-SD 53.2(H) 36.0 - 50.0 fL 03/15/2023 4:31 AM [facility] RDW-CV 15.7(H) 11.2 - 14.8 % 03/15/2023 4:31 AM [facility] Platelet Count 206 150 - 400 10? 3 /uL 03/15/2023 4:31 AM [facility] MPV 9.6 9.4 - 12.9 fL 03/15/2023 4:31 AM [facility] nRBC Absolute 0.00 0 10? 3 /uL 03/15/2023 4:31 AM [facility] nRBC Auto 0.0 0 /100 WBC 03/15/2023 4:31 AM [facility] Neutrophils % 81.6(H) 35.0 - 70.0 % 03/15/2023 4:31 AM [facility] Lymphocytes % 10.3(L) 20.0 - 43.0 % 03/15/2023 4:31 AM [facility] Monocytes % 5.9 5.0 - 13.0 % 03/15/2023 4:31 AM [facility] Eosinophils % 0.9 0.0 - 6.0 % 03/15/2023 4:31 AM [facility] Basophil % 0.3 0.0 - 2.0 % 03/15/2023 4:31 AM [facility] Neutrophils Absolute 9.65(H) 1.60 - 7.00 10? 3 /uL 03/15/2023 4:31 AM [facility] Lymphocyte Absolute 1.22 1.10 - 3.90 10? 3 /uL 03/15/2023 4:31 AM [facility] Monocytes Absolute 0.70 0.26 - 1.07 10? 3 /uL 03/15/2023 4:31 AM [facility] Eosinophils Absolute 0.11 0.00 - 0.47 10? 3 /uL 03/15/2023 4:31 AM [facility] Basophils Absolute 0.03 0.00 - 0.08 10? 3 /uL 03/15/2023 4:31 AM [facility] Immature Granulocytes % 1.0 0.0 - 1.0 % 03/15/2023 4:31 AM [facility] Immature Granulocytes Absolute 0.12 03/15/2023 4:31 AM [facility] Blood BLOOD SPECIMEN / Unknown Lab Venipuncture / Unknown 03/15/2023 1:54 AM [employer] 03/15/2023 4:18 AM [employer] Omar John MD LAB - HEMATOLOGY ORD ERABLES [facility] [address] [place] [address], [facility] [phone] * (ABNORMAL) COMPREHENSIVE METABOLIC PANEL (03/15/2023 1:54 AM [employer]) Only the most recent of16 resultswithin the time period is included. BUN 11 7 - 26 mg/dL 03/15/2023 4:55 AM [facility] Creatinine 0.69 0.56 - 0.96 mg/dL 03/15/2023 4:55 AM [facility] Sodium 142 136 - 145 mmol/L 03/15/2023 4:55 AM [facility] Potassium 3.4(L) 3.5 - 4.5 mmol/L 03/15/2023 4:55 AM [facility] Chloride 102 98 - 107 mmol/L 03/15/2023 4:55 AM [facility] CO2 30(H) 22 - 29 mmol/L 03/15/2023 4:55 AM [facility] Glucose 101 70 - 115 mg/dL 03/15/2023 4:55 AM [facility] Calcium 8.0(L) 8.4 - 10.2 mg/dL 03/15/2023 4:55 AM [facility] Protein Total 4.9(L) 6.0 - 8.3 g/dL 03/15/2023 4:55 AM [facility] Albumin 2.5(L) 3.4 - 5.0 g/dL 03/15/2023 4:55 AM [facility] Bilirubin Total 0.4 0.2 - 1.2 mg/dL 03/15/2023 4:55 AM [facility] Alkaline Phosphatase 93 40 - 150 U/L 03/15/2023 4:55 AM [facility] ALT 34 5 - 55 U/L 03/15/2023 4:55 AM [facility] AST 27 5 - 34 U/L 03/15/2023 4:55 AM [facility] Anion Gap 10 6 - 16 03/15/2023 4:55 AM [facility] BUN/Creatinine Ratio 16 7 - 23 03/15/2023 4:55 AM [facility] Osmolality Calculated 294 275 - 295 mOsm/kg 03/15/2023 4:55 AM [facility] Albumin/Globulin Ratio 1.0(L) 1.1 - 2.3 03/15/2023 4:55 AM [facility] eGFR by CKD-EPI 87(L) >=90 mL/min/1.7 3 m2 03/15/2023 4:55 AM [facility] Blood BLOOD SPECIMEN / Unknown Lab Venipuncture / Unknown 03/15/2023 1:54 AM [employer] 03/15/2023 4:18 AM [employer] Omar John MD LAB - CHEMISTRY YANELY RIVAS Performing Organization Address City/[facility]/ZIP Co de Phone Number [address] [address], [facility] [phone] * PHOSPHORUS BLOOD (03/15/2023 1:54 AM [employer]) Only the most recent of12 resultswithin the time period is included. Phosphorus 2.9 2.9 - 5.1 mg/dL 03/15/2023 4:55 AM [facility] Blood BLOOD SPECIMEN / Unknown Lab Venipuncture / Unknown 03/15/2023 1:54 AM [employer] 03/15/2023 4:18 AM [employer] Omar John MD LAB - CHEMISTRY ORDHanny RIVAS [address] [address], [facility] [phone] * MAGNESIUM BLOOD (03/15/2023 1:54 AM [employer]) Only the most recent of13 resultswithin the time period is included. Magnesium 1.6 1.6 - 2.6 mg/dL 03/15/2023 4:55 AM [facility] Blood BLOOD SPECIMEN / Unknown Lab Venipuncture / Unknown 03/15/2023 1:54 AM [employer] 03/15/2023 4:18 AM [employer] Omar John MD LAB - CHEMISTRY YANELY RIVAS Performing Organization Address [facility]/ZIP Co de Phone Number [address] [address], [place] [phone] * PREPARE (CROSSMATCH) RBC UNIT(S), 4 Units (03/15/2023 1:17 AM [employer]) Only the most recent of3 resultswithin the time period is included. Unit Description N/A [facility] BLOOD BANK LAB Blood Bank BLOOD SPECIMEN / Unknown 03/11/2023 9:27 AM [employer] Monty Myers MD LAB - BLOOD BANK ORDERABLES Performing Organization Address [facility] Co de Phone Number [facility] BLOOD BANK LAB [address] [place] [phone], [place] [phone] * (ABNORMAL) LDH BLOOD (03/14/2023 6:21 PM [employer]) Pathologist [facility] LDH Total 422(H) 125 - 243 Units/L 03/14/2023 7:03 PM [employer] [facility] Blood BLOOD SPECIMEN / Unknown Venipuncture / Unknown 03/14/2023 6:21 PM [employer] 03/14/2023 6:35 PM [employer] Abner Zavaleta MD LAB - CHEMISTRY YANELY RIVAS Performing Organization Address [facility]/ZIP Co de Phone Number [address] [address], [place] [phone] * PROTEIN BODY FLUID ([facility] ONLY) (03/14/2023 10:51 AM [employer]) Pathologist [facility] Protein Fluid 2.4 Not Established For Fluids g/dL 03/14/2023 12:13 PM [employer] [facility] Comment:The analytical perfo rmance of this test has been independently validated by [facility] Core [facility]. A reference range has not been established. Comparison of this result with the concentration in blood, serum or plasma is recommended. Fluid PLEURAL FLUID / Unknown Collection / Unknown 03/14/2023 10:51 AM [employer] 03/14/2023 11:08 AM [employer] Kassidy Vera YAEL-C LAB - BODY FLUID O RDERABLES [address] [address], [place] [phone] * PH BODY FLUID ([facility] ONLY) (03/14/2023 10:51 AM [employer]) pH Fluid 7.50 Not Established for Fluids pH 03/14/2023 11:19 AM [employer] [facility] Body Fluid Type Pleural Fluid 03/14/2023 11:19 AM [employer] [facility] Fluid PLEURAL FLUID / Unknown Collection / Unknown 03/14/2023 10:51 AM [employer] 03/14/2023 11:08 AM [employer] Kassidypraveen Vera YAEL-C LAB - BODY FLUID O RDERABLES Performing Organization Address [facility]/ZIP Co de Phone Number [address] [address], [place] [phone] * LD BODY FLUID ([facility] ONLY) (03/14/2023 10:51 AM [employer]) LD Fluid 233 Not Established For Fluids Units/L 03/14/2023 12:13 PM [employer] [facility] Comment:The analytical perfo rmance of this test has been independently validated by [facility] Core [facility]. A reference range has not been established. Comparison of this result with the concentration in blood, serum or plasma is recommended. Fluid PLEURAL FLUID / Unknown Collection / Unknown 03/14/2023 10:51 AM [employer] 03/14/2023 11:08 AM [employer] Kassidypraveen Jiangmaranda CONLEY-C LAB - BODY FLUID O RDERABLES [address] [address], [facility] [phone] * GLUCOSE BODY FLUID ([facility] ONLY) (03/14/2023 10:51 AM [employer]) Glucose Fluid 128 Not Established For Fluids mg/dL 03/14/2023 12:13 PM [facility] Comment:The analytical perfo rmance of this test has been independently validated by [facility]. A reference range has not been established. Comparison of this result with the concentration in blood, serum or plasma is recommended. Fluid PLEURAL FLUID / Unknown Collection / Unknown 03/14/2023 10:51 AM [employer] 03/14/2023 11:08 AM [employer] Kassidy Vera PA-C LAB - BODY FLUID O RDERABLES [facility] [address] [place] [address], [facility] [phone] * (ABNORMAL) CELL COUNT W DIFFERENTIAL FLUID (03/14/2023 10:51 AM [employer]) Color Fluid Yellow(A) Colorless, Straw 03/14/2023 11:27 AM [facility] Clarity Fluid Cloudy(A) Clear 03/14/2023 11:27 AM [facility] Volume Fluid 2.0 mL 03/14/2023 11:27 AM [facility] WBC Fluid 312 Reference Range Not Established x10e6/L 03/14/2023 11:27 AM [facility] RBC Fluid 6,000 Reference Range Not Established x10e6/L 03/14/2023 11:27 AM [facility] Differential Manual Differential to follow. 03/14/2023 11:27 AM [facility] Fluid PLEURAL FLUID / Unknown Collection / Unknown 03/14/2023 10:51 AM [employer] 03/14/2023 11:08 AM [employer] Narrative [facility] - 03/14/2023 11:27 AM [employer] No reference ranges established for body fluid cell counts. The reference ranges provided are derived from published literature. The test results must be integrated into the clinical context for interpretation. Kassidy Vera PA-C LAB - BODY FLUID O RDERABLES [facility] [address] [place] [address], [place] [phone] * CYTOLOGY NON-PEST LOCATOR PANEL (STL) (03/14/2023 10:51 AM [employer]) Case Report Medical Cytology Report ? Case: [id number] ? Authorizing Provider: ??Kassidy Vera PA-C ?Collected: ? 03/14/2023 10:51 AM ? Ordering Location: ? [facility] 4N ICU ? Received: ?03/14/2023 11:23 AM ? Pathologist: ? Trey Sanchez, DO ? Specimen: ?Pleural Fluid ? 03/16/2023 2:46 PM [employer] [facility] Amended Report Rare atypical vs reactive cells 03/16/2023 2:46 PM [employer] [facility] Specimen Adequacy Adequate cellularity for evaluation. 03/16/2023 2:[address] [facility] Final Diagnosis Pleural fluid, cytology: - Negative for malignancy. 03/16/2023 2:46 PM [facility] PATHOLOGY LAB Gross Description 1 cytospin Pap stained slide and 1 cellblock from a 50 cc corrine , turbid , fresh fluid 03/16/2023 2:46 PM [facility] PATHOLOGY LAB Microscopic Description Review of the cytospin of pleural fluid shows a few reactive mesothelial cells and lymphocytes. The cell block shows a rare mesothelial cell. No malignant cells are seen. 03/16/2023 2:46 PM [facility] PATHOLOGY LAB Pathologist Location at [facility] 03/16/2023 2:46 PM [facility] PATHOLOGY LAB Disclaimer The performance characteristics of all immunohistochemical and indirect immunofluorescence stains (if any) cited in this report were determined by the Histopathology Laboratory of [facility]. Some of these tests rely on the use of analyte-specific reagents and are subject to specific labeling requirements by the US Food and Drug Administration. Such tests were developed by the Histology Laboratory of [facility] and have not been cleared or approved by the FDA. The FDA has determined that such clearance and approval is not necessary. These tests are used for clinical purposes and should not be regarded as investigational or for research. This laboratory is certified under the Clinical Laboratory Improvement Amendments (CLIA) as qualified to perform high complexity clinical laboratory testing. This case has been personally reviewed and interpreted by the attending (teaching) pathologist. 03/16/2023 2:46 PM [facility] PATHOLOGY LAB Embedded Images 03/16/2023 2:46 PM [facility] PATHOLOGY LAB Pathology/Cytolo gy PLEURAL FLUID / Unknown Collection / Unknown 03/14/2023 10:51 AM [employer] 03/14/2023 11:23 AM [employer] Kassidy Vera PA-C LAB - PATHOLOGY/CY TOLOGY ORDERABLES [facility] PATHOLOGY LAB [address] [facility] [place], [place] [id number] [place] [address] * DIFFERENTIAL MANUAL FLUID (03/14/2023 10:51 AM [employer]) Segs % Fluid 17 % 03/14/2023 12:17 PM [facility] Lymphocytes % Fluid 14 % 03/14/2023 12:17 PM [facility] Monocytes % Fluid 43 % 023 12:17 PM [facility] Macrophages % Fluid 22 % 03/14/2023 12:17 PM [facility] Mesothelials % Fluid 4 % 03/14/2023 12:17 PM [facility] Fluid PLEURAL FLUID / Unknown Collection / Unknown 03/14/2023 10:51 AM [employer] 03/14/2023 11:08 AM [employer] Kassidy Vera PA-C LAB - BODY FLUID O RDERABLES [facility] [address] [place] [address], [facility] [phone] * CULTURE FLUID+GRAM STAIN (03/14/2023 10:51 AM [employer]) Culture No growth ASTER 03/17/2023 9:51 PM [employer] [facility] Gram Stain Rare Polymorphonuclear cells 03/17/2023 9:51 PM [employer] [facility] Gram Stain Light Red blood cells 03/17/2023 9:51 PM [employer] [facility] Gram Stain No organisms seen 023 9:51 PM [facility] Other PLEURAL FLUID / Unknown Collection / Unknown 03/14/2023 10:51 AM [employer] 03/14/2023 11:07 AM [employer] Kassidy ELDRIDGEC LAB - MICROBIOLOGY ORDERABLES [facility] [address] [place] [address], [facility] [phone] * CULTURE AFB+SMEAR (03/14/2023 10:51 AM [employer]) Culture No acid-fast bacillus isolated 04/23/2023 8:40 AM [employer] [facility] AFB Smear No acid-fast bacilli seen 04/23/2023 8:40 AM [facility] Microbiology PLEURAL FLUID / Unknown Collection / Unknown 03/14/2023 10:51 AM [employer] 03/14/2023 11:08 AM [employer] Kassidy Vera PA-C LAB - MICROBIOLOGY ORDERABLES Performing Organization Address City/[facility]/ZIP Co de Phone Number [facility] [address] [place] [address], [facility] [phone] * CULTURE ANAEROBE (03/14/2023 10:51 AM [employer]) Culture No anaerobic organisms isolated ASTER 03/19/2023 10:17 AM [employer] [facility] Microbiology PLEURAL FLUID / Unknown Collection / Unknown 03/14/2023 10:51 AM [employer] 03/14/2023 11:08 AM [employer] Kassidy Vera PA-C LAB - MICROBIOLOGY ORDERABLES Performing Organization Address [facility] de Phone Number [facility] [address] [place] [address], [facility] [phone] * HEMATOCRIT FLUID (03/14/2023 10:51 AM [employer]) Hematocrit Fluid <1.0 % 03/14/2023 11:33 AM [employer] [facility] Fluid PLEURAL FLUID / Unknown Collection / Unknown 03/14/2023 10:51 AM [employer] 03/14/2023 11:08 AM [employer] Narrative [facility] - 03/14/2023 11:33 AM [employer] The Reference Range and other method performance specifications have not been established for body fluid Hematocrit. The test result must be integrated into the clinical context for interpretation. Kassidy Vera PA-C LAB - BODY FLUID O RDERABLES Performing Organization Address City/[facility]/ZIP Co de Phone Number [place] [address] [place] [address], [place] [phone] * ECHO LIMITED COLOR FLOW AND DOPPLER (03/13/2023 11:35 AM [employer]) Only the most recent of4 resultswithin the time period is included. BSA 1.7267386 m2 [facility]SM CV FUJ I PACS LV A4C EF 74 46 - 78 % [facility] CV FUJ I PACS LV stroke vol index A4C MOD 36.366 ml/m2 [facility] CV FUJI PACS LV ESV A2C 13.055 10 - 54 mL SSM CV F UJI PACS LV ESV index A2C 8.59 6 - 30 mL/m2 [facility] CV FUJI PACS LV EDV A4C 49.42 mL SSM CV FU JI PACS LV EDV index A4C 32.53 30 - 82 mL/m2 SSM CV FUJI PACS LV Wilson A4C 7.578 cm SSM CV F UJI PACS TR pk christian 300.2 cm/s SSM CV FUJ I PACS TR VTI 104.3 cm SSM CV FUJ I PACS TR pk grad 36 mmHg SSM CV FU JI PACS [id number] 5.866 cm SSM CV FUJ I PACS sPAP 39.0 mmHg SSM CV FUJ I PACS Anatomical Region Laterality Modality Ultrasound Narrative 03/13/2023 1:43 PM [employer] ?Left??Ventricle: Left ventricle size is normal. Normal wall thickness. Hyperdynamic systolic function with a visually estimated EF of 60 - 65%. Normal wall motion. ?Right??Ventricle: Right ventricle is mildly dilated. Low normal systolic function. Pacing/ICD wire present in the right ventricle. ?Right??Atrium: Right atrium is severely dilated. Pacing/ICD wire present in the right atrium. ?Tricuspid??Valve: Severe regurgitation. The pulmonary artery systolic pressure is mildly elevated. Estimated sPAP is 39.0 mmHg. ?IVC/SVC: IVC diameter is less than or equal to 21 mm and decreases greater than 50% during inspiration; therefore the estimated right atrial pressure is normal (~3 mmHg). ?Pericardium: Small circumferential pericardial effusion present. Bilateral pleural effusion. Left Ventricle Left ventricle size is normal. Normal wall thickness. Hyperdynamic systolic function with a visually estimated EF of 60 - 65%. Normal wall motion. Right Ventricle Right ventricle is mildly dilated. Low normal systolic function. Pacing/ICD wire present in the right ventricle. Right Atrium Right atrium is severely dilated. Pacing/ICD wire present in the right atrium. IVC/SVC IVC diameter is less than or equal to 21 mm and decreases greater than 50% during inspiration; therefore the estimated right atrial pressure is normal (~3 mmHg). Mitral Valve Not assessed. Tricuspid Valve Valve structure is normal. No restricted motion. Severe regurgitation. The pulmonary artery systolic pressure is mildly elevated. Estimated sPAP is 39.0 mmHg. No stenosis. Aortic Valve Not assessed. Pulmonic Valve Not assessed. Ascending Aorta Not assessed. Pericardium Small circumferential pericardial effusion present. Bilateral pleural effusion. Study Details Study quality was good. A limited 2D, color Doppler and spectral Doppler echocardiogram was performed. The apical, parasternal and subcostal views were obtained. Patient exhibited sinus rhythm. Monty Myers MD ECHO CUPID * EKG 12-LEAD (03/12/2023 5:08 PM [employer]) Only the most recent of8 resultswithin the time period is included. Ventricular Rate 97 BPM SL MUSE QRS Duration ms 78 ms SL MUSE Q-T Interval ms 384 ms SL MUSE QTC Calculation (Bezet) 487 ms SLH MUSE Calculated R Orlando 49 degrees SLH MUSE Calculated T Orlando 28 degrees [facility]H MUSE Interpretation EKG ATRIAL FIBRILLATION LOW VOLTAGE QRS NONSPECIFIC ST AND T WAVE ABNORMALITY PROLONGED QT ABNORMAL ECG WHEN COMPARED WITH ECG OF 07-MAR-2023 13:40, ATRIAL FIBRILLATION HAS REPLACED ELECTRONIC ATRIAL PACEMAKER NON-SPECIFIC CHANGE IN ST SEGMENT IN ANTEROLATERAL LEADS NONSPECIFIC T WAVE ABNORMALITY NOW EVIDENT IN INFERIOR LEADS NONSPECIFIC T WAVE ABNORMALITY, WORSE IN ANTERIOR LEADS QT HAS LENGTHENED Confirmed by CARMELA TORRES MD ([id number]) on 03/15/2023 8:17:[address] AM [facility] MUSE 03/12/2023 5:08 PM [employer] 03/15/2023 8:17 AM [employer] Monty Myers MD ECG ORDERABL ES [facility] MUSE * CCL LEAD EXTRACTION W REPLACEMENT (03/12/2023 4:37 PM [employer]) Anatomical Region Laterality Modality X-Ray Angiograph y Narrative 03/13/2023 12:09 AM [employer] Successful explantation of right atrial lead under general anesthesia and GUADALUPE guidance. Central line insertion via right femoral vein access. Plan: Leg straight for 4 hours. Keflex 500 mg TID for 5 days. For limited echo tomorrow. If alright discharge patient home. Reason for Procedure Elisha Cruz is a 82 year old female admitted on 03/01/2023 for trauma eval as an OSH transfer. Per chart review, pt has PMH of SSS (with pacemaker placement on 02/28 at [facility]), a fib, asthma, osteoarthritis, and Raynaud's who was transferred to [facility] after presenting to OSH for a syncopal episode and found to have a hemopneumothorax. Chest tube was placed by [facility] trauma team on 03/01 and then removed on 03/04. Course was c/b a fib for which cardiology was consulted. Further workup revealed EKG that was initially concerning for pericarditis, but repeat echo was concerning for worsening pericardial effusion with early tamponade physiology. CT scan from admit here was then reviewed and noted lead perforation. Pt was then transferred to cardiology service as primary on 03/07 as pt will likely need urgent RA lead extraction with anesthesia and CTS. The risks and benefits of the procedure were discussed with the patient who agreed to proceed and signed the consent form. Procedure Details Estimated Blood Loss: 10 mL Procedure Details and Comments: Primary diagnosis:?? Procedures: Explantation of right atrial lead under general anesthesia and GUADALUPE guidance. Central line insertion via right femoral vein access. ? Procedure: ?? Patient was put under general anaesthesia by the anesthesia team. After positioning the patient and prepping and draping sterile almanzar in both groins and the chest,??we started by obtaining a Rt.??femoral vein access using Seldinger technique under vascular ultrasound guidance for obtaining central venous access . We then moved on to extract the device and leads.?The exact location of the device was confirmed by palpation. ??Following this, a 5 cm long oblique incision was made through the skin and subcutaneous tissue, taking care to avoid injury to the leads.Two swabs were taken from the wound.??The previously-implanted device was exposed and carefully freed from surrounding tissue, and then removed from the pocket. ??The atrial lead lead was removed from the header.??The lead's suture sleeve was freed. A stylet was then put in the RA . After that the RA fixation coil was retracted as much as possible, the RA lead was then explanted with a gentle pull. The right atrial port was then capped.The previously-formed pocket was??then??irrigated with antibiotic saline solution as was the rest of the incision.??Hemostasis was readily achieved . The wound was closed in 3 layers using 2-0 Vicryl for the muscular and subcutaneous layer and 3-0 Vicryl for the skin. Tissue glue was used at the end of suturing. Aquacel was finally used to cover the wound. The right femoral sheath was removed . After that manual compression was applied for the Rt groin. Throughout the proecdure GUADALUPE was used to guide the RV lead extraction and no pericardial effusion was noted. The patient tolerated the procedure well and there were no complications. Omar John MD CV ELECTROPHYSIOLOGY ASHLY BROWNING * (ABNORMAL) BLOOD GAS+COOX+LYTES+METAB ARTERIAL POCT (03/12/2023 4:23 PM [facility]) pH Arterial 7.50(H) 7.35 - 7.45 pH 03/12/2023 4:23 PM [facility] pO2 Arterial 204(H) 80 - 100 mmHg 03/12/2023 4:23 PM [facility] pCO2 Arterial 34(L) 35 - 45 mmHg 3 4:23 PM [facility] HCO3 Arterial 26.5 20.0 - 30.0 mmol/L 03/12/2023 4:23 PM [facility] BE Arterial 3.3(H) -2.0 - 2.0 mmol/L 03/12/2023 4:23 PM [facility] Oxyhemoglobin Arterial 96.2 % 03/12/2023 4:23 PM [facility] Dexoyhemoglobin (HHB) % <1.0 % 03/12/2023 4:23 PM [facility] Methemoglobin 1.4 0.0 - 2.0 % 03/12/2023 4:23 PM [facility] Carboxyhemoglobin 1.7 0.0 - 2.0 % 2022 4:23 PM [facility] Comment:Carboxyhemoglobin No rmal Concentration: Non-smokers: 0-2%; Smokers: 0- 9%; Toxic: >20% O2 Content Arterial 12.1 Interpret within clinical context ml/dL 03/12/2023 4:23 PM [facility] Hemoglobin by COOX 8.6(L) 12.0 - 15.6 g/dL 03/12/2023 4:23 PM [facility] O2 Saturation Arterial 99 90 - 100 % 03/12/2023 4:23 PM [facility] Sodium Whole Blood 137 135 - 145 mmol/L 03/12/2023 4:23 PM [facility] Potassium Whole Blood 3.4(L) 3.5 - 5.5 mmol/L 03/12/2023 4:23 PM [facility] Chloride WB 106 78 - 107 mmol/L 03/12/2023 4:23 PM [facility] Calcium Ionized 1.14 mmol/L 4:23 PM [facility] Ionized Calcium pH Adjusted 1.19 1.19 - 1.34 mmol/L 03/12/2023 4:23 PM [facility] Anion Gap (AG) Arterial 5(L) 6 - 16 mmol/L 03/12/2023 4:23 PM [facility] Glucose WB 100 70 - 115 mg/dL 03/12/2023 4:23 PM [facility] Lactic Acid Whole Blood 1.0 <=2.0 mmol/L 03/12/2023 4:23 PM [facility] Blood, arterial ARTERIAL BLOOD SPECIMEN / Unknown 03/12/2023 4:23 PM [employer] 03/12/2023 4:24 PM [employer] Monty Myers MD LAB - POINT OF CARE ORDERABLES [facility] [address] [place] [phone], [facility] [phone] * ARTERIAL LINE PERFORMABLE (03/12/2023 3:57 PM [employer]) Narrative Alphonse Wharton, DO - 03/12/2023 3:57 PM [employer] Alphonse Wharton, DO ? 03/12/2023 ??3:59 PM Arterial Line Placement Procedure Note Patient Location: [place]. Procedure: Arterial Line ([id number]). Procedure Section ?? Indications: continuous blood pressure monitoring and blood sampling needed. Consent: informed consent was obtained for the procedure. Skin Prep: Chloraprep. Orientation: Right. Site: radial. Site Identification: ultrasound guided with sterile sleeve and gel and palpation. Sterile Technique: cap and mask. Gauge: 20. Seldinger Technique Used? ??Yes Number of Attempts: 1. Line Secured with: tape and Tegaderm. Procedure Tolerance: performed while patient under general anesthesia. Events: none. Patient Sedated? ??Yes Local Anesthetic Used? ??No Sedation Types: general anesthesia Staff Section ? Anesthesia Provider: Alphonse Wharton DO Performed the procedure Hossein Clement MD GENERAL ANESTHESIA ORDERABLES * ETT LINE PERFORMABLE (03/12/2023 3:56 PM [employer]) Narrative Alphonse Wharton DO - 03/12/2023 3:56 PM [employer] Alphonse Wharton DO ? 03/12/2023 ??3:57 PM Endotracheal Tube Placement: ? Patient Location: OR. Intubation Event Date/Time: ??03/12/2023 3:20 PM Procedure: intubation ([id number]). Procedure Section: ?? Sedation: under general anesthesia. Indications for Airway Management: ??anesthesia Induction: standard IV Patient Position: ??sniffing and supine Mask Ventilation: easy. Blade Type: Karlie Blade Size: 3 Laryngoscopy View: grade 1 (full cords) Intubation Adjuncts: cricoid pressure and stylet Tube: endotracheal tube Placement: oral Tube type: cuff - inflated Tube Size (MM): 7.5 Depth of Insertion (CM): 23 Measured From: lips Cuff Inflated With: air Number of Attempts: 1. Placement Verified By: direct visualization, bilateral breath sounds, chest auscultation and CO2 monitor Tube secured with: ??adhesive tape. Dentition unchanged? ??Yes Difficult Airway? ??No. Procedure Start Time: 03/12/2023 3:20 PM. Staff Section ? Anesthesia Provider: Alphonse Whatron DO Performed the procedure Hossein Clement MD GENERAL ANESTHESIA ORDERABLES * GLUCOSE - POINT OF CARE (03/12/2023 2:33 PM [employer]) Only the most recent of4 resultswithin the time period is included. [facility] Glucose WB/POC 99 70 - 115 mg/dL 03/12/2023 3:14 PM [employer] [facility] Specimen Type Venous 03/12/2023 3:14 PM [employer] [facility] Blood BLOOD SPECIMEN / Unknown 03/12/2023 2:33 PM [employer] 03/12/2023 3:14 PM [employer] Monty Myers MD LAB - POINT OF CARE ORDERABLES Performing Organization Address City/[facility]/ZIP Co de Phone Number [address] [address], [facility] [phone] * TYPE + SCREEN PANEL (03/11/2023 8:42 AM [employer]) Only the most recent of2 resultswithin the time period is included. [facility] Antibody Screen NEG 10:03 AM [employer] [facility] ABO Rh A POS 03/11/2023 10:03 AM [employer] [facility] Blood Bank BLOOD SPECIMEN / Unknown Lab Venipuncture / Unknown 03/11/2023 8:42 AM [employer] 03/11/2023 9:27 AM [employer] Omar John MD LAB - BLOOD BANK ORD ERABLES Performing Organization Address City/[facility]/ZIP Co de Phone Number [facility] [address] [place] [address], [place] [phone] * (ABNORMAL) TSH REFLEX FREE T4 (03/08/2023 1:54 AM [employer]) Only the most recent of2 resultswithin the time period is included. [facility] TSH 7.028(H) 0.350 - 4.940 uIU/mL 03/08/2023 7:46 AM [employer] [facility] Blood BLOOD SPECIMEN / Unknown Lab Venipuncture / Unknown 03/08/2023 1:54 AM [employer] 03/08/2023 3:14 AM [employer] Omar John MD LAB - CHEMISTRY YANELY RIVAS Performing Organization Address City/[facility]/ZIP Co de Phone Number [address] [address], [place] [phone] * T4 FREE (03/08/2023 1:54 AM [employer]) Only the most recent of4 resultswithin the time period is included. T4 Free 0.7 0.7 - 1.5 ng/dL 03/08/2023 8:19 AM [employer] [facility] Blood BLOOD SPECIMEN / Unknown Lab Venipuncture / Unknown 03/08/2023 1:54 AM [employer] 03/08/2023 3:14 AM [employer] Omar John MD LAB - CHEMISTRY YANELY RIVAS Performing Organization Address [facility] Co de Phone Number [address] [address], [place] [phone] * (ABNORMAL) CORTISOL BLOOD AM (03/07/2023 6:30 AM [employer]) Cortisol AM 25.9(H) 3.7 - 19.4 ug/dL 03/07/2023 7:25 AM [employer] [facility] Blood BLOOD SPECIMEN / Unknown Lab Venipuncture / Unknown 03/07/2023 6:30 AM [employer] 03/07/2023 6:41 AM [employer] Narrative [facility] - 03/07/2023 7:25 AM [employer] Normal cortisol levels are generally highest in the morning hours and lowest from late evening through the wellness nurse rn hours (8 PM to 4 AM). ??The PM measurements of cortisol run approximately one-half to one-third of the AM values. Omar John MD LAB - CHEMISTRY YANELY RIVAS Performing Organization Address City/[facility]/ZIP Co de Phone Number [address] [address], [place] [phone] * US ABDOMEN LIMITED (03/05/2023 1:33 PM [employer]) Anatomical Region Laterality Modality Abdomen Ultrasound 03/05/2023 2:06 PM [employer] Impressions 03/05/2023 3:22 PM [employer] IMPRESSION: 1.No discrete hepatic lesion or intrahepatic biliary ductal dilatation. 2.Redemonstrated pericholecystic fluid likely represents previously seen hemorrhage within the gallbladder fossa. 3.Otherwise no evidence of cholelithiasis or acute cholecystitis. 4.Partial visualization of a left-sided pleural effusion. > Dictated by Jaydon Cox MD (president and chief executive officer). > Dictated by Jaydon Cox (Machine Technician) 03/05/2023 2:06 PM ILeonel have personally reviewed and interpreted this examination/study. > Interpreting Provider: Leonel Birch on 03/05/2023 3:22 PM Narrative 03/05/2023 3:22 PM [employer] PROCEDURE: ??US ABDOMEN LIMITED, DATE/TIME OF EXAM: ??03/05/2023 1:44 PM, LOCATION ??[facility] INDICATION: R79.89: LFT elevation ADDITIONAL CLINICAL INFORMATION: Ordering Provider Reason For Exam: ??Liver eval w/ elevated LFTs COMPARISON: CT chest abdomen and pelvis with contrast 03/01/2023. FINDINGS: The liver is normal in echotexture and echogenicity with smooth surface contour. No discrete hepatic mass or intrahepatic biliary dilatation is seen. A simple cyst measuring up to 1.4 cm is seen within the left hemiliver. Color Doppler evaluation demonstrates patency of the hepatic and portal veins. No gallstones are visualized. Pericholecystic fluid is present. The gallbladder wall is normal in thickness, measuring 3 mm. Sonographic Wang's sign is negative. The common bile duct is nondilated, measuring 5 mm. The right kidney measures 9.3 x 4.6 x 4.9 cm. Limited views of the right kidney reveal no evidence of nephrolithiasis or hydronephrosis. The spleen measures 8.7 cm in length. The visible pancreas is normal in echogenicity. No ascites is present. Partial visualization of a left-sided pleural effusion. Procedure Note Leonel Birch MD - 03/05/2023 PROCEDURE: US ABDOMEN LIMITED, DATE/TIME OF EXAM: 03/05/2023 1:44 PM, LOCATION [facility] INDICATION: R79.89: LFT elevation ADDITIONAL CLINICAL INFORMATION: Ordering Provider Reason For Exam: Liver eval w/ elevated LFTs COMPARISON: CT chest abdomen and pelvis with contrast 03/01/2023. FINDINGS: The liver is normal in echotexture and echogenicity with smooth surface contour. No discrete hepatic mass or intrahepatic biliary dilatation is seen. A simple cyst measuring up to 1.4 cm is seen within the left hemiliver. Color Doppler evaluation demonstrates patency of the hepaticand portal veins. No gallstones are visualized. Pericholecystic fluid is present. The gallbladder wall is normal in thickness, measuring 3 mm. Sonographic Wang's sign is negative. The common bile duct is nondilated, measuring5 mm. The right kidney measures 9.3 x 4.6 x 4.9 cm. Limited views of the right kidney reveal no evidence of nephrolithiasis or hydronephrosis. Thespleen measures 8.7 cm in length. The visible pancreas is normal inechogenicity. No ascites is present. Partial visualization of a left-sided pleural effusion. IMPRESSION: 1.No discrete hepatic lesion or intrahepatic biliary ductal dilatation. 2.Redemonstrated pericholecystic fluid likely represents previously seen hemorrhage within the gallbladder fossa. 3.Otherwise no evidence of cholelithiasis or acute cholecystitis. 4.Partial visualization of a left-sided pleural effusion. > Dictated by Jaydon Cox MD (president and chief executive officer). > Dictated by Jaydon Cox (Machine Technician) 03/05/2023 2:06 PM ILeonel have personally reviewed and interpreted this examination/study. > Interpreting Provider: Leonel Birch on 03/05/2023 3:22 PM Omar John MD US ORDERABLES * HEPATITIS C AB SCREEN RFLX NAAT QUANT (03/05/2023 11:44 AM [employer]) Hepatitis C Antibody Non-react john Non-reac tive 03/05/2023 12:57 PM [employer] [facility] Comment:Hepatitis C Antibody screen indicates no serologic evidence of past or current infection with Hepatitis C Virus. Patients with unexplained liver disease who are immunocompromised or suspected of having acute Hepatitis C infection may benefit from Nucleic Acid Test (SANJANA) for Hepatitis C Viral RNA to confirm Hepatitis C status. Blood BLOOD SPECIMEN / Unknown Lab Venipuncture / Unknown 03/05/2023 11:44 AM [employer] 03/05/2023 11:47 AM [employer] Omar John MD LAB - CHEMISTRY YANELY RIVAS Performing Organization Address [facility] Co de Phone Number [address] [address], [facility] [phone] * HEPATITIS B PANEL (03/05/2023 11:44 AM [employer]) [facility] Hepatitis B Virus Surface Antibody Non-reacti ve Non-react john 03/05/2023 12:57 PM [employer] [facility] Comment: < 8 mIU/mL Hepatitis B surface Antibody (HBsAb). Nonreactive for HBsAb - individual is considered not immune to Hepatitis B Virus infection. Hepatitis B Virus Surface Antigen Non-reacti ve Non-react john 03/05/2023 12:57 PM [employer] [facility] Hepatitis B Core Virus Antibody IgM Non-reacti ve Non-react john 03/05/2023 12:57 PM [employer] [facility] Blood BLOOD SPECIMEN / Unknown Lab Venipuncture / Unknown 03/05/2023 11:44 AM [employer] 03/05/2023 11:47 AM [employer] Omar John MD LAB - CHEMISTRY YANELY RIVAS Performing Organization Address [facility] Co de Phone Number [address] [address], [facility] [phone] * (ABNORMAL) CBC W/O DIFFERENTIAL (03/05/2023 2:56 AM [employer]) Only the most recent of5 resultswithin the time period is included. [facility] WBC 12.4(H) 3.5 - 10.5 10? 3 /uL 03/05/2023 3:43 AM [employer] [facility] RBC 2.44(L) 3.80 - 5.20 10? 6 /uL 03/05/2023 3:43 AM [facility] Hemoglobin 7.3(L) 12.0 - 15.6 g/dL 03/05/2023 3:43 AM [facility] Hematocrit 22.4(L) 35.0 - 45.0 % 03/05/2023 3:43 AM [facility] MCV 91.8 80.7 - 98.3 fL 03/05/2023 3:43 AM [facility] MCH 29.9 26.7 - 34.0 pg 03/05/2023 3:43 AM [facility] MCHC 32.6 30.8 - 35.9 g/dL 03/05/2023 3:43 AM [facility] RDW-SD 47.1 36.0 - 50.0 fL 03/05/2023 3:43 AM [facility] RDW-CV 14.3 11.2 - 14.8 % 03/05/2023 3:43 AM [facility] Platelet Count 187 150 - 400 10? 3 /uL 03/05/2023 3:43 AM [facility] MPV 11.3 9.4 - 12.9 fL 03/05/2023 3:43 AM [facility] nRBC Absolute 0.02(H) 0 10? 3 /uL 03/05/2023 3:43 AM [facility] nRBC Auto 0.2(H) 0 /100 WBC 03/05/2023 3:43 AM [facility] Blood BLOOD SPECIMEN / Unknown Lab Venipuncture / Unknown 03/05/2023 2:56 AM [employer] 03/05/2023 3:16 AM [employer] Charlie Barnes MD LAB - HEMATOLOGY OR DERABLES [facility] [address] [place] [address], [facility] [phone] * (ABNORMAL) RENAL FUNCTION PANEL (03/05/2023 2:56 AM [employer]) BUN 25 7 - 26 mg/dL 03/05/2023 3:47 AM [facility] Creatinine 0.91 0.56 - 0.96 mg/dL 03/05/2023 3:47 AM [facility] Sodium 137 136 - 145 mmol/L 03/05/2023 3:47 AM [facility] Potassium 4.1 3.5 - 4.5 mmol/L 03/05/2023 3:47 AM [facility] Chloride 104 98 - 107 mmol/L 03/05/2023 3:47 AM [facility] CO2 22 22 - 29 mmol/L 03/05/2023 3:47 AM [facility] Glucose 103 70 - 115 mg/dL 03/05/2023 3:47 AM [facility] Albumin 2.7(L) 3.4 - 5.0 g/dL 03/05/2023 3:47 AM [facility] Calcium 8.2(L) 8.4 - 10.2 mg/dL 03/05/2023 3:47 AM [facility] Phosphorus 2.9 2.9 - 5.1 mg/dL 03/05/2023 3:47 AM [facility] Anion Gap 11 6 - 16 03/05/2023 3:47 AM [facility] BUN/Creatinine Ratio 27(H) 7 - 23 03/05/2023 3:47 AM [facility] Osmolality Calculated 289 275 - 295 mOsm/kg 03/05/2023 3:47 AM [facility] eGFR by CKD-EPI 63(L) >=90 mL/min/1.7 3 m2 03/05/2023 3:47 AM [facility] Blood BLOOD SPECIMEN / Unknown Lab Venipuncture / Unknown 03/05/2023 2:56 AM [employer] 03/05/2023 3:16 AM [facility] Barrington Jensen MD LAB - CHEMISTRY ORD ERABLES [facility] [address] [place] [address], [facility] [phone] * (ABNORMAL) HEPATIC FUNCTION PANEL (03/05/2023 2:56 AM [facility]) Protein Total 5.4(L) 6.0 - 8.3 g/dL 023 8:22 AM [facility] Albumin 2.7(L) 3.4 - 5.0 g/dL 03/05/2023 8:22 AM [facility] Bilirubin Total 0.7 0.2 - 1.2 mg/dL 02/08 8:22 AM [facility] Bilirubin Conjugated 0.3 0.1 - 0.5 mg/dL 03/05/2023 8:22 AM [facility] Bilirubin Unconjugated 0.4 Unconjugated Bilirubin is a calculated value: Reference ranges have not been established. mg/dL 03/05/2023 8:22 AM [facility] Alkaline Phosphatase 110 40 - 150 U/L 03/05/2023 8:22 AM [facility] ALT 464(H) 5 - 55 U/L 03/05/2023 8:22 AM [facility] AST 313(H) 5 - 34 U/L 03/05/2023 8:22 AM [facility] Albumin/Globulin Ratio 1.0(L) 1.1 - 2.3 03/05/2023 8:22 AM [facility] Blood BLOOD SPECIMEN / Unknown Lab Venipuncture / Unknown 03/05/2023 2:56 AM [employer] 03/05/2023 3:16 AM [employer] Barrington Jensen MD LAB - CHEMISTRY ORD ERABLES [facility] [address] [place] [address], [facility] [phone] * XR CHEST 1VW (03/04/2023 3:40 PM [employer]) Anatomical Region Laterality Modality Chest Radiographic Fabi ging 03/05/2023 1:13 PM [employer] Narrative 03/06/2023 11:56 AM [employer] PROCEDURE: ??XR CHEST 1VW PORTABLE, XR CHEST 1VW, DATE/TIME OF EXAM: 03/05/2023 12:08 PM, LOCATION ??[facility] INDICATION: J94.2: Hemopneumothorax on right ADDITIONAL CLINICAL INFORMATION: Ordering Provider Reason For Exam: ??Post-pull chest tube COMPARISON: X-ray chest 03/03/2023. TECHNIQUE: AP portable semiupright view of the chest. FINDINGS/IMPRESSION: X-ray chest 03/04/2023 3:00 PM: *Right pleural pigtail catheter has been removed. *Left-sided cardiac pacemaker device with leads terminating at the right atrium and right ventricle. Subsegmental atelectasis at lung bases left greater than right. Pulmonary vascular lung markings appeared within normal limits at this time. Mild persistent elevation of the right hemidiaphragm appears similar. There is no definite pleural effusion or pneumothorax. The cardiac silhouette appears within normal limits for size. There is atherosclerotic calcification of the aorta. The visible bony thorax is intact. Report dictated by Aamir Morris MD, MD (president and chief executive officer). Morro Lezama MD have personally reviewed and interpreted this examination/study. > Interpreting Provider: Morro Obregon MD on 03/06/2023 11:56 AM Procedure Note Morro Obregon MD - 03/06/2023 PROCEDURE: XR CHEST 1VW PORTABLE, XR CHEST 1VW, DATE/TIME OF EXAM: 03/05/2023 12:08 PM, LOCATION [facility] INDICATION: J94.2: Hemopneumothorax on right ADDITIONAL CLINICAL INFORMATION: Ordering Provider Reason For Exam: Post-pull chest tube COMPARISON: X-ray chest 03/03/2023. TECHNIQUE: AP portable semiupright view of the chest. FINDINGS/IMPRESSION: X-ray chest 03/04/2023 3:00 PM: *Right pleural pigtail catheter has been removed. *Left-sided cardiac pacemaker device with leads terminating at the right atrium and right ventricle. Subsegmental atelectasis at lung bases left greater than right.Pulmonary vascular lung markings appeared within normal limits at this time. Mild persistent elevation of the right hemidiaphragm appears similar. Thereis no definite pleural effusion or pneumothorax. The cardiac silhouette appears within normal limits for size. There is atherosclerotic calcification of the aorta. The visible bony thorax is intact. Report dictated by Aamir Morris MD, MD (president and chief executive officer). Morro Lezama MD have personally reviewed and interpreted this examination/study. > Interpreting Provider: Morro Obregon MD on 03/06/2023 11:56 AM Jerson So MD DIAGNOSTIC IMAGING O RDERABLES * (ABNORMAL) BASIC METABOLIC PANEL (CALCIUM TOTAL) (03/04/2023 2:45 AM [employer]) Only the most recent of4 resultswithin the time period is included. BUN 22 7 - 26 mg/dL 03/04/2023 3:54 AM [facility] Creatinine 0.91 0.56 - 0.96 mg/dL 03/04/2023 3:54 AM [facility] Sodium 136 136 - 145 mmol/L 03/04/2023 3:54 AM [facility] Potassium 3.8 3.5 - 4.5 mmol/L 03/04/2023 3:54 AM [facility] Chloride 104 98 - 107 mmol/L 03/04/2023 3:54 AM [facility] CO2 24 22 - 29 mmol/L 03/04/2023 3:54 AM [facility] Glucose 109 70 - 115 mg/dL 03/04/2023 3:54 AM [facility] Calcium 8.7 8.4 - 10.2 mg/dL 03/04/2023 3:54 AM [facility] Anion Gap 8 6 - 16 03/04/2023 3:54 AM [facility] BUN/Creatinine Ratio 24(H) 7 - 23 03/04/2023 3:54 AM [facility] Osmolality Calculated 286 275 - 295 mOsm/kg 03/04/2023 3:54 AM [facility] eGFR by CKD-EPI 63(L) >=90 mL/min/1.7 3 m2 03/04/2023 3:54 AM [facility] Blood BLOOD SPECIMEN / Unknown Lab Venipuncture / Unknown 03/04/2023 2:45 AM [employer] 03/04/2023 3:27 AM [employer] Charlie Barnes MD LAB - CHEMISTRY ORD ERABLES [facility] [address] [place] [address], [facility] [phone] * (ABNORMAL) URINALYSIS W/MICROSCOPIC NO CULTURE (03/01/2023 9:15 PM [employer]) Color UA Yellow Straw, Yellow 03/01/2023 11:14 PM [facility] Clarity UA Clear Clear 03/01/2023 11:14 PM [facility] Specific [place]et UA 1.045(H) 1.005 - 1.030 03/01/2023 11:14 PM [facility] pH UA 5.0 5.0 - 8.0 pH 03/01/2023 11:14 PM [facility] Protein UA 1+(A) Negative 03/01/2023 11:14 PM [facility] Glucose UA Negative Negative 03/01/2023 11:14 PM [facility] Ketone UA Negative Negative 03/01/2023 11:14 PM [facility] Bilirubin UA Negative Negative 03/01/2023 11:14 PM [facility] Blood UA Negative Negative 03/01/2023 11:14 PM [facility] Nitrite UA Negative Negative 03/01/2023 11:14 PM [facility] Leukocyte Esterase Negative Negative 03/01/2023 11:14 PM [facility] Urobilinogen UA Negative Negative mg/dL 03/01/2023 11:14 PM [facility] RBC UA 3-5 None Seen, 0-2, 3-5 /HPF 03/01/2023 11:14 PM [facility] WBC UA None Seen None Seen, 0-5 /HPF 03/01/2023 11:14 PM [facility] Bacteria UA Trace(A) None /HPF 03/01/2023 11:14 PM [facility] Squamous Epithelial Cells UA 0-2 None Seen, 0-2, 3-5 /HPF 03/01/2023 11:14 PM [facility] Mucus UA 1+ /LPF 03/01/2023 11:14 PM [facility] Urine URINE SPECIMEN OBTAINED BY CLEAN CATCH PROCEDURE / Unknown Collection / Unknown 03/01/2023 9:15 PM [employer] 03/01/2023 10:30 PM [facility] - 03/01/2023 11:14 PM [employer] Charlie Barnes MD LAB - URINALYSIS OR DERABLES [facility] [address] [place] [address], [facility] [phone] * BLOOD TYPE VERIFICATION (03/01/2023 7:08 PM [employer]) ABO Rh A POS 03/01/2023 7:5 4 PM [employer] [facility] Blood Bank BLOOD SPECIMEN / Unknown Lab Venipuncture / Unknown 03/01/2023 7:08 PM [employer] 03/01/2023 7:27 PM [employer] Charlie Barnes MD LAB - BLOOD BANK OR DERABLES Performing Organization Address City/[facility]/ZIP Co de Phone Number [facility] [address] [place] [address], [facility] [phone] * XR CHEST 2VW (03/01/2023 4:02 PM [employer]) Only the most recent of2 resultswithin the time period is included. Anatomical Region Laterality Modality Chest Radiographic Fabi ging 03/01/2023 3:59 PM [employer] Narrative 03/02/2023 10:08 AM [employer] PROCEDURE: ??XR CHEST 2VW, DATE/TIME OF EXAM: ??03/01/2023 4:02 PM, LOCATION [facility] INDICATION: [id number]: Trauma Ordering Provider Reason For Exam: ??right chest pigtail placement COMPARISON: Same day CXR on 03/01/2023 at 12:[address] of chest at 2:13 PM FINDINGS/IMPRESSION: Tubes, lines, and devices: *Interval placement of right-sided thoracostomy pigtail catheter, with the tip in right basilar hemithorax. *Cardiac pacemaker generator overlies left shoulder, with left subclavian accessed. The leads terminating in right atrium and right ventricle. Right-sided apical pneumothorax with extension to lateral and basilar hemithorax is slightly increased since last imaging. No pneumothorax is identified on left side. Small atelectasis is noted in right lung base. The left lung is clear. No large pleural effusion is present. The cardiomediastinal silhouette is unremarkable, other than atherosclerotic thoracic aorta. The visible bony thorax is intact. Report dictated by Paul Arango MD (president and chief executive officer). Deuce Lezama DO have personally reviewed and interpreted this examination/study. > Interpreting Provider: Deuce Ramirez DO on 03/02/2023 10:08 AM Procedure Note Deuce Ramirez DO - 03/02/2023 PROCEDURE: XR CHEST 2VW, DATE/TIME OF EXAM: 03/01/2023 4:02 PM, LOCATION [facility] INDICATION: [id number]: Trauma Ordering Provider Reason For Exam: right chest pigtail placement COMPARISON: Same day CXR on 03/01/2023 at 12:[address] of chest at2:13 PM FINDINGS/IMPRESSION: Tubes, lines, and devices: *Interval placement of right-sided thoracostomy pigtail catheter, withthe tip in right basilar hemithorax. *Cardiac pacemaker generator overlies left shoulder, with leftsubclavian accessed. The leads terminating in right atrium and right ventricle. Right-sided apical pneumothorax with extension to lateral and basilar hemithorax is slightly increased since last imaging. No pneumothorax is identified on left side. Small atelectasis is noted in right lung base. The left lung is clear.No large pleural effusion is present. The cardiomediastinal silhouette is unremarkable, other than atherosclerotic thoracic aorta. The visible bony thorax is intact. Report dictated by Paul Arango MD (president and chief executive officer). Deuce Lezama DO have personally reviewed and interpreted this examination/study. > Interpreting Provider: Deuce Ramirez DO on 03/02/2023 10:08 AM Charlie Barnes MD DIAGNOSTIC IMAGING ORDERABLES * (ABNORMAL) TROPONIN-I HIGH SENSITIVE (03/01/2023 3:22 PM [employer]) Only the most recent of2 resultswithin the time period is included. Troponin I High Sensitive 19(H) <=14 ng/L 03/01/2023 4:00 PM [employer] [facility] Blood BLOOD SPECIMEN / Unknown Venipuncture / Unknown 03/01/2023 3:22 PM [employer] 03/01/2023 3:26 PM [employer] Charlie Barnes MD LAB - CHEMISTRY ORD ERABLES [facility] [address] [place] [address], [facility] [phone] * CT CHEST ABDOMEN PELVIS W CONT - Abdomen-pelvis trauma, blunt or penetrating (03/01/2023 2:31 PM [employer]) Anatomical Region Laterality Modality Chest, Abdomen, Pelvis Computed Tomography 03/01/2023 2:24 PM [employer] Impressions 03/01/2023 3:50 PM [employer] Impression: 1.Moderate right pneumothorax. Moderate right pleural effusion or hemothorax. No left pneumothorax. Trace left pleural effusion. 2.Pneumomediastinum. 3.Small pericardial effusion. 4.Small to moderate volume of hemorrhage within the gallbladder fossa and along the inferior aspect of the right hepatic lobe extending into the right paracolic gutter to the pelvis. 5.Small amount of fluid or hemorrhage adjacent to the inferior aspect of the spleen. 6.Periportal edema. These findings were discussed in detail with the patient's care provider, Dr. Echeverria by Dr. Arcadio Gutierrez via telephone at 1542 on 03/01/2023 with readback comprehension and verification. Report drafted by Arcadio Gutierrez (resident) I, Yobany Ji MD have personally reviewed and interpreted this examination/study. > Interpreting Provider: Yobany Ji MD on 03/01/2023 3:50 PM Narrative 03/01/2023 3:50 PM [employer] Procedure Information DATE: 03/01/2023 2:34 PM EXAMINATION: Computed tomography (CT) of the chest, abdomen, and pelvis with contrast TECHNIQUE: CT of the chest, abdomen, and pelvis was performed after the uneventful administration of 100 mL of Isovue 370 intravenous contrast according to standard protocol. Clinical Information HISTORY: Trauma COMPARISON: None. Findings Chest: Lines/Tubes: None. Lower neck and axillae: Normal. Mediastinum and Cynthia: Small amount of pneumomediastinum is present. Heart and Pericardium: Trace pericardial effusion. Pulmonary Parenchyma and Airways and pleural space: Moderate right pleural effusion or hemothorax. Moderate right pneumothorax. Trace left pleural effusion. No left pneumothorax. Dependent atelectasis, right greater than left. Soft tissue gas left chest wall. Abdomen/pelvis: Hepatobiliary: Several hepatic cysts are seen. There is a periportal edema. There are a few clefts in the liver without definite laceration. There is high attenuation material within the gallbladder dependently which may represent vicarious excretion of contrast and/or biliary sludge. There is high attenuation material compatible with hemorrhage around the gallbladder and extending along the inferior aspect of the right hepatic lobe into the right paracolic gutter. Pancreas: Normal. Spleen: There is a small amount of fluid along the inferior aspect of the spleen which is higher in attenuation and simple fluid and could represent hemorrhage or complex fluid. Kidneys: There is cortical scarring of left kidney Adrenals: Mild left adrenal nodularity. Peritoneum: No free air. Small amount of hemorrhagic free fluid in the pelvis. Gastrointestinal: The stomach and visualized loops of bowel are unremarkable. Mesentery: Normal. Pelvic Structures: Normal. Vasculature: Scattered atherosclerotic vasculature changes. Bones: Moderate to severe degenerative changes in the spine. Grade 1 anterolisthesis at L4 on L5 and L5-S1. Soft tissues: Soft tissue emphysema in the left anterior chest wall adjacent to the cardiac pacemaker, may be seen with recent placement. Clinical correlation is recommended. Procedure Note Yobany Ji MD - 03/01/2023 Procedure Information DATE: 03/01/2023 2:34 PM EXAMINATION: Computed tomography (CT) of the chest, abdomen, and pelvis with contrast TECHNIQUE: CT of the chest, abdomen, and pelvis was performed after the uneventful administration of 100 mL of Isovue 370 intravenous contrast according to standard protocol. Clinical Information HISTORY: Trauma COMPARISON: None. Findings Chest: Lines/Tubes: None. Lower neck and axillae: Normal. Mediastinum and Cynthia: Small amount of pneumomediastinum is present. Heart and Pericardium: Trace pericardial effusion. Pulmonary Parenchyma and Airways and pleural space: Moderate right pleural effusion or hemothorax. Moderate rightpneumothorax. Trace left pleural effusion. No left pneumothorax. Dependentatelectasis, right greater than left. Soft tissue gas left chest wall. Abdomen/pelvis: Hepatobiliary: Several hepatic cysts are seen. There is a periportal edema. There are a few clefts in the liver without definite laceration. There is high attenuation material within the gallbladder dependently which mayrepresent vicarious excretion of contrast and/or biliary sludge. There is high attenuation material compatible with hemorrhage around the gallbladder and extending along the inferior aspect of the right hepatic lobe into the right paracolic gutter. Pancreas: Normal. Spleen: There is a small amount of fluid along the inferior aspect of the spleen which is higher in attenuation and simple fluid and could represent hemorrhage or complex fluid. Kidneys: There is cortical scarring of left kidney Adrenals: Mild left adrenal nodularity. Peritoneum: No free air. Small amount of hemorrhagic free fluid in the pelvis. Gastrointestinal: The stomach and visualized loops of bowel are unremarkable. Mesentery: Normal. Pelvic Structures: Normal. Vasculature: Scattered atherosclerotic vasculature changes. Bones: Moderate to severe degenerative changes in the spine. Grade 1 anterolisthesis at L4 on L5 and L5-S1. Soft tissues: Soft tissue emphysema in the left anterior chest wall adjacent to the cardiac pacemaker, may be seen with recent placement. Clinicalcorrelation is recommended. Impression: 1.Moderate right pneumothorax. Moderate right pleural effusion or hemothorax. No left pneumothorax. Trace left pleural effusion. 2.Pneumomediastinum. 3.Small pericardial effusion. 4.Small to moderate volume of hemorrhage within the gallbladder fossaand along the inferior aspect of the right hepatic lobe extending into the right paracolic gutter to the pelvis. 5.Small amount of fluid or hemorrhage adjacent to the inferior aspect of the spleen. 6.Periportal edema. These findings were discussed in detail with the patient's careprovider, Dr. Echeverria by Dr. Arcadio Gutierrez via telephone at 1542 on 03/01/2023 with readback comprehension and verification. Report drafted by Arcadio Gutierrez (resident) I, Yobany Ji MD have personally reviewed and interpreted this examination/study. > Interpreting Provider: Yobany Ji MD on 03/01/2023 3:50 PM Charlie [address] MD CT ORDERABLES * CT LUMBAR SPINE WO CONTRAST - T/L-spine trauma, Spine fracture (03/01/2023 2:31 PM [employer]) Anatomical Region Laterality Modality Spine Computed Tomogra phy 03/01/2023 2:52 PM [employer] Impressions 03/01/2023 7:17 PM [employer] IMPRESSION: 1.No acute intracranial hemorrhage, midline shift, or significant mass effect. 2.No evidence of acute fracture in the cervical, thoracic, or lumbar spine. 3.Please refer to the separately dictated report of CT scan of the chest, abdomen and pelvis for intrathoracic and intra-abdominal findings. This study was dictated by president and chief executive officer Paul Arango MD and reviewed and edited by the attending. IJacobo MD have personally reviewed and interpreted this examination/study. > Interpreting Provider: Jacobo Fermin MD on 03/01/2023 7:17 PM Narrative 03/01/2023 7:17 PM [employer] PROCEDURE: ??CT HEAD WO CONTRAST, CT LUMBAR SPINE WO CONTRAST, CT THORACIC SPINE WO CONTRAST, CT CERVICAL SPINE WO CONTRAST, DATE/TIME OF EXAM: 03/01/2023 2:34 PM, LOCATION ??[facility] INDICATION: Trauma ADDITIONAL CLINICAL INFORMATION: Ordering Provider Reason For Exam: ??Trauma. Technologist Note: ??None. Additional: ??None. EXAMINATION: 1.Computed tomography (CT) of the head without contrast 2.CT of the cervical spine without contrast 3.CT of the thoracic spine without contrast 4.CT of the lumbar spine without contrast TECHNIQUE: CT of the head and cervical spine was performed without contrast according to standard protocol. Reformatted axial, sagittal, and coronal images of the thoracic and lumbar spine were obtained by the technologist from a concurrently performed body CT and sent to the workstation for review. CT dose reduction technique was used, including Automated Exposure Control. COMPARISON: No prior study is available for comparison at the time of this dictation. FINDINGS: Head: No acute intra- or extra-axial fluid collections are identified. There is mild to moderate cerebral volume loss with associated sulcal prominence and ex-vacuo ventricular dilatation. Ventricular prominence is disproportionate to sulcal dilation which is a nonspecific finding and could be related to central volume loss. A superimposed element of normal pressure hydrocephalus cannot be totally excluded and should be correlated clinically. The basilar cisterns are patent. No mass effect or midline shift is seen. The marinelli-white matter differentiation is normal. Periventricular white matter hypoattenuation is indicative of chronic small vessel ischemic disease. There is vascular calcification of the carotid siphons. No acute calvarial fracture is identified. Other than bilateral cataract extractions, the orbits appear normal. There is mild paranasal sinus disease. The mastoid air cells are grossly clear. No soft tissue abnormality is identified. Cervical spine: There is levocurvature of cervical spine, with focal kyphosis centered at C3-C6 levels. There is grade 1 anterolisthesis of C3 over C4 and C4 over C5 and grade 1 retrolisthesis of C6 over C7 vertebral bodies. Vertebral bodies are normal in height without evidence of acute fracture. Other than advanced atlantoaxial joint osteoarthritis, the craniocervical junction appears normal. There is advanced degenerative disc disease. Mild spinal canal stenosis at multiple levels, for reference at C4-C5 and moderate at C5-C6 and C6-C7 levels. There are varying degrees of advanced facet osteoarthritis. There are varying degrees of advanced uncovertebral joint osteoarthritis with the same degree of neural foraminal stenosis at these levels. [id number] apical right pneumothorax. Biapical scarring. Thoracic spine: There is minimal retrolisthesis of T12 over L1 vertebral body. Minimal anterolisthesis of T2 over T3 vertebral bodies also suspected. The vertebral alignment is otherwise unremarkable. Vertebral bodies are normal in height without evidence of acute fracture. There is advanced degenerative disc disease. No significant central canal stenosis is seen. 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 Mild asymmetric widening of right T12-L1 facet joint is likely secondary to chronic ligamentous injury. No significant neural foraminal stenosis is seen. Apical pneumothorax is noted in right side. There is moderate volume pleural effusion on right side with loculated interlobar extension within the main fissure. Small dependent atelectasis is also present in both lungs, right greater than left. Small pericardial effusion. Trace left pleural effusion. Lumbar spine: Moderate dextrocurvature of lumbosacral junction. Minimal dextrocurvature of the lower lumbar spine. 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 Vertebral bodies are normal in height without evidence of acute fracture. There is advanced degenerative disc disease. There is central canal stenosis, mild at L3-L4 secondary to posterior disc bulge and moderate at L4-5 level, secondary to anterolisthesis. 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 Neural foraminal stenosis is present, moderate at left L3-L4 and severe at bilateral L5-S1 levels. No soft tissue abnormality is identified. Procedure Note Jacobo Fermin MD - 03/01/2023 PROCEDURE: CT HEAD WO CONTRAST, CT LUMBAR SPINE WO CONTRAST, CTTHORACIC SPINE WO CONTRAST, CT CERVICAL SPINE WO CONTRAST, DATE/TIME OF EXAM: 03/01/2023 2:34 PM, LOCATION [facility] INDICATION: Trauma ADDITIONAL CLINICAL INFORMATION: Ordering Provider Reason For Exam: Trauma. Technologist Note: None. Additional: None. EXAMINATION: 1.Computed tomography (CT) of the head without contrast 2.CT of the cervical spine without contrast 3.CT of the thoracic spine without contrast 4.CT of the lumbar spine without contrast TECHNIQUE: CT of the head and cervical spine was performed withoutcontrast according to standard protocol. Reformatted axial, sagittal, and coronal images of the thoracic and lumbar spine were obtained by thetechnologist from a concurrently performed body CT and sent to the workstation for review. CT dose reduction technique was used, including AutomatedExposure Control. COMPARISON: No prior study is available for comparison at the time ofthis dictation. FINDINGS: Head: No acute intra- or extra-axial fluid collections are identified. Thereis mild to moderate cerebral volume loss with associated sulcal prominenceand ex-vacuo ventricular dilatation. Ventricular prominence isdisproportionate to sulcal dilation which is a nonspecific finding and could be relatedto central volume loss. A superimposed element of normal pressure hydrocephalus cannot be totally excluded and should be correlated clinically. The basilar cisterns are patent. No mass effect or midline shift is seen. The marinelli-white matter differentiation is normal. Periventricular white matter hypoattenuation is indicative of chronicsmall vessel ischemic disease. There is vascular calcification of the carotid siphons. No acute calvarial fracture is identified. Other than bilateral cataract extractions, the orbits appear normal. There is mild paranasal sinus disease. The mastoid air cells are grossly clear. No soft tissue abnormality is identified. Cervical spine: There is levocurvature of cervical spine, with focal kyphosis centeredat C3-C6 levels. There is grade 1 anterolisthesis of C3 over C4 and C4 overC5 and grade 1 retrolisthesis of C6 over C7 vertebral bodies. Vertebralbodies are normal in height without evidence of acute fracture. Other than advanced atlantoaxial joint osteoarthritis, the craniocervical junction appears normal. There is advanced degenerative disc disease. Mild spinal canal stenosis at multiple levels, for reference at C4-C5 and moderateat C5-C6 and C6-C7 levels. There are varying degrees of advanced facet osteoarthritis. There are varying degrees of advanced uncovertebraljoint osteoarthritis with the same degree of neural foraminal stenosis atthese levels. Acnu-[id number]-[id number] apical right pneumothorax. Biapical scarring. Thoracic spine: There is minimal retrolisthesis of T12 over L1 vertebral body. Minimal anterolisthesis of T2 over T3 vertebral bodies also suspected. The vertebral alignment is otherwise unremarkable. Vertebral bodies arenormal in height without evidence of acute fracture. There is advanced degenerative disc disease. No significant central canal stenosis isseen. 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 Mild asymmetricwidening of right T12-L1 facet joint is likely secondary to chronic ligamentous injury. No significant neural foraminal stenosis is seen. Apical pneumothorax is noted in right side. There is moderate volume pleural effusion on right side with loculated interlobar extension within themain fissure. Small dependent atelectasis is also present in both lungs,right greater than left. Small pericardial effusion. Trace left pleuraleffusion. Lumbar spine: Moderate dextrocurvature of lumbosacral junction. Minimaldextrocurvature of the lower lumbar spine. 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 Vertebral bodies are normal in height without evidence of acute fracture. There is advanced degenerative disc disease. There is central canal stenosis, mild at L3-L4 secondary to posterior disc bulgeand moderate at L4-5 level, secondary to anterolisthesis. 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 Neural foraminal stenosis is present, moderate at left L3-L4 and severe at bilateral L5-S1 levels. No soft tissue abnormality is identified. IMPRESSION: 1.No acute intracranial hemorrhage, midline shift, or significant mass effect. 2.No evidence of acute fracture in the cervical, thoracic, or lumbarspine. 3.Please refer to the separately dictated report of CT scan of thechest, abdomen and pelvis for intrathoracic and intra-abdominal findings. This study was dictated by president and chief executive officer Paul Arango MD and reviewed and edited by the attending. Jacobo Lezama MD have personally reviewed and interpretedthis examination/study. > Interpreting Provider: Jacobo Fermin MD on 03/01/2023 7:17 PM Charlie Barnes MD CT ORDERABLES * CT THORACIC SPINE WO CONTRAST - T/L-spine trauma, spine fracture (03/01/2023 2:31 PM [employer]) Anatomical Region Laterality Modality Spine Computed Tomogra phy 03/01/2023 2:52 PM [employer] Impressions 03/01/2023 7:17 PM [employer] IMPRESSION: 1.No acute intracranial hemorrhage, midline shift, or significant mass effect. 2.No evidence of acute fracture in the cervical, thoracic, or lumbar spine. 3.Please refer to the separately dictated report of CT scan of the chest, abdomen and pelvis for intrathoracic and intra-abdominal findings. This study was dictated by president and chief executive officer Paul Arango MD and reviewed and edited by the attending. Jacobo Lezama MD have personally reviewed and interpreted this examination/study. > Interpreting Provider: Jacobo Fermin MD on 03/01/2023 7:17 PM Narrative 03/01/2023 7:17 PM [employer] PROCEDURE: ??CT HEAD WO CONTRAST, CT LUMBAR SPINE WO CONTRAST, CT THORACIC SPINE WO CONTRAST, CT CERVICAL SPINE WO CONTRAST, DATE/TIME OF EXAM: 03/01/2023 2:34 PM, LOCATION ??[facility] INDICATION: Trauma ADDITIONAL CLINICAL INFORMATION: Ordering Provider Reason For Exam: ??Trauma. Technologist Note: ??None. Additional: ??None. EXAMINATION: 1.Computed tomography (CT) of the head without contrast 2.CT of the cervical spine without contrast 3.CT of the thoracic spine without contrast 4.CT of the lumbar spine without contrast TECHNIQUE: CT of the head and cervical spine was performed without contrast according to standard protocol. Reformatted axial, sagittal, and coronal images of the thoracic and lumbar spine were obtained by the technologist from a concurrently performed body CT and sent to the workstation for review. CT dose reduction technique was used, including Automated Exposure Control. COMPARISON: No prior study is available for comparison at the time of this dictation. FINDINGS: Head: No acute intra- or extra-axial fluid collections are identified. There is mild to moderate cerebral volume loss with associated sulcal prominence and ex-vacuo ventricular dilatation. Ventricular prominence is disproportionate to sulcal dilation which is a nonspecific finding and could be related to central volume loss. A superimposed element of normal pressure hydrocephalus cannot be totally excluded and should be correlated clinically. The basilar cisterns are patent. No mass effect or midline shift is seen. The marinelli-white matter differentiation is normal. Periventricular white matter hypoattenuation is indicative of chronic small vessel ischemic disease. There is vascular calcification of the carotid siphons. No acute calvarial fracture is identified. Other than bilateral cataract extractions, the orbits appear normal. There is mild paranasal sinus disease. The mastoid air cells are grossly clear. No soft tissue abnormality is identified. Cervical spine: There is levocurvature of cervical spine, with focal kyphosis centered at C3-C6 levels. There is grade 1 anterolisthesis of C3 over C4 and C4 over C5 and grade 1 retrolisthesis of C6 over C7 vertebral bodies. Vertebral bodies are normal in height without evidence of acute fracture. Other than advanced atlantoaxial joint osteoarthritis, the craniocervical junction appears normal. There is advanced degenerative disc disease. Mild spinal canal stenosis at multiple levels, for reference at C4-C5 and moderate at C5-C6 and C6-C7 levels. There are varying degrees of advanced facet osteoarthritis. There are varying degrees of advanced uncovertebral joint osteoarthritis with the same degree of neural foraminal stenosis at these levels. [id number] apical right pneumothorax. Biapical scarring. Thoracic spine: There is minimal retrolisthesis of T12 over L1 vertebral body. Minimal anterolisthesis of T2 over T3 vertebral bodies also suspected. The vertebral alignment is otherwise unremarkable. Vertebral bodies are normal in height without evidence of acute fracture. There is advanced degenerative disc disease. No significant central canal stenosis is seen. 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 Mild asymmetric widening of right T12-L1 facet joint is likely secondary to chronic ligamentous injury. No significant neural foraminal stenosis is seen. Apical pneumothorax is noted in right side. There is moderate volume pleural effusion on right side with loculated interlobar extension within the main fissure. Small dependent atelectasis is also present in both lungs, right greater than left. Small pericardial effusion. Trace left pleural effusion. Lumbar spine: Moderate dextrocurvature of lumbosacral junction. Minimal dextrocurvature of the lower lumbar spine. 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 Vertebral bodies are normal in height without evidence of acute fracture. There is advanced degenerative disc disease. There is central canal stenosis, mild at L3-L4 secondary to posterior disc bulge and moderate at L4-5 level, secondary to anterolisthesis. 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 Neural foraminal stenosis is present, moderate at left L3-L4 and severe at bilateral L5-S1 levels. No soft tissue abnormality is identified. Procedure Note Jacobo Fermin MD - 03/01/2023 PROCEDURE: CT HEAD WO CONTRAST, CT LUMBAR SPINE WO CONTRAST, CTTHORACIC SPINE WO CONTRAST, CT CERVICAL SPINE WO CONTRAST, DATE/TIME OF EXAM: 03/01/2023 2:34 PM, LOCATION [facility] INDICATION: Trauma ADDITIONAL CLINICAL INFORMATION: Ordering Provider Reason For Exam: Trauma. Technologist Note: None. Additional: None. EXAMINATION: 1.Computed tomography (CT) of the head without contrast 2.CT of the cervical spine without contrast 3.CT of the thoracic spine without contrast 4.CT of the lumbar spine without contrast TECHNIQUE: CT of the head and cervical spine was performed withoutcontrast according to standard protocol. Reformatted axial, sagittal, and coronal images of the thoracic and lumbar spine were obtained by thetechnologist from a concurrently performed body CT and sent to the workstation for review. CT dose reduction technique was used, including AutomatedExposure Control. COMPARISON: No prior study is available for comparison at the time ofthis dictation. FINDINGS: Head: No acute intra- or extra-axial fluid collections are identified. Thereis mild to moderate cerebral volume loss with associated sulcal prominenceand ex-vacuo ventricular dilatation. Ventricular prominence isdisproportionate to sulcal dilation which is a nonspecific finding and could be relatedto central volume loss. A superimposed element of normal pressure hydrocephalus cannot be totally excluded and should be correlated clinically. The basilar cisterns are patent. No mass effect or midline shift is seen. The marinelli-white matter differentiation is normal. Periventricular white matter hypoattenuation is indicative of chronicsmall vessel ischemic disease. There is vascular calcification of the carotid siphons. No acute calvarial fracture is identified. Other than bilateral cataract extractions, the orbits appear normal. There is mild paranasal sinus disease. The mastoid air cells are grossly clear. No soft tissue abnormality is identified. Cervical spine: There is levocurvature of cervical spine, with focal kyphosis centeredat C3-C6 levels. There is grade 1 anterolisthesis of C3 over C4 and C4 overC5 and grade 1 retrolisthesis of C6 over C7 vertebral bodies. Vertebralbodies are normal in height without evidence of acute fracture. Other than advanced atlantoaxial joint osteoarthritis, the craniocervical junction appears normal. There is advanced degenerative disc disease. Mild spinal canal stenosis at multiple levels, for reference at C4-C5 and moderateat C5-C6 and C6-C7 levels. There are varying degrees of advanced facet osteoarthritis. There are varying degrees of advanced uncovertebraljoint osteoarthritis with the same degree of neural foraminal stenosis atthese levels. Hsiz-md-samvzukz apical right pneumothorax. Biapical scarring. Thoracic spine: There is minimal retrolisthesis of T12 over L1 vertebral body. Minimal anterolisthesis of T2 over T3 vertebral bodies also suspected. The vertebral alignment is otherwise unremarkable. Vertebral bodies arenormal in height without evidence of acute fracture. There is advanced degenerative disc disease. No significant central canal stenosis isseen. 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 Mild asymmetricwidening of right T12-L1 facet joint is likely secondary to chronic ligamentous injury. No significant neural foraminal stenosis is seen. Apical pneumothorax is noted in right side. There is moderate volume pleural effusion on right side with loculated interlobar extension within themain fissure. Small dependent atelectasis is also present in both lungs,right greater than left. Small pericardial effusion. Trace left pleuraleffusion. Lumbar spine: Moderate dextrocurvature of lumbosacral junction. Minimaldextrocurvature of the lower lumbar spine. 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 Vertebral bodies are normal in height without evidence of acute fracture. There is advanced degenerative disc disease. There is central canal stenosis, mild at L3-L4 secondary to posterior disc bulgeand moderate at L4-5 level, secondary to anterolisthesis. 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 Neural foraminal stenosis is present, moderate at left L3-L4 and severe at bilateral L5-S1 levels. No soft tissue abnormality is identified. IMPRESSION: 1.No acute intracranial hemorrhage, midline shift, or significant mass effect. 2.No evidence of acute fracture in the cervical, thoracic, or lumbarspine. 3.Please refer to the separately dictated report of CT scan of thechest, abdomen and pelvis for intrathoracic and intra-abdominal findings. This study was dictated by president and chief executive officer Paul Arango MD and reviewed and edited by the attending. Jacobo Lezama MD have personally reviewed and interpretedthis examination/study. > Interpreting Provider: Jacobo Fermin MD on 03/01/2023 7:17 PM Charlie Barnes MD CT ORDERABLES * CT CERVICAL SPINE WO CONTRAST - C-Spine Trauma, Spine fracture (03/01/2023 2:31 PM [employer]) Anatomical Region Laterality Modality Spine Computed Tomogra phy 03/01/2023 2:52 PM [employer] Impressions 03/01/2023 7:17 PM [employer] IMPRESSION: 1.No acute intracranial hemorrhage, midline shift, or significant mass effect. 2.No evidence of acute fracture in the cervical, thoracic, or lumbar spine. 3.Please refer to the separately dictated report of CT scan of the chest, abdomen and pelvis for intrathoracic and intra-abdominal findings. This study was dictated by president and chief executive officer Paul Arango MD and reviewed and edited by the attending. Jcaobo Lezama MD have personally reviewed and interpreted this examination/study. > Interpreting Provider: Jacobo Fermin MD on 03/01/2023 7:17 PM Narrative 03/01/2023 7:17 PM [employer] PROCEDURE: ??CT HEAD WO CONTRAST, CT LUMBAR SPINE WO CONTRAST, CT THORACIC SPINE WO CONTRAST, CT CERVICAL SPINE WO CONTRAST, DATE/TIME OF EXAM: 03/01/2023 2:34 PM, LOCATION ??[facility] INDICATION: Trauma ADDITIONAL CLINICAL INFORMATION: Ordering Provider Reason For Exam: ??Trauma. Technologist Note: ??None. Additional: ??None. EXAMINATION: 1.Computed tomography (CT) of the head without contrast 2.CT of the cervical spine without contrast 3.CT of the thoracic spine without contrast 4.CT of the lumbar spine without contrast TECHNIQUE: CT of the head and cervical spine was performed without contrast according to standard protocol. Reformatted axial, sagittal, and coronal images of the thoracic and lumbar spine were obtained by the technologist from a concurrently performed body CT and sent to the workstation for review. CT dose reduction technique was used, including Automated Exposure Control. COMPARISON: No prior study is available for comparison at the time of this dictation. FINDINGS: Head: No acute intra- or extra-axial fluid collections are identified. There is mild to moderate cerebral volume loss with associated sulcal prominence and ex-vacuo ventricular dilatation. Ventricular prominence is disproportionate to sulcal dilation which is a nonspecific finding and could be related to central volume loss. A superimposed element of normal pressure hydrocephalus cannot be totally excluded and should be correlated clinically. The basilar cisterns are patent. No mass effect or midline shift is seen. The marinelli-white matter differentiation is normal. Periventricular white matter hypoattenuation is indicative of chronic small vessel ischemic disease. There is vascular calcification of the carotid siphons. No acute calvarial fracture is identified. Other than bilateral cataract extractions, the orbits appear normal. There is mild paranasal sinus disease. The mastoid air cells are grossly clear. No soft tissue abnormality is identified. Cervical spine: There is levocurvature of cervical spine, with focal kyphosis centered at C3-C6 levels. There is grade 1 anterolisthesis of C3 over C4 and C4 over C5 and grade 1 retrolisthesis of C6 over C7 vertebral bodies. Vertebral bodies are normal in height without evidence of acute fracture. Other than advanced atlantoaxial joint osteoarthritis, the craniocervical junction appears normal. There is advanced degenerative disc disease. Mild spinal canal stenosis at multiple levels, for reference at C4-C5 and moderate at C5-C6 and C6-C7 levels. There are varying degrees of advanced facet osteoarthritis. There are varying degrees of advanced uncovertebral joint osteoarthritis with the same degree of neural foraminal stenosis at these levels. Ttyh-ij-ajxxhrmy apical right pneumothorax. Biapical scarring. Thoracic spine: There is minimal retrolisthesis of T12 over L1 vertebral body. Minimal anterolisthesis of T2 over T3 vertebral bodies also suspected. The vertebral alignment is otherwise unremarkable. Vertebral bodies are normal in height without evidence of acute fracture. There is advanced degenerative disc disease. No significant central canal stenosis is seen. 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 Mild asymmetric widening of right T12-L1 facet joint is likely secondary to chronic ligamentous injury. No significant neural foraminal stenosis is seen. Apical pneumothorax is noted in right side. There is moderate volume pleural effusion on right side with loculated interlobar extension within the main fissure. Small dependent atelectasis is also present in both lungs, right greater than left. Small pericardial effusion. Trace left pleural effusion. Lumbar spine: Moderate dextrocurvature of lumbosacral junction. Minimal dextrocurvature of the lower lumbar spine. 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 Vertebral bodies are normal in height without evidence of acute fracture. There is advanced degenerative disc disease. There is central canal stenosis, mild at L3-L4 secondary to posterior disc bulge and moderate at L4-5 level, secondary to anterolisthesis. 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 Neural foraminal stenosis is present, moderate at left L3-L4 and severe at bilateral L5-S1 levels. No soft tissue abnormality is identified. Procedure Note Jacobo Fermin MD - 03/01/2023 PROCEDURE: CT HEAD WO CONTRAST, CT LUMBAR SPINE WO CONTRAST, CTTHORACIC SPINE WO CONTRAST, CT CERVICAL SPINE WO CONTRAST, DATE/TIME OF EXAM: 03/01/2023 2:34 PM, LOCATION [facility] INDICATION: Trauma ADDITIONAL CLINICAL INFORMATION: Ordering Provider Reason For Exam: Trauma. Technologist Note: None. Additional: None. EXAMINATION: 1.Computed tomography (CT) of the head without contrast 2.CT of the cervical spine without contrast 3.CT of the thoracic spine without contrast 4.CT of the lumbar spine without contrast TECHNIQUE: CT of the head and cervical spine was performed withoutcontrast according to standard protocol. Reformatted axial, sagittal, and coronal images of the thoracic and lumbar spine were obtained by thetechnologist from a concurrently performed body CT and sent to the workstation for review. CT dose reduction technique was used, including AutomatedExposure Control. COMPARISON: No prior study is available for comparison at the time ofthis dictation. FINDINGS: Head: No acute intra- or extra-axial fluid collections are identified. Thereis mild to moderate cerebral volume loss with associated sulcal prominenceand ex-vacuo ventricular dilatation. Ventricular prominence isdisproportionate to sulcal dilation which is a nonspecific finding and could be relatedto central volume loss. A superimposed element of normal pressure hydrocephalus cannot be totally excluded and should be correlated clinically. The basilar cisterns are patent. No mass effect or midline shift is seen. The marinelli-white matter differentiation is normal. Periventricular white matter hypoattenuation is indicative of chronicsmall vessel ischemic disease. There is vascular calcification of the carotid siphons. No acute calvarial fracture is identified. Other than bilateral cataract extractions, the orbits appear normal. There is mild paranasal sinus disease. The mastoid air cells are grossly clear. No soft tissue abnormality is identified. Cervical spine: There is levocurvature of cervical spine, with focal kyphosis centeredat C3-C6 levels. There is grade 1 anterolisthesis of C3 over C4 and C4 overC5 and grade 1 retrolisthesis of C6 over C7 vertebral bodies. Vertebralbodies are normal in height without evidence of acute fracture. Other than advanced atlantoaxial joint osteoarthritis, the craniocervical junction appears normal. There is advanced degenerative disc disease. Mild spinal canal stenosis at multiple levels, for reference at C4-C5 and moderateat C5-C6 and C6-C7 levels. There are varying degrees of advanced facet osteoarthritis. There are varying degrees of advanced uncovertebraljoint osteoarthritis with the same degree of neural foraminal stenosis atthese levels. Burh-qw-tamghaym apical right pneumothorax. Biapical scarring. Thoracic spine: There is minimal retrolisthesis of T12 over L1 vertebral body. Minimal anterolisthesis of T2 over T3 vertebral bodies also suspected. The vertebral alignment is otherwise unremarkable. Vertebral bodies arenormal in height without evidence of acute fracture. There is advanced degenerative disc disease. No significant central canal stenosis isseen. 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 Mild asymmetricwidening of right T12-L1 facet joint is likely secondary to chronic ligamentous injury. No significant neural foraminal stenosis is seen. Apical pneumothorax is noted in right side. There is moderate volume pleural effusion on right side with loculated interlobar extension within themain fissure. Small dependent atelectasis is also present in both lungs,right greater than left. Small pericardial effusion. Trace left pleuraleffusion. Lumbar spine: Moderate dextrocurvature of lumbosacral junction. Minimaldextrocurvature of the lower lumbar spine. 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 Vertebral bodies are normal in height without evidence of acute fracture. There is advanced degenerative disc disease. There is central canal stenosis, mild at L3-L4 secondary to posterior disc bulgeand moderate at L4-5 level, secondary to anterolisthesis. 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 Neural foraminal stenosis is present, moderate at left L3-L4 and severe at bilateral L5-S1 levels. No soft tissue abnormality is identified. IMPRESSION: 1.No acute intracranial hemorrhage, midline shift, or significant mass effect. 2.No evidence of acute fracture in the cervical, thoracic, or lumbarspine. 3.Please refer to the separately dictated report of CT scan of thechest, abdomen and pelvis for intrathoracic and intra-abdominal findings. This study was dictated by president and chief executive officer Paul Arango MD and reviewed and edited by the attending. I, Jacobo Fermin MD have personally reviewed and interpretedthis examination/study. > Interpreting Provider: Jacobo Fermin MD on 03/01/2023 7:17 PM Charlie Barnes MD CT ORDERABLES * CT HEAD WO CONTRAST - Head Trauma, CSF leak, mental status changes (03/01/2023 2:31 PM [employer]) Anatomical Region Laterality Modality Head Computed Tomogra phy 03/01/2023 2:52 PM [employer] Impressions 03/01/2023 7:17 PM [employer] IMPRESSION: 1.No acute intracranial hemorrhage, midline shift, or significant mass effect. 2.No evidence of acute fracture in the cervical, thoracic, or lumbar spine. 3.Please refer to the separately dictated report of CT scan of the chest, abdomen and pelvis for intrathoracic and intra-abdominal findings. This study was dictated by president and chief executive officer Paul Arango MD and reviewed and edited by the attending. Jacobo Lezama MD have personally reviewed and interpreted this examination/study. > Interpreting Provider: Jacobo Fermin MD on 03/01/2023 7:17 PM Narrative 03/01/2023 7:17 PM [employer] PROCEDURE: ??CT HEAD WO CONTRAST, CT LUMBAR SPINE WO CONTRAST, CT THORACIC SPINE WO CONTRAST, CT CERVICAL SPINE WO CONTRAST, DATE/TIME OF EXAM: 03/01/2023 2:34 PM, LOCATION ??[facility] INDICATION: Trauma ADDITIONAL CLINICAL INFORMATION: Ordering Provider Reason For Exam: ??Trauma. Technologist Note: ??None. Additional: ??None. EXAMINATION: 1.Computed tomography (CT) of the head without contrast 2.CT of the cervical spine without contrast 3.CT of the thoracic spine without contrast 4.CT of the lumbar spine without contrast TECHNIQUE: CT of the head and cervical spine was performed without contrast according to standard protocol. Reformatted axial, sagittal, and coronal images of the thoracic and lumbar spine were obtained by the technologist from a concurrently performed body CT and sent to the workstation for review. CT dose reduction technique was used, including Automated Exposure Control. COMPARISON: No prior study is available for comparison at the time of this dictation. FINDINGS: Head: No acute intra- or extra-axial fluid collections are identified. There is mild to moderate cerebral volume loss with associated sulcal prominence and ex-vacuo ventricular dilatation. Ventricular prominence is disproportionate to sulcal dilation which is a nonspecific finding and could be related to central volume loss. A superimposed element of normal pressure hydrocephalus cannot be totally excluded and should be correlated clinically. The basilar cisterns are patent. No mass effect or midline shift is seen. The marinelli-white matter differentiation is normal. Periventricular white matter hypoattenuation is indicative of chronic small vessel ischemic disease. There is vascular calcification of the carotid siphons. No acute calvarial fracture is identified. Other than bilateral cataract extractions, the orbits appear normal. There is mild paranasal sinus disease. The mastoid air cells are grossly clear. No soft tissue abnormality is identified. Cervical spine: There is levocurvature of cervical spine, with focal kyphosis centered at C3-C6 levels. There is grade 1 anterolisthesis of C3 over C4 and C4 over C5 and grade 1 retrolisthesis of C6 over C7 vertebral bodies. Vertebral bodies are normal in height without evidence of acute fracture. Other than advanced atlantoaxial joint osteoarthritis, the craniocervical junction appears normal. There is advanced degenerative disc disease. Mild spinal canal stenosis at multiple levels, for reference at C4-C5 and moderate at C5-C6 and C6-C7 levels. There are varying degrees of advanced facet osteoarthritis. There are varying degrees of advanced uncovertebral joint osteoarthritis with the same degree of neural foraminal stenosis at these levels. Qanq-wm-rbiyecca apical right pneumothorax. Biapical scarring. Thoracic spine: There is minimal retrolisthesis of T12 over L1 vertebral body. Minimal anterolisthesis of T2 over T3 vertebral bodies also suspected. The vertebral alignment is otherwise unremarkable. Vertebral bodies are normal in height without evidence of acute fracture. There is advanced degenerative disc disease. No significant central canal stenosis is seen. 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 Mild asymmetric widening of right T12-L1 facet joint is likely secondary to chronic ligamentous injury. No significant neural foraminal stenosis is seen. Apical pneumothorax is noted in right side. There is moderate volume pleural effusion on right side with loculated interlobar extension within the main fissure. Small dependent atelectasis is also present in both lungs, right greater than left. Small pericardial effusion. Trace left pleural effusion. Lumbar spine: Moderate dextrocurvature of lumbosacral junction. Minimal dextrocurvature of the lower lumbar spine. 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 Vertebral bodies are normal in height without evidence of acute fracture. There is advanced degenerative disc disease. There is central canal stenosis, mild at L3-L4 secondary to posterior disc bulge and moderate at L4-5 level, secondary to anterolisthesis. 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 Neural foraminal stenosis is present, moderate at left L3-L4 and severe at bilateral L5-S1 levels. No soft tissue abnormality is identified. Procedure Note Jacobo Fermin MD - 03/01/2023 PROCEDURE: CT HEAD WO CONTRAST, CT LUMBAR SPINE WO CONTRAST, CTTHORACIC SPINE WO CONTRAST, CT CERVICAL SPINE WO CONTRAST, DATE/TIME OF EXAM: 03/01/2023 2:34 PM, LOCATION [facility] INDICATION: Trauma ADDITIONAL CLINICAL INFORMATION: Ordering Provider Reason For Exam: Trauma. Technologist Note: None. Additional: None. EXAMINATION: 1.Computed tomography (CT) of the head without contrast 2.CT of the cervical spine without contrast 3.CT of the thoracic spine without contrast 4.CT of the lumbar spine without contrast TECHNIQUE: CT of the head and cervical spine was performed withoutcontrast according to standard protocol. Reformatted axial, sagittal, and coronal images of the thoracic and lumbar spine were obtained by thetechnologist from a concurrently performed body CT and sent to the workstation for review. CT dose reduction technique was used, including AutomatedExposure Control. COMPARISON: No prior study is available for comparison at the time ofthis dictation. FINDINGS: Head: No acute intra- or extra-axial fluid collections are identified. Thereis mild to moderate cerebral volume loss with associated sulcal prominenceand ex-vacuo ventricular dilatation. Ventricular prominence isdisproportionate to sulcal dilation which is a nonspecific finding and could be relatedto central volume loss. A superimposed element of normal pressure hydrocephalus cannot be totally excluded and should be correlated clinically. The basilar cisterns are patent. No mass effect or midline shift is seen. The marinelli-white matter differentiation is normal. Periventricular white matter hypoattenuation is indicative of chronicsmall vessel ischemic disease. There is vascular calcification of the carotid siphons. No acute calvarial fracture is identified. Other than bilateral cataract extractions, the orbits appear normal. There is mild paranasal sinus disease. The mastoid air cells are grossly clear. No soft tissue abnormality is identified. Cervical spine: There is levocurvature of cervical spine, with focal kyphosis centeredat C3-C6 levels. There is grade 1 anterolisthesis of C3 over C4 and C4 overC5 and grade 1 retrolisthesis of C6 over C7 vertebral bodies. Vertebralbodies are normal in height without evidence of acute fracture. Other than advanced atlantoaxial joint osteoarthritis, the craniocervical junction appears normal. There is advanced degenerative disc disease. Mild spinal canal stenosis at multiple levels, for reference at C4-C5 and moderateat C5-C6 and C6-C7 levels. There are varying degrees of advanced facet osteoarthritis. There are varying degrees of advanced uncovertebraljoint osteoarthritis with the same degree of neural foraminal stenosis atthese levels. [id number]-lawrcavn apical right pneumothorax. Biapical scarring. Thoracic spine: There is minimal retrolisthesis of T12 over L1 vertebral body. Minimal anterolisthesis of T2 over T3 vertebral bodies also suspected. The vertebral alignment is otherwise unremarkable. Vertebral bodies arenormal in height without evidence of acute fracture. There is advanced degenerative disc disease. No significant central canal stenosis isseen. 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 Mild asymmetricwidening of right T12-L1 facet joint is likely secondary to chronic ligamentous injury. No significant neural foraminal stenosis is seen. Apical pneumothorax is noted in right side. There is moderate volume pleural effusion on right side with loculated interlobar extension within themain fissure. Small dependent atelectasis is also present in both lungs,right greater than left. Small pericardial effusion. Trace left pleuraleffusion. Lumbar spine: Moderate dextrocurvature of lumbosacral junction. Minimaldextrocurvature of the lower lumbar spine. 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 Vertebral bodies are normal in height without evidence of acute fracture. There is advanced degenerative disc disease. There is central canal stenosis, mild at L3-L4 secondary to posterior disc bulgeand moderate at L4-5 level, secondary to anterolisthesis. 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 Neural foraminal stenosis is present, moderate at left L3-L4 and severe at bilateral L5-S1 levels. No soft tissue abnormality is identified. IMPRESSION: 1.No acute intracranial hemorrhage, midline shift, or significant mass effect. 2.No evidence of acute fracture in the cervical, thoracic, or lumbarspine. 3.Please refer to the separately dictated report of CT scan of thechest, abdomen and pelvis for intrathoracic and intra-abdominal findings. This study was dictated by president and chief executive officer Paul Arango MD and reviewed and edited by the attending. Jacobo Lezama MD have personally reviewed and interpretedthis examination/study. > Interpreting Provider: Jacobo Fermin MD on 03/01/2023 7:17 PM [address] MD [address] ORDERABLES * XR KNEE RIGHT 2VW OR LESS (03/01/2023 1:22 PM [employer]) Anatomical Region Laterality Modality Lower Extremity Radiographic Fabi ging 03/01/2023 2:16 PM [employer] Impressions 03/02/2023 11:32 AM [employer] IMPRESSION: 1.No acute fracture or dislocation identified in right femur and right knee. 2.Total knee arthroplasty hardware appear intact, without evidence of loosening. Report dictated by Paul Arango MD (president and chief executive officer). Deuce Lezama DO have personally reviewed and interpreted this examination/study. > Interpreting Provider: Deuce Ramirez DO on 03/02/2023 11:32 AM Narrative 03/02/2023 11:32 AM [employer] PROCEDURE: ??XR FEMUR RIGHT 2VW, XR KNEE RIGHT 2VW OR LESS, DATE/TIME OF EXAM: ??03/01/2023 1:22 PM, LOCATION ??[facility] INDICATION: T14.90XA: Trauma COMPARISON: None. FINDINGS: Right femur: Total knee arthroplasty hardware in distal femur. An osseous fragment within the soft tissues posterior to femoral condyle secondary to old trauma. The femur is otherwise intact without acute fracture. The hip joint space is preserved. The bones are mildly diffusely demineralized. Right knee: Total knee arthroplasty hardware appear intact. The osseous structures are otherwise intact and well aligned without acute fracture or dislocation. No joint effusion is seen. The bones are mildly diffusely demineralized. Procedure Note Deuce Ramirez DO - 03/02/2023 PROCEDURE: XR FEMUR RIGHT 2VW, XR KNEE RIGHT 2VW OR LESS, DATE/TIME OF EXAM: 03/01/2023 1:22 PM, LOCATION [facility] INDICATION: T14.90XA: Trauma COMPARISON: None. FINDINGS: Right femur: Total knee arthroplasty hardware in distal femur. An osseous fragment within the soft tissues posterior to femoral condyle secondary to old trauma. The femur is otherwise intact without acute fracture. The hipjoint space is preserved. The bones are mildly diffusely demineralized. Right knee: Total knee arthroplasty hardware appear intact. The osseous structuresare otherwise intact and well aligned without acute fracture or dislocation.No joint effusion is seen. The bones are mildly diffusely demineralized. IMPRESSION: 1.No acute fracture or dislocation identified in right femur and right knee. 2.Total knee arthroplasty hardware appear intact, without evidence of loosening. Report dictated by Paul Arango MD (president and chief executive officer). Deuce Lezama DO have personally reviewed and interpreted this examination/study. > Interpreting Provider: Deuce Ramirez DO on 03/02/2023 11:32 AM Charlie Barnes MD DIAGNOSTIC IMAGING ORDERABLES * XR FEMUR RIGHT 2VW (03/01/2023 1:22 PM [employer]) Anatomical Region Laterality Modality Lower Extremity Radiographic Fabi ging 03/01/2023 2:16 PM [employer] Impressions 03/02/2023 11:32 AM [employer] IMPRESSION: 1.No acute fracture or dislocation identified in right femur and right knee. 2.Total knee arthroplasty hardware appear intact, without evidence of loosening. Report dictated by Paul Arango MD (president and chief executive officer). Deuce Lezama DO have personally reviewed and interpreted this examination/study. > Interpreting Provider: Deuce Ramirez DO on 03/02/2023 11:32 AM Narrative 03/02/2023 11:32 AM [employer] PROCEDURE: ??XR FEMUR RIGHT 2VW, XR KNEE RIGHT 2VW OR LESS, DATE/TIME OF EXAM: ??03/01/2023 1:22 PM, LOCATION ??[facility] INDICATION: T14.90XA: Trauma COMPARISON: None. FINDINGS: Right femur: Total knee arthroplasty hardware in distal femur. An osseous fragment within the soft tissues posterior to femoral condyle secondary to old trauma. The femur is otherwise intact without acute fracture. The hip joint space is preserved. The bones are mildly diffusely demineralized. Right knee: Total knee arthroplasty hardware appear intact. The osseous structures are otherwise intact and well aligned without acute fracture or dislocation. No joint effusion is seen. The bones are mildly diffusely demineralized. Procedure Note Deuce Ramirez DO - 03/02/2023 PROCEDURE: XR FEMUR RIGHT 2VW, XR KNEE RIGHT 2VW OR LESS, DATE/TIME OF EXAM: 03/01/2023 1:22 PM, LOCATION [facility] INDICATION: T14.90XA: Trauma COMPARISON: None. FINDINGS: Right femur: Total knee arthroplasty hardware in distal femur. An osseous fragment within the soft tissues posterior to femoral condyle secondary to old trauma. The femur is otherwise intact without acute fracture. The hipjoint space is preserved. The bones are mildly diffusely demineralized. Right knee: Total knee arthroplasty hardware appear intact. The osseous structuresare otherwise intact and well aligned without acute fracture or dislocation.No joint effusion is seen. The bones are mildly diffusely demineralized. IMPRESSION: 1.No acute fracture or dislocation identified in right femur and right knee. 2.Total knee arthroplasty hardware appear intact, without evidence of loosening. Report dictated by Paul Arango MD (president and chief executive officer). Deuce Lezama DO have personally reviewed and interpreted this examination/study. > Interpreting Provider: Deuce Ramirez DO on 03/02/2023 11:32 AM Charlie Barnes MD DIAGNOSTIC IMAGING ORDERABLES * XR PELVIS 1 OR 2VW (03/01/2023 1:10 PM [employer]) Anatomical Region Laterality Modality Pelvis Radiographic Fabi ging 03/01/2023 2:14 PM [employer] Impressions 03/02/2023 10:03 AM [employer] IMPRESSION: No acute fracture identified. Report dictated by Paul Arango MD (president and chief executive officer). Deuce Lezama DO have personally reviewed and interpreted this examination/study. > Interpreting Provider: Deuce Ramirez DO on 03/02/2023 10:03 AM Narrative 03/02/2023 10:03 AM [employer] PROCEDURE: ??XR PELVIS 1 OR 2VW, DATE/TIME OF EXAM: ??03/01/2023 1:22 PM, LOCATION ??[facility] INDICATION: Trauma Fracture suspected COMPARISON: None. FINDINGS: Residual contrast within the bladder from recent imaging limits evaluation of lower sacrum and bilateral superior pubic rami. Within the study limitations, no acute fracture is identified. The femoral heads appear well-seated within their respective acetabula. The pubic symphysis is intact. The bones are mildly diffusely demineralized. The sacroiliac joints are normal. Procedure Note Deuce Ramirez DO - 03/02/2023 PROCEDURE: XR PELVIS 1 OR 2VW, DATE/TIME OF EXAM: 03/01/2023 1:22 PM, LOCATION [facility] INDICATION: Trauma Fracture suspected COMPARISON: None. FINDINGS: Residual contrast within the bladder from recent imaging limitsevaluation of lower sacrum and bilateral superior pubic rami. Within the study limitations, no acute fracture is identified. Thefemoral heads appear well-seated within their respective acetabula. The pubic symphysis is intact. The bones are mildly diffusely demineralized. The sacroiliac joints are normal. IMPRESSION: No acute fracture identified. Report dictated by Paul Arango MD (president and chief executive officer). I, Deuce Ramirez DO have personally reviewed and interpreted this examination/study. > Interpreting Provider: Deuce Ramirez DO on 03/02/2023 10:03 AM Charlie Barnes MD DIAGNOSTIC IMAGING ORDERABLES * (ABNORMAL) TEG 6 GLOBAL HEMOSTASIS W/ LYSIS (03/01/2023 1:09 PM [employer]) Citrated Kaolin R (Reaction Time) 4.2(L) 4.6 - 9.1 min 03/01/2023 2:29 PM [facility] Comment:CK R result below no rmal range. Consistent with hypercoagulable clotting factors. Citrated Kaolin LY30 (Lysis) 0.3 0.0 - 2.6 % 03/01/2023 2:29 PM [facility] Citrated Functional Fibrinogen MA (Max Amplitude) 24.5 15.0 - 32.0 mm 03/01/2023 2:29 PM [facility] Citrated RapidTEG MA (Max Amplitude) 65.7 52.0 - 70.0 mm 03/01/2023 2:29 PM [facility] Blood BLOOD SPECIMEN / Unknown Venipuncture / Unknown 03/01/2023 1:09 PM [employer] 03/01/2023 1:18 PM [employer] Charlie Barnes MD LAB - HEMATOLOGY OR DERABLES Performing Organization Address City/[facility]/ZIP Co de Phone Number [address] [address], [facility] [phone] * (ABNORMAL) TEG 6S PLATELET MAPPING (03/01/2023 1:09 PM [employer]) TEGPLM (Max Amplitude) Koalin 66.0 53.0 - 68.0 mm 03/01/2023 2:59 PM [facility] TEGPLM (Max Amplitude) ACTF 13.2 2.0 - 19.0 mm 03/01/2023 2:59 PM [facility] TEGPLM (Max Amplitude) ADP 54.7 45.0 - 69.0 mm 03/01/2023 2:59 PM [facility] TEGPLM (Max Amplitude) AA 63.8 51.0 - 71.0 mm 03/01/2023 2:59 PM [facility] TEGPLM %Inhibition ADP 21.4(H) 0.0 - 17.0 % 03/01/2023 2:59 PM [facility] TEGPLM %Inhibition AA 4.2 0.0 - 11.0 % 03/01/2023 2:59 PM [facility] TEGPLM %Aggregation ADP 78.6(L) 83.0 - 100.0 % 03/01/2023 2:59 PM [facility] TEGPLM % Aggregation AA 95.8 89.0 - 100.0 % 03/01/2023 2:59 PM [facility] Blood BLOOD SPECIMEN / Unknown Venipuncture / Unknown 03/01/2023 1:09 PM [employer] 03/01/2023 1:18 PM [employer] Charlie Barnes MD LAB - HEMATOLOGY OR DERABLES [address] [address], [facility] [phone] * PTT [facility] (03/01/2023 12:56 PM [employer]) APTT 32.1 23.0 - 38.4 Seconds 03/01/2023 1:26 PM [employer] [facility] Comment:Suggested therapeuti c range for full dose I.V. unfractionated heparin therapy for venous thromboembolism is 71 to 109 seconds. Blood BLOOD SPECIMEN / Unknown Venipuncture / Unknown 03/01/2023 12:56 PM [employer] 03/01/2023 1:05 PM [employer] Charlie Barnes MD LAB - COAGULATION O RDERABLES [facility] [address] [place] [address], [facility] [phone] * TUBERCULOSIS (PPD) INTRADERMAL (05/25/2015) [facility] IMM-[facility]J ORDERABLES * TSH (04/16/2015 8:37 AM [employer]) Only the most recent of5 resultswithin the time period is included. TSH 2.614 0.35 - 4.94 uIU/mL 04/16/2015 7:59 PM [employer] [facility] Blood BLOOD SPECIMEN / Unknown Venipuncture / Unknown 04/16/2015 8:37 AM [employer] 04/16/2015 8:45 AM [employer] [facility] LAB - CHEMISTRY OR DERABLES [facility] [address] * AMB REFERRAL TO ORTHOPEDICS (09/09/2014) [facility] OUTPATIENT REFERRA LS * XR HIP 2+ VW LEFT (08/26/2014 4:40 PM CDT) Only the most recent of2 resultswithin the time period is included. Anatomical Region Laterality Modality Pelvis, Lower Extremity Radiogra phic Imaging 08/26/2014 4:44 PM CDT Impressions 08/26/2014 4:59 PM CDT Normal left hip. Narrative 08/26/2014 4:59 PM CDT LEFT HIP 2 VIEWS 08/26/2014 CLINICAL HISTORY: Low back pain radiating to left hip. FINDINGS: Views of the left hip show no fracture, dislocation or other bony abnormalities. Procedure Note Jed Rush MD - 08/26/2014 LEFT HIP 2 VIEWS 08/26/2014 CLINICAL HISTORY: Low back pain radiating to left hip. FINDINGS: Views of the left hip show no fracture, dislocation or other bony abnormalities. IMPRESSION Normal left hip. [facility] GUEST HISTORY CLERK-ADDICTION THERAPIST DIAGNOSTIC IMAGING ORDERABLES * XR LUMBAR SPINE 4+ VW (08/24/2014 10:35 AM CDT) Anatomical Region Laterality Modality Spine Radiographic Fabi ging 08/24/2014 10:3 9 AM CDT Impressions 08/24/2014 10:50 AM CDT Progressive degenerative changes as described. Narrative 08/24/2014 10:50 AM CDT LUMBAR SPINE (08/24/2014) CLINICAL HISTORY: Back pain. COMPARISON: 08/10/2010. FINDINGS: No acute fracture, dislocation or destructive process. Severe disc degeneration L5-S1 with significant interval progression. Grade I spondylolisthesis of L5 in relation to S1. Lumbar spondylosis. Mild to moderate disc degeneration L1-L2. Mild anterolisthesis of L4 in relation to L5 as well. Pedicles and paraspinal soft tissue structures are normal. Facet degeneration L2-L3, L3-L4, L4-L5 and L5-S1. Procedure Note Jed Rush MD - 08/24/2014 LUMBAR SPINE (08/24/2014) CLINICAL HISTORY: Back pain. COMPARISON: 08/10/2010. FINDINGS: No acute fracture, dislocation or destructive process. Severe disc degeneration L5-S1 with significant interval progression. Grade I spondylolisthesis of L5 in relation to S1. Lumbar spondylosis. Mild to moderate disc degeneration L1-L2. Mild anterolisthesis of L4 in relation to L5 as well. Pedicles and paraspinal soft tissue structures are normal. Facet degeneration L2-L3, L3-L4, L4-L5 and L5-S1. IMPRESSION Progressive degenerative changes as described. [facility] DIAGNOSTIC IMAGING ORDERABLES * (ABNORMAL) URINALYSIS AUTO - POINT OF CARE (AMB) SMGS (08/24/2014) Clarity UA POCT clear Color UA POCT yellow Glucose UA Negative Negative Bilirubin UA POCT Negative Negative Ketone UA Negative Negative Specific Burnet UA POCT 1.010 1.002 - 1.030 Blood UA POCT Trace-Lysed( A) Negative pH UA 6.5 5.0 - 8.0 pH units Protein UA POCT Negative Negative Urobilinogen UA 0.2 0.1 - 1.0 Nitrite UA POCT Negative Negative Leukocyte UA Negative Negative QC Verified Yes Urine specimen (specimen) URINE / Unknown 08/24/2014 [facility] LAB - POINT OF CAR E ORDERABLES * IRON + TRANSFERRIN PANEL (04/27/2014 11:56 AM [employer]) Pathologist [facility] Iron 116 50 - 170 ug/dL 04/27/2014 8:18 PM [facility] Transferrin 324 180 - 382 mg/dL 04/27/2014 8:18 PM [employer] [facility] TIBC Calculated 405 261 - 497 mg/dL 04/27/2014 8:18 PM [employer] [facility] Iron Saturation % 29 11 - 45 % 04/27/2014 8:18 PM [facility] Blood BLOOD SPECIMEN / Unknown Venipuncture / Unknown 04/27/2014 11:56 AM [employer] 04/27/2014 11:56 AM [employer] [facility] [facility] LAB - CHEMISTRY OR DERABLES Performing Organization Address City/State/[facility] Co de Phone Number [facility] [address] [place], [place] [id number] [place] [address] * FERRITIN (04/27/2014 11:56 AM [employer]) Ferritin 21 5 - 204 ng/mL 04/27/2014 8:53 PM [employer] [facility] Blood BLOOD SPECIMEN / Unknown Venipuncture / Unknown 04/27/2014 11:56 AM [employer] 04/27/2014 11:56 AM [employer] [facility] LAB - CHEMISTRY OR DERABLES [facility] [address] * XR CERVICAL SPINE MIN 4+ VW (11/05/2013 11:05 AM CDT) Anatomical Region Laterality Modality Spine Radiographic Fabi ging 11/05/2013 11:1 1 AM CDT Impressions 11/05/2013 11:29 AM CDT No fracture Severe cervical spondylosis as described. Narrative 11/05/2013 11:29 AM CDT CERVICAL SPINE 5 VIEWS 11/05/2013 Clinical history: Trauma FINDINGS: No acute fracture, dislocation or destructive process. Severe disc space narrowing is noted at C5-C6, C6-7 and C7-T1 and moderate disc space narrowing is noted at C4-C5 compatible with severe cervical spondylitic changes. There is evidence of mild scoliosis of spine secondary to severe degeneration. Prevertebral soft tissue structures are unremarkable. Neuroforaminal narrowing is noted at C4-C5, C5-C6 and C6-C7. Procedure Note Jed Rush MD - 11/05/2013 CERVICAL SPINE 5 VIEWS 11/05/2013 Clinical history: Trauma FINDINGS: No acute fracture, dislocation or destructive process. Severe disc space narrowing is noted at C5-C6, C6-7 and C7-T1 and moderate disc space narrowing is noted at C4-C5 compatible with severe cervical spondylitic changes. There is evidence of mild scoliosis of spine secondary to severe degeneration. Prevertebral soft tissue structures are unremarkable. Neuroforaminal narrowing is noted at C4-C5, C5-C6 and C6-C7. IMPRESSION No fracture Severe cervical spondylosis as described. [facility] DIAGNOSTIC IMAGING ORDERABLES * WILDER SCREENING DIGITAL BILATERAL (09/10/2013 11:45 AM CDT) Anatomical Region Laterality Modality Breast Bilateral Mammography 09/11/2013 2:39 PM CDT Impressions 09/11/2013 4:52 PM CDT 1. BI-RADS Category 2. 2. Annual screening mammography recommended. A) ?? A negative report should not delay a biopsy if a dominant or ? clinically suspicious mass is present. B) ??Adenosis and dense breasts may obscure an underlying neoplasm. C) ??Study interpreted with computer aided detection. MQSA BI-RADS Categories: Category 0 - needs additional imaging evaluation. Category 1 - negative. Category 2 - benign findings. Category 3 - probably benign findings, but short interval follow-up is recommended. Category 4 - suspicious abnormality and biopsy should be considered though the lesion may well be benign. Category 5 - highly suggestive of malignancy and appropriate action should be taken. Narrative 09/11/2013 4:52 PM CDT DIGITAL BILATERAL SCREENING MAMMOGRAM WITH COMPUTER AIDED DIAGNOSIS: (09/10/2013) HISTORY: Screening examination. No complaints listed referable to either breast. COMPARISON: 09/06/2012, 09/06/2011, 08/30/2010 and 08/19/2009. FINDINGS: Moderately dense and nodular parenchymal pattern bilaterally. Benign appearing nodularity and calcification in both breasts. Parenchymal pattern has similar appearance to the prior studies. Nothing specific for malignancy in either breast. Procedure Note Evaristo Hernández MD - 09/11/2013 DIGITAL BILATERAL SCREENING MAMMOGRAM WITH COMPUTER AIDED DIAGNOSIS: (09/10/2013) HISTORY: Screening examination. No complaints listed referable to either breast. COMPARISON: 09/06/2012, 09/06/2011, 08/30/2010 and 08/19/2009. FINDINGS: Moderately dense and nodular parenchymal pattern bilaterally. Benign appearing nodularity and calcification in both breasts. Parenchymal pattern has similar appearance to the prior studies. Nothing specific for malignancy in either breast. IMPRESSION 1. BI-RADS Category 2. 2. Annual screening mammography recommended. A) A negative report should not delay a biopsy if a dominant or clinically suspicious mass is present. B) Adenosis and dense breasts may obscure an underlying neoplasm. C) Study interpreted with computer aided detection. MQSA BI-RADS Categories: Category 0 - needs additional imaging evaluation. Category 1 - negative. Category 2 - benign findings. Category 3 - probably benign findings, but short interval follow-up is recommended. Category 4 - suspicious abnormality and biopsy should be considered though the lesion may well be benign. Category 5 - highly suggestive of malignancy and appropriate action should be taken. [facility] [place] APRN-ADDICTION THERAPIST MAMMO ORDERABLES * DEXA BONE DENSITY 2 SITES (09/10/2013 [...] on same machine if possible. [facility] DEXA ORDERABLES * LIPID PROFILE (08/13/2013 8:16 AM CDT) Cholesterol 171 100 - 199 mg/dL [facility] INSURANCE BILL Triglycerides 88 0 - 149 mg/dL [facility] INSURANCE BILL HDL Cholesterol 74 >39 mg/dL [facility] INSURANCE BILL Comment: According to ATP-III Guidelines, HDL-C >59 mg/dL is considered a negative risk factor for CHD. VLDL Calculated 18 5 - 40 mg/dL [facility] INSURANCE BILL LDL Calculated 79 0 - 99 mg/dL [facility] INSURANCE BILL Comment NOT NEEDED [facility] INSURANCE BILL Comment:Ancillary determined the test is not needed Blood specimen (specimen) BLOOD SPECIMEN / Unknown 08/13/2013 8:16 AM CDT 08/13/2013 7:06 PM CDT Narrative Resulting Agency Comment Lab[address] ??[facility]ly [facility] [phone] [place] GUEST HISTORY CLERK-[facility] [place] LAB - CHEMISTRY OR DERABLES [facility] INSURANCE BILL * OCCULT BLOOD FECES 1-3 IMMUNOASSAY (07/23/2013 4:40 PM CDT) Only the most recent of2 resultswithin the time period is included. Occult Blood Immunoassay Negative Negative [facility] INSURANCE BILL STOOL SPECIMEN / Unknown 07/23/2013 4:40 PM CDT 07/23/2013 7:09 PM CDT Narrative Resulting Agency Comment [address] ??[facility] [phone] [place] GUEST HISTORY CLERK-[facility] [place] LAB - BODY FLUID O RDERABLES [facility] INSURANCE BILL * VITAMIN D 25-HYDROXY (07/01/2013 9:19 AM CDT) Vitamin D, 25 Hydroxy 52.6 30.0 - 100.0 ng/mL [facility] INSURANCE BILL Comment: Vitamin D deficiency has been defined by the [place] [employer] and an Endocrine Society practice guideline as a level of serum 25-OH vitamin D less than 20 ng/mL (1,2). The Endocrine Society went on to further define vitamin D insufficiency as a level between 21 and 29 ng/mL (2). 1. IOM ([place] [employer]). 2010. Dietary reference ?? intakes for calcium and D. [place]: The ?? National Academies Press. 2. Cecy MF, Natalie THOMPSON, Francisco DESAI, et al. ?? Evaluation, treatment, and prevention of vitamin D ?? deficiency: an Endocrine Society clinical practice ?? guideline. JCEM. 2010; 96(7):1911-30. Blood specimen (specimen) BLOOD SPECIMEN / Unknown 07/01/2013 9:19 AM CDT 07/01/2013 7:20 PM CDT Narrative Resulting Agency [facility] [address] ??[facility] [phone] [place] GUEST HISTORY CLERK-ADDICTION THERAPIST LAB - CHEMISTRY OR DERABLES Performing Organization Address [facility] Co de Phone Number [facility] INSURANCE BILL * (ABNORMAL) VITAMIN B12 (07/01/2013 9:19 AM CDT) Vitamin B12 1,802(H) 211 - 946 pg/mL [facility] INSURANCE BILL Blood specimen (specimen) BLOOD SPECIMEN / Unknown 07/01/2013 9:19 AM CDT 07/01/2013 7:20 PM CDT Narrative Resulting Agency Comment [facility] [address] ??[facility] [phone] [place] GUEST HISTORY CLERK-ADDICTION THERAPIST LAB - CHEMISTRY OR DERABLES Performing Organization Address [facility] Co de Phone Number [facility] INSURANCE BILL * GROSS + MICRO EXAM (06/05/1997 11:40 AM [employer]) Result CASE NUMBER [id number] Comment: ORDERING PHYSICIAN ??GANESH BOWIE SPECIMEN TYPE ?Uterus Tubes Ovarie Date of Surgery ?06/05/1997 0820 SPECIMEN SOURCE ? Uterus, tubews and ovaries *Pre Op Dx ? Pelvic pain GROSS DESCRIPTION ? Received in fixative and labeled Elisha Cruz, uterus, tubes and ovaries, there is a 105.0 gram uterus and cervix with associated bilateral fallopian tubes and ovaries. The right and left fallopian tubes (9.0 and 9.5 cm. in length, respectively) have a smooth, glistening, pink, finely vascularized serosa and delicate purple fimbriae. The 2.4 gram right ovary measures 2.6 x 1.6 x 1.2 cm. and has a glistening, focally wrinkled, pink to brandon external cortical surface and on serial transverse section shows a centrally situated prominent, rubbery, white to pink to brandon nodule, 1.2 cm. in maximal dimension, occupying essentially all of the center of the ovary. The 4.7 gram left ovary measures 3.0 x 2.7 x 1.4 cm. and has a smooth to wrinkled, glistening, brandon to occasionally pink external cortical surface and on serial transverse section shows a soft, pink to occasionally brandon parenchyma, within which there is a prominent, black to brown cyst, 1.8 cm. in maximal dimension, and several discrete, rubbery, white nodules, up to 0.5 cm. in maximal dimension. The 5.0 cm. long uterus measures 5.0 x 4.3 cm. in cross sectional area at the midpoint and has a smooth, glistening, pink to brandon serosa. At the distal end of the 3.0cm. long uterine cervix, there is a 0.5 cm. diameter external cervical os, surrounded by a rim of smooth, glistening, brandon to occasionally faintly purple exocervical mucosa, varying in width from 1.6-2.4 cm. A longitudinal cut has already been made from the approximate 12 00 position of the rim of the exocervical mucosa to the uterocervical junctional area, extending to an apparent depth of 0.7cm. into the underlying cervical tissue without attaining the endocervical canal. The endocervical canal is patent and is lined with a glistening, brandon mucosa. At the distal end of the endocervical canal, immediately proximal to the squamocolumnar junctional area, there is a 0.9 cm. long possible endocervical polyp, measuring 0.4 x 0.3 cm. in cross sectional area at its midpoint. The 4.0 cm. long intrauterine cavity has a smooth, glistening, brandon, focally hyperemic endometrium, 0.15 cm. in maximal apparent thickness. Section of the uterine wall reveals a rubbery, brandon myometrium, 2.3 cm. in maximal apparent thickness. In the right fundal area, there is a rubbery, brandon subendometrial nodule, 1.0 cm. in maximal dimension. Two additional similar rubbery, white nodules are found within the uterine wall, varying in maximal dimension from 0.6-0.9 cm. Cassette A1 = right ovary and fallopian tube with apparent paratubal lipoma. Cassettes A2 and A3 = left ovary and fallopian tube. Cassette A4 = endometrium and myometrium and two small intramural fibroids (larger bisected). Cassettes A5 and A6 = fundal endometrium and myometrium with two sections of subendometrial fibroid. Cassettes A7-A9 = endometrium and myometrium, random sections. Cassette A10 = longitudinal sections, distal uterine cervix with possible bisected endocervical polyp. Cassette A11 = additional longitudinal sections, distal uterine cervix. Grossed by ? ANGELICA LYONS M.D. *MICROSCOPIC EXAM ? Five slides with sections of the uterine wall generously sampled in cassettes A4-A8 show a benign, inactive, attenuated endometrium, characterized by a densely cellular stroma containing a few straight to mildly cystically dilated glands lined with columnar epithelium. Occasional pink laminated concrements and pink secretory material are focally seen within glandular lumina. ??Slide A7 contains prominent deposits of benign endometrial glands and stroma within the deep smooth muscle of the underlying myometrium, indicative of adenomyosis. In addition, on slides A5, A6 and A8 there are four benign intramural leiomyomata, characterized by the customary intersecting bundles of spindled cells with pink fibrillary cytoplasm and bland, oval to cigar-shaped nuclei. Two additional intramural leiomyomata are included on slide A4. These are analogous to those already described except for the presence of occasional dystrophic microcalcifications. In all of these leiomyomata, mitotic figures are rare (no mitoses identified in eighty high power almanzar examined). The longitudinal sections of distal uterine cervix (cassettes A10 and A11) show focally prominent submucosal Nabothian cysts and mild to moderate acute and chronic cervicitis. In addition, on slide A11, there is a bisected endocervical polyp with a fibromuscular stroma containing occasional thick-walled blood vessels and scattered irregular glands lined with cuboidal to tall columnar epithelium. Three slides from cassettes A1-A3 show multiple sections of benign right and left ovaries with multiple old hyalinized corpora albicantia. In addition, the left ovary submitted in cassettes A2 and A3 shows focally prominent hemorrhage into an old apparent hyalinized corpus albicans with associated prominent mural deposits of hemosiderin-laden macrophages, together with occasional clumps of dystrophic microcalcifications. The left ovary also contains occasional old follicle cysts. The included cross sections of right and left fallopian tubes appear atrophic and are otherwise unremarkable except for a subserosal lipoma evident on the right and a paratubal subserosal cyst on the left. Read by ?ANGELICA LYONS M.D. DIAGNOSIS ? 105.0 GRAM UTERUS AND CERVIX WITH BILATERAL FALLOPIAN TUBES AND OVARIES ?? (1) BENIGN ATTENUATED AND INACTIVE ENDOMETRIUM. ?? (2) ADENOMYOSIS. ?? (3) SIX BENIGN LEIOMYOMATA, UTERINE, INTRAMURAL AND SUBENDOMETRIAL. ?? (4) UTERINE CERVIX SHOWING ?(A) BENIGN ENDOCERVICAL POLYP. ?(B) MILD TO MODERATE ACUTE AND CHRONIC CERVICITIS. ?? (5) 2.4 GRAM BENIGN RIGHT OVARY WITH MULTIPLE OLD HYALINIZED ? CORPORA ALBICANTIA. ?? (6) 4.7 GRAM BENIGN LEFT OVARY WITH MULTIPLE OLD CORPORA ALBICANTIA ? AND OCCASIONAL HEMORRHAGE INTO OLD CORPUS ALBICANS. ?? (7) BENIGN ATROPHIC RIGHT AND LEFT FALLOPIAN TUBES WITH ONE SMALL ? SUBSEROSAL LIPOMA AND OCCASIONAL SMALL BENIGN PARATUBAL CYSTS. CODE 4,8 CPT ??LEVEL V ??14196 RELEASED BY ?ANGELICA Hensley MISCELLANEOUS SAMPLES / Unknown 06/05/1997 11:40 AM AIRCRAFT POWER PLANT ASSEMBLER 06/05/1997 12:29 PM AIRCRAFT POWER PLANT ASSEMBLER Historical Provider LAB - PATHOLOGY/C YTOLOGY ORDERABLES Care Teams Front End Application Developer Relationship Specialty Start Date End Date Seble Charles, GUEST HISTORY CLERK-ADDICTION THERAPIST [address] [place] [address] PCP - General Family Medicine 07/30/12
--- OUTSIDE RECORDS SUMMARY | 2024-05-14 01:17 | XMS_ITS | Encounter Summary ---
Author Organization [facility] Address [address] [place] [address] Care Team Providers Care Inpatient Nursing Aide Name Role Phone Rosibel Bhatt MD Primary Care Provider + [phone] Jerson Pino MD Unavailable [phone] Morro Kiser MD Primary Care Provider [phone] Rosibel Bhatt MD Primary Care Provider + [phone] Seble Charles NP Primary Care Provider [phone] Morro Kiser MD Primary Care Provider [phone] Mary Grace Martinez RN Unavailable [phone] Humberto Harman MD Unavailable [phone] Encounter Details Date Type Department Care Team (Late st Contact Info) Description 04/27/2021 MyChart Message Enc [facility] Medical Group Family & Internal Medicine [facility] [address] [place] [address] [place] [address] [place] [address] Elisha Cruz Social History Tobacco Use Types Packs/Day Years [...] please move on to questions 3-9 0 12/21/2020 Education Answer Date Recorded What is the [...] have Coronavirus / COVID-19? No / Unsure 04/25/2021 11:43 AM THEATRICAL TROUPER documented as of this encounter Functional Status * RETIRED Are you deaf or do you have serious difficulty hearing Answer Date of Assessment Author Status No 05/04/2020 4:24 PM THEATRICAL TROUPER Activ e * RETIRED Are you blind or do you have serious difficulty seeing, even when wearing glasses? Answer Date of Assessment Author Status No 05/04/2020 4:24 PM THEATRICAL TROUPER Activ e * Do you have serious difficulty walking or climbing stairs? Answer Date of Assessment Author Status No 05/04/2020 4:24 PM THEATRICAL TROUPER Delfina Gandara RN Active * Do you have difficulty dressing or bathing? Answer Date of Assessment Author Status No 05/04/2020 4:24 PM THEATRICAL TROUPER Delfina Gandara RN Active * Because of [...] Date Author Status No 05/04/2020 4:24 PM Delfina Villalpando RN Active documented in this encounter Progress Notes * Katie Temple RN - 04/28/2021 11:50 AM CST Pt rescheduled appt yesterday TRICAL TROUPER documented in this encounter Plan of Treatment Upcoming Encounters Date Type Department Care Team (Late st Contact Info) Description 05/29/2024 10:30 AM THEATRICAL TROUPER [facility] [address] [place] [address] Kelsea Jacobo FNP [address] [place], [place] [address] 06/06/2024 11:15 AM THEATRICAL TROUPER Office Visit [facility] THREE [facility], [address] [address] Emilia Proctor PA-C Three [facility] [address] [place], [place] [address] 07/14/2024 2:40 PM CDT Allied Health/Nurse Visit [facility] THREE [facility], [facility] [address] [place], [place] [address] Humberto Harman MD [facility]. [facility] [address] [place] [address] documented as of this encounter Goals Goal Patient Goal Type Associated Problems Recent Progress Patient-Stated? Author Health - patient able to perform ADLs independently General No Concepcion Lipscomb, DRY ICE MAKER documented as of this encounter Visit Diagnoses Not on filedocumented in this encounter Additional Health Concerns Assessment Noted Time PHQ-9 Depression Total Score: 0 12/22/19 21 10:11 AM CDT documented as of this encounter Care Teams Inpatient Nursing Aide Relationship Specialty Start Date End Date Rosibel Bhatt MD PCP - General INTERNAL MEDICINE 06/07/17 05/08/22 [place] [address] [place] [address] PCP - General FAMILY PRACTICE 05/25/22 03/07/23 [place] [address] [place] [address] PCP - General INTERNAL MEDICINE 05/18/22 05/24/22 Seble Charles NP [address] [place] [address] PCP - General NURSE PRACTITIONER 03/08/23 03/19/23 [place] [address] [place] [address] PCP - General FAMILY PRACTICE 03/20/23 Jerson Pino MD [facility] [address] [place], [place] [address] Demetria Marine Fuel Dock Attendant CARDIOVASCULAR DISEASE 06/29/17 Mary Grace Martinez, RN [address] [place] [address] Relationship Counselor (Ambulatory) REGISTERED NURSE 07/17/23 08/05/23 Humberto Harman MD [facility] [address] [place], [place] [address] Consulting Physician CARDIOVASCULAR DISEASE 04/17/24 documented as of this encounter
--- OUTSIDE RECORDS SUMMARY | 2024-05-14 01:17 | XMS_ITS | Encounter Summary ---
Author Organization [facility] Address Formerly [facility], [facility] [place] [address] Care Team Providers Care Sumo Wrestler Name Role Phone Jerson Pino MD Unavailable [phone] Morro Kiser MD Primary Care Provider [phone] Humberto Harman MD Unavailable [phone] Encounter Details Date Type Department Care Team (Late st Contact Info) Description 03/21/2024 Fuisz Mediat Message Enc [facility] Medical Group Family & Internal Medicine [facility] [address] [place] [address] [place] [id number] [place] [address] Amiodorone/Pacerone Social History Tobacco Use Types Packs/Day Years Used Date Smoking Tobacco: Never Passive Smoke Exposure: Never Smokeless Tobacco: Never Comments:na Alcohol Use [...] materials from doctor or pharmacy Never 04/11/2023 [facility] Utilities Answer Date Recorded In the past 12 months has th e electric, gas, oil, or water [employer] threatened to shut off services in your [...] Date Recorded Patient Health Questionnaire-2 Score 0 07/25/2023 [facility] - Occupational Stress Questionnaire Answer Date Recorded [...] place to sleep or slept in a skilled nursing (including now)? No 10/29/2022 Housing Stability Vital Sign Answer Yang e Recorded In the last 12 months, was t here a time when you were not able to pay the mortgage or rent on time? No 07/17/2023 In the past 12 months, how m any times have you moved where you were living? 1 07/17/2023 At any time in the past 12 m [facility], were you homeless or living in a skilled nursing (including now)? 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 Answer Date of Assessment Author Status No 07/17/2023 3:00 AM Brittany Goldman RN Active * Do you have serious difficulty walking or climbing stairs? Answer Date of Assessment Author Status No 07/17/2023 3:00 AM Brittany Goldman RN Active * Do you have difficulty dressing or bathing? Answer Date of Assessment Author Status No 07/17/2023 3:00 AM Brittany Goldman RN Active * Because of a physical, mental, or emotional condition, do you have difficulty doing errands alone such as visiting a doctor's office or shopping? Answer Date of Assessment Author Status No 07/17/2023 3:00 AM Brittany Goldman RN Active documented as of this encounter Mental Status * Because of a physical, mental, or emotional condition, do you have serious difficulty concentrating, remembering, or making decisions? Answer Entry Date Author Status No 07/17/2023 3:00 AM Brittany Goldman RN Active documented in this encounter Progress Notes * AMANDA Malloy - 03/24/2024 3:14 PM CST Its the generic version. Med works the same. CIPAL COURT MAGISTRATE * Ayana Banda RN - 03/21/2024 2:24 PM CST [address] MAGISTRATE documented in this encounter Plan of Treatment Upcoming Encounters Date Type Department Care Team (Late st Contact Info) Description 05/29/2024 10:[address] MAGISTRATE [facility] [address] [place] [address] Kelsea Jacobo FNP 3 [facility] [address] [place], [place] [id number] 06/06/2024 11:[address] MAGISTRATE [facility] THREE [facility] [place] [address] [place], [place] [phone] Emilia Proctor PA-C Three [facility] [address] [place] [address] 07/14/2024 2:40 PM CDT Allied Health/Nurse [facility] [address] [place] [address] Humberto aHrman MD Three [facility]. [address] [address] documented as of this encounter Goals Goal Patient Goal Type Associated Problems Recent Progress Patient-Stated? Author Health - patient able to perform ADLs independently General No Concepcion Lipscomb, WEBFED OFFSET PRESS OPERATOR Family - family caregiver with be involved in care transitions and discharge planning Lifestyle No Ignacio Hernandez, RN documented as of this encounter Visit Diagnoses Not on filedocumented in this encounter Additional Health Concerns Assessment Noted Time PHQ-9 Depression Total Score: 4 04/26/19 23 9:[address] MAGISTRATE documented as of this encounter Care Teams Sumo Wrestler Relationship Specialty [place] [address] [place] [address] PCP - General FAMILY PRACTICE 03/20/23 Jerson Pino MD [facility]. [address] [address] Casa Supervisor Electronics Testing CARDIOVASCULAR DISEASE 06/29/17 Humberto Harman MD [facility]. [facility] [address] [place], [place] [address] Consulting Physician CARDIOVASCULAR DISEASE 04/17/24 documented as of this encounter
--- OUTSIDE RECORDS SUMMARY | 2024-05-14 01:17 | XMS_ITS | Encounter Summary ---
Author Organization [facility] Address [address] [place] [address] Care Team Providers Care Airplane Dispatch Clerk Name Role Phone Rosibel Bhatt MD Primary Care Provider [phone] Jerson Pino MD Unavailable [phone] Morro Kiser MD Primary Care Provider [phone] Rosibel Bhatt MD Primary Care Provider + [phone] Seble Charles NP Primary Care Provider [phone] Morro Kiser MD Primary Care Provider [phone] Mary Grace Martinez RN Unavailable [phone] Humberto Harman MD Unavailable [phone] Encounter Details Date Type Department Care Team (Late st Contact Info) Description 07/10/2017 [facility], [address] [address] Robin Francis MA Social History Tobacco Use Types Packs/Day Years Used Date Smoking Tobacco: Never Alcohol Use Standard Drinks/Week Comments No 0 (1 standard drink = 0.6 oz pur e alcohol) Comments Unknown Sex and Gender Information Value Date Recorded Sex Assigned at Female 10/09/2018 7:56 AM CDT Legal Sex Female 6:54 PM CDT Gender Identity Female 10/09/2018 7:56 AM CDT Sexual Orientation Straight 10/09/2018 7: 56 AM CDT documented as of this encounter Plan of Treatment Upcoming Encounters Date Type Department Care Team (Late st Contact Info) Description 05/29/2024 10:30 AM RETAIL LOSS PREVENTION SPECIALIST Office Visit [facility] [address] [place] [address] Kelsea Jacobo FNP 3 [facility] [address] [place], [place] [address] 06/06/2024 11:15 AM RETAIL LOSS PREVENTION SPECIALIST Office Visit [facility] THREE [facility], [facility] [address] [place] [address] Emilia Proctor PA-C Three [facility] [address] [place], [place] [address] 07/14/2024 2:40 PM CDT Allied Health/Nurse Visit [facility] THREE [facility], [facility] [address] [place], [place] [address] Humberto Harman MD Three [facility]. [facility] [address] [place], [place] [address] documented as of this encounter Procedures Procedure Name Priority Date/Time Associated Diagnosis Comments FOLATE (OUTSIDE LAB) Routine 01/04/2018 CBC (OUTSIDE LAB) Routine 01/04/2018 VITAMIN B-12 Routine 01/04/2018 IRON BINDING TEST Routine 01/04/2018 THYROID STIM HORMONE TSH Routine 01/04/2018 IRON Routine 01/04/2018 CBC (OUTSIDE LAB) Routine 10/09/2017 COMPREHENSIVE METABOLIC PANEL Routine 10/09/2017 LIPID PANEL Routine 10/09/2017 THYROID STIM HORMONE TSH Routine 10/09/2017 THYROID STIM HORMONE TSH Routine 12/12/2016 CBC (OUTSIDE LAB) Routine 06/12/2016 COMPREHENSIVE METABOLIC PANEL Routine 06/12/2016 LIPID PANEL Routine 06/12/2016 THYROID STIM HORMONE TSH Routine 06/12/2016 documented in this encounter Results * THYROID STIM HORMONE, TSH (01/04/2018) TSH 2.158 01/04/2018 [facility] Final Result * FOLATE (OUTSIDE LAB) (01/04/2018) FOLATE >20.0 01/04/2018 [facility] Abstract LAB-OUTSIDE/ABSTRACTED Final Result * VITAMIN B-12 (01/04/2018) VITAMIN B12 S/P/B 784 01/04/2018 [facility] Final Result * IRON BINDING TEST (01/04/2018) IRON BINDING CAPACITY 372 01/04/2018 [facility] Final Result * IRON (01/04/2018) IRON 105 01/04/2018 [facility] Final Result * CBC (OUTSIDE LAB) (01/04/2018) WBC 11.0 HGB 12.3 HCT 37.1 PLT 248 01/04/2018 [facility] Abstract LAB-OUTSIDE/ABSTRACTED Edite d Result - Final * THYROID STIM HORMONE, TSH (10/09/2017) Pathologist [facility] TSH 3.564 10/09/2017 [facility] Final Result * LIPID PANEL (10/09/2017) Pathologist [facility] CHOLESTEROL 175 HDL 72 TRIGLYCERIDES 104 NON HDL CHOLESTEROL 103 LDL (CALCULATED) 82.2 10/09/2017 [facility] Final Result * COMPREHENSIVE METABOLIC PANEL (10/09/2017) Pathologist [facility] SODIUM S/P/B 141 POTASSIUM S/P/B 3.9 CO2 28.9 CHLORIDE S/P/B 105 GLUCOSE 97 mg/dL CALCIUM S/P/B 8.9 BUN 15 CREATININE S/P/B 0.90 0.5 - 1.0 EGFR AFR. AMER. 72 <=90 EGFR NON-AFR. AMER. 62 <=90 ALKALINE PHOSPHATASE S/P/B 79 ALT 26 AST 34 BILIRUBIN TOTAL S/P/B 0.3 ALBUMIN S/P/B 4.2 3.5 - 5.0 TOTAL PROTEIN S/P/B 7.1 10/09/2017 [facility] Final Result * CBC (OUTSIDE LAB) (10/09/2017) Pathologist [facility] WBC 9.1 HGB 12.0 HCT 37.0 PLT 237 10/09/2017 [facility] Abstract LAB-OUTSIDE/ABSTRACTED Final Result * THYROID STIM HORMONE, TSH (12/12/2016) TSH 2.61 12/12/2016 [facility] Final Result * CBC (OUTSIDE LAB) (06/12/2016) Pathologist [facility] WBC 6.7 HGB 12.3 HCT 37.5 PLT 228 06/12/2016 [facility] Abstract LAB-OUTSIDE/ABSTRACTED Final Result * THYROID STIM HORMONE, TSH (06/12/2016) Pathologist [facility] TSH 3.72 06/12/2016 us [facility] Final Result * LIPID PANEL (06/12/2016) Pathologist [facility] CHOLESTEROL 191 HDL 73 TRIGLYCERIDES 79 LDL (CALCULATED) 102.2 06/12/2016 [facility] Final Result * COMPREHENSIVE METABOLIC PANEL (06/12/2016) Pathologist [facility] SODIUM S/P/B 143 POTASSIUM S/P/B 4.9 CO2 28 CHLORIDE S/P/B 106 GLUCOSE 99 mg/dL CALCIUM S/P/B 9.9 BUN 16 CREATININE S/P/B 0.81 0.5 - 1.0 EGFR NON-AFR. AMER. >60 <=90 ALKALINE PHOSPHATASE S/P/B 92 ALT 27 AST 39 BILIRUBIN TOTAL S/P/B 0.4 ALBUMIN S/P/B 4.5 3.5 - 5.0 TOTAL PROTEIN S/P/B 7.2 06/12/2016 [facility] Final Result documented in this encounter Visit Diagnoses Not on filedocumented in this encounter Care Teams Airplane Dispatch Clerk Relationship Specialty Start Date End Date Rosibel Bhatt MD PCP - General INTERNAL MEDICINE 06/07/17 05/08/22 [place] [address] [place] [address] PCP - General FAMILY PRACTICE 05/25/22 03/07/23 [place] [address] [place] [address] PCP - General INTERNAL MEDICINE 05/18/22 05/24/22 Seble Charles NP [address] [place] [address] PCP - General NURSE PRACTITIONER 03/08/23 03/19/23 [place] [address] [place] [address] PCP - General FAMILY PRACTICE 03/20/23 Jerson Pino MD [address] [address] Demetria Asphalt Raker CARDIOVASCULAR DISEASE 06/29/17 Mary Grace Martinez, RN [address] [place] [address] Events Specialist (Ambulatory) REGISTERED NURSE 07/17/23 08/05/23 Humberto Harman MD [address] [address] Consulting Physician CARDIOVASCULAR DISEASE 04/17/24 documented as of this encounter
--- OUTSIDE RECORDS SUMMARY | 2024-05-14 01:17 | XMS_ITS | Encounter Summary ---
Author Organization [facility] Address [address] [place] [address] Care Team Providers Care Hydrometeorology Teacher Name Role Phone Jerson Pino MD Unavailable [phone] Morro Kiser MD Primary Care Provider [phone] Seble Charles NP Primary Care Provider [phone] Morro Kiser MD Primary Care Provider [phone] Mary Grace Martinez RN Unavailable [phone] Humberto Harman MD Unavailable [phone] Encounter Details Date Type Department Care Team (Late st Contact Info) Description 02/27/2023 payleven Message Enc [facility] [address] [place] [address] [employer], [facility] Provider Patient amendment request Social History Tobacco Use Types Packs/Day [...] Recorded Patient Health Questionnaire-2 Score 0 08/31/2022 [facility] - Occupational Stress [...] place to sleep or slept in a detention (including now)? 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 [address] [place] [id number] Kelsea Jacobo FNP [address] [place] [address] [address] [place], [place] [address] 06/06/2024 11:15 AM DEPARTMENT MANAGER [facility] [address] [place] [address] Emilia Proctor PA-C [facility] [address] [place], [place] [address] 07/14/2024 2:40 PM CDT Allied Health[facility] [address] [place], [place] [address] Humberto Harman MD [facility]. [facility] [address] [place], [place] [id number] documented as of this encounter Goals Goal Patient Goal Type Associated Problems Recent Progress Patient-Stated? Author Health - patient able to perform ADLs independently General No Concepcion Lipscomb, MULTIFOCAL BUTTON INSPECTOR Family - family caregiver with be involved in care transitions and discharge planning Lifestyle No Ignacio Hernandez, RN documented as of this encounter Visit Diagnoses Not on filedocumented in this encounter Additional Health Concerns Assessment Noted Time PHQ-9 Depression Total Score: 4 04/26/19 23 9:20 AM DEPARTMENT MANAGER documented as of this encounter Care Teams Hydrometeorology Teacher Relationship Specialty [place] [address] [place] [address] PCP - General FAMILY PRACTICE 05/25/22 03/07/23 Seble Charles NP [address] [place] [address] PCP - General NURSE PRACTITIONER 03/08/23 03/19/23 [place] [address] [place] [address] PCP - General FAMILY PRACTICE 03/20/23 Jerson Pino MD [facility]. [address] [place], [place] [address] [employer] Specialist CARDIOVASCULAR DISEASE 06/29/17 Mary Grace Martinez, RN [address] [place] [address] Poultry Pinner (Ambulatory) REGISTERED NURSE 07/17/23 08/05/23 Humberto Harman MD Three [facility]. [address] [place], [place] [address] Consulting Physician CARDIOVASCULAR DISEASE 04/17/24 documented as of this encounter
--- OUTSIDE RECORDS SUMMARY | 2024-05-14 01:17 | XMS_ITS | Referral Summary ---
Author Organization [facility] [employer] Address [address] [place] [address] Care Team Providers Care Wafer Fabrication Technician Name Role Phone AraceliSeble Sue EUGENE-STOCK SHAPER Primary Care Provider [phone] Source Comments [facility],non-owned Affiliates and Associated Physician Practices is amultiple site organization consisting of ambulatory clinics and hospital sitesin [place], [place], [place] and [place]. This disclosure is being madepursuant to the Care Everywhere program and may not contain all information available regarding this patient. Last updated 17.[facility] [employer] Allergies Active Allergy Reactions Criticality Noted Date [...] Active azelastine (ASTELIN) 0.1 % nasal spray [place] 1 [place] into each nostril 2 times daily 1 [...] tablet by mouth once daily 11/24/2022 Active [place]-3 Fatty Acids (fish oil) 1000 MG capsule [...] Zoster Hzv Vacc Recombinant Inj Im 11/10/2020 Social History Tobacco Use Types Packs/Day Years [...] and heating? Not hard at all 03/01/2023 [facility] - Occupational Stress [...] place to sleep or slept in a care home (including now)? No 03/01/2023 Sex and Gender Information Value Date Recorded Sex Assigned at Not on file Gender Identity Not on file Sexual Orientation Not on file Last Filed Vital Signs Vital Sign Reading Time Taken Comments Blood Pressure 108/49 03/15/2023 10:51 AM PROCEDURE WRITER Pulse 57 03/15/2023 10:51 AM PROCEDURE WRITER Temperature 36.4 ??C (97.5 ??F) 03/15/2023 10:[address] Respiratory Rate 20 03/15/2023 10:51 AM PROCEDURE WRITER Oxygen Saturation 91% 03/15/2023 10:51 AM PROCEDURE WRITER Inhaled Oxygen Concentration - - Weight 53 kg (116 lb 12.8 oz) 03/15/2023 6:13 AM PROCEDURE WRITER Height 157.5 cm (5' 2 ) 03/13/2023 9:00 AM PROCEDURE WRITER Body Mass Index 21.36 03/13/2023 9:00 AM PROCEDURE WRITER Functional Status Functional Status Response Date of Assess ment Is person deaf or have serious hearing difficult y? No 03/01/2023 Is person blind or have serious difficulty seein g? No 03/01/2023 Does person have serious dif ficulty walking/climbing stairs? Yes 03/01/2023 Does person have difficulty dressing/bathing? Ye s 03/01/2023 Does person have difficulty doing errands alone? Yes 03/01/2023 Cognitive Status Response Date of Assessm ent Does person have difficulty concentrating/remembering/making decisions? Yes 03/01/2023 Plan of Treatment Not on file Medical Devices Implanted Type Area Consulting Nurse Device Identifier Shelf Expiration Date Model / Serial / Lot Env Defib 3.3x2.9in Aigisrx Icd Tyrx Lg - [id number] Implanted:Qty: 1 on 03/12/2023 by Monty Meyrs MD at [facility] [employer] [id number] 12/09/2023 [id number] / [id number] / [id number] Procedures Procedure Name Priority Date/Time Associated Diagnosis [...] on same machine if possible. Seble Charles APRN-STOCK SHAPER DEXA ORDERABLES from Last 3 Months or Most Recently Relevant to Health Maintenance Administered Medications Advance Directives * Full Code (Latest Code Status on File) Date Activated Date Inactivated Comments 03/01/2023 3:35 PM 03/15/2023 3:28 PM Care Teams Wafer Fabrication Technician Relationship Specialty Start Date End Date Seble Charles, CNC MACHINIST 2ND SHIFT-STOCK SHAPER [address] [place] [address] PCP - General Family Medicine 07/30/12
--- OUTSIDE RECORDS SUMMARY | 2024-05-14 01:17 | XMS_ITS | Encounter Summary ---
Author Organization [facility] Address [address] [place] [address] Care Team Providers Care Bi Manager Name Role Phone Rosibel Bhatt MD Primary Care Provider [phone] Jerson Pino MD Unavailable [phone] Morro Kiser MD Primary Care Provider [phone] Rosibel Bhatt MD Primary Care Provider [phone] Seble Charles NP Primary Care Provider [phone] Morro Kiser MD Primary Care Provider [phone] Mary Grace Martinez RN Unavailable [phone] Humberto Harman MD Unavailable [phone] Encounter Details Date Type Department Care Team (Late st Contact Info) Description 08/22/2021 Octonius Message [place] [address] [facility], [facility] Provider stress test results Social History Tobacco Use Types Packs/Day Years [...] please move on to questions 3-9 0 07/18/2021 Education Answer Date Recorded What is the [...] Exposure Response Date Recorded In the last 10 days, have yo u been in contact with someone who was confirmed or suspected to have Coronavirus/COVID-19? No / Unsure 08/22/2021 10:18 AM CDT documented as of this encounter Functional Status * RETIRED Are you deaf or do you have serious difficulty hearing Answer Date of Assessment Author Status No 05/04/2020 4:24 PM COLD ROLL PACKER SHEET IRON Activ e * RETIRED Are you blind or do you have serious difficulty seeing, even when wearing glasses? Answer Date of Assessment Author Status No 05/04/2020 4:24 PM COLD ROLL PACKER SHEET IRON Activ e * Do you have serious difficulty walking or climbing stairs? Answer Date of Assessment Author Status No 05/04/2020 4:24 PM COLD ROLL PACKER SHEET IRON Delfina Gandara RN Active * Do you have difficulty dressing or bathing? Answer Date of Assessment Author Status No 05/04/2020 4:24 PM COLD ROLL PACKER SHEET IRON Delfina Gandara RN Active * Because of [...] Villalpando RN Active documented in this encounter Plan of Treatment Upcoming Encounters Date Type Department Care Team (Late st Contact Info) Description 05/29/2024 10:30 AM COLD ROLL PACKER SHEET IRON Office Visit [facility] [address] [place] [address] Kelsea Jacobo FNP 3 [facility] [address] [place] [address] 06/06/2024 11:15 AM COLD ROLL PACKER SHEET IRON [facility], [facility] [address] [place] [address] Emilia Proctor PA-C Three [facility] [address] [place], [place] [address] 07/14/2024 2:40 PM CDT [facility], [facility] [address] [place], [place] [address] Humberto Harman MD Three [facility]. [facility] [address] [place], [place] [address] documented as of this encounter Goals Goal Patient Goal Type Associated Problems Recent Progress Patient-Stated? Author Health - patient able to perform ADLs independently General No Concepcion Lipscomb, RECONCILING CLERK documented as of this encounter Visit Diagnoses Not on filedocumented in this encounter Additional Health Concerns Assessment Noted Time PHQ-9 Depression Total Score: 0 12/22/19 21 10:11 AM CDT documented as of this encounter Care Teams Bi Manager Relationship Specialty Start Date End Date Rosibel Bhatt MD PCP - General INTERNAL MEDICINE 06/07/17 05/08/22 [place] [address] [place] [address] PCP - General FAMILY PRACTICE 05/25/22 03/07/23 [place] [address] [place] [address] PCP - General INTERNAL MEDICINE 05/18/22 05/24/22 Seble Charles NP [address] [place] [address] PCP - General NURSE PRACTITIONER 03/08/23 03/19/23 [place] [address] [place] [address] PCP - General FAMILY PRACTICE 03/20/23 Jerson Pino MD Three [facility]. [facility] [address] [place] [address] [place]mer Finish Repairer CARDIOVASCULAR DISEASE 06/29/17 Mary Grace Martinez, RN [address] [place], [place] [address] Safe Technician (Ambulatory) REGISTERED NURSE 07/17/23 08/05/23 Humberto Harman MD Three [facility]. [facility] [address] [place], [place] [address] Consulting Physician CARDIOVASCULAR DISEASE 04/17/24 documented as of this encounter
[2024-05-14] MEDS: LACTATED RINGERS 1,000 ML 30 ML IV CONT ×2 (06:50→09:02)
--- NOTE | 2024-05-14 07:03 | WPDANESEPPF ---
Anes - Initial Pre Proc Eval Procedure: Operation Date: 05/14/24 07:30 Proposed Procedures p Right L5-S1 Aravind Laminectomy - Pam Marti MD Date/Time: 05/14/24 07:03 Surgeon: Pam Marti MD Pre Op Diagnosis: lumbar radiculopathy Patient Data Age: 84 Gender: F Height: 1.57 m Weight: 48.2 kg Last Vital Signs Temp 37.0 C 05/01/24 11:56 Pulse 67 05/01/24 11:56 Resp 16 05/01/24 11:56 BP 159/76 H 05/01/24 11:56 Pulse Ox 100 05/01/24 11:56 O2 Del Method Room Air 05/01/24 11:56 Allergies Allergy/AdvReac Type Severity Reaction Status Date / Time adhesive tape Allergy RASH, SKIN Verified 05/01/24 11:40 REDNESS lamotrigine Allergy Rash Verified 05/01/24 11:40 propranolol Allergy mouth Verified 05/01/24 11:40 blisters atorvastatin (From Lipitor) AdvReac myalgias Verified 05/01/24 11:40 baclofen AdvReac Nausea and Verified 05/01/24 11:40 Vomiting cilostazol (From Pletal) AdvReac Palpitation Verified 05/01/24 11:40 s hydrocodone AdvReac syncope Verified 05/01/24 11:40 tizanidine AdvReac Hallucinati Verified 05/01/24 11:40 ng Home Medications ?Medication ?Instructions ?Recorded ?Confirmed ?Type alpha lipoic acid 200 mg capsule 200 mg PO BID 01/02/24 05/01/24 History amiodarone 200 mg tablet 200 mg PO QAM 01/02/24 05/14/24 History ascorbate calcium (vitamin C) 500 500 mg PO DAILY 01/02/24 05/14/24 History mg capsule cholecalciferol (vitamin D3) 10 10 mcg PO DAILY 01/02/24 05/14/24 History mcg (400 unit) capsule cyanocobalamin (vitamin B-12) 500 500 mcg sublingual DAILY 01/02/24 05/14/24 History mcg sublingual tablet ibuprofen 200 mg tablet 400 mg PO Q6H PRN Pain 01/02/24 05/14/24 History mirabegron 25 mg tablet,extended 25 mg PO DAILY 01/02/24 05/14/24 History release 24 hr (Myrbetriq) naproxen sodium 220 mg capsule 220 mg PO BID PRN Pain 01/02/24 05/14/24 History (Aleve) potassium chloride 20 mEq 20 meq PO DAILY 01/02/24 05/01/24 History tablet,extended release primidone 50 mg tablet 25 mg PO HS 01/02/24 05/14/24 History tramadol 50 mg tablet 50 mg PO Q6-8H PRN Pain 01/02/24 05/14/24 History zolpidem 10 mg tablet 10 mg PO HS 01/02/24 05/01/24 History magnesium 200 mg tablet 200 mg PO DAILY 02/07/24 05/14/24 History levothyroxine 50 mcg tablet 50 mcg PO DAILY 04/07/24 05/14/24 History albuterol 90 mcg/actuation aerosol 90 mcg inhalation Q4-6H PRN 05/01/24 05/01/24 History inhaler shortness of breath or wheezing diphenhydramine HCl 25 mg capsule 25 mg PO Q6-8H PRN allergy symptoms 05/01/24 05/01/24 History (Benadryl) magnesium salicylate 325 mg tablet 650 mg PO .Q6 PRN pain 05/01/24 05/01/24 History multivitamin (Daily Multi-Vitamin 1 tablet PO DAILY 05/01/24 05/14/24 History tablet) Patient hx anesthesia problems: none Family hx anesthesia problems: none Results Review: All pre-operative results and documents have been reviewed as part of the pre-operative evaluation. [facility] Past Medical History Medical History Osteoporosis History of heart attack Arthritis Allergies Family History Family History Mother Diabetes mellitus Hypertension Sibling Heart disease Unknown Depression Anxiety Grandparent Diabetes mellitus Grandparent Hypertension Heart disease Depression Anxiety Social History Social History Smoking status: Unknown if ever smoked Alcohol intake: never Substance use: never Substance use type: does not use Do You Feel Safe in your Home?: Yes Lack of Transportation: No Lack of Food: Never True Current Housing: I Have Housing Concerned About Future Housing: YES Difficulty Paying Gas/Electric Bills: No Difficulty Paying for Meds: No Currently Unemployed: No Education: Trade/Vocational Certificate Difficulty w/ Childcare or Family Care: No Anes - Eval Final PreProcedure Day of Procedure 05/14/24 07:03 Patient weight: normal Heart: regular rate and rhythm Lungs: clear to auscultation Airway: Mallampati scale class II Neurological: alert and oriented Last oral intake: >/= 8 hours ASA classification: IV Emergent: no Anesthetic plan: proceed Anesthesia type and monitoring: general ETT and standard monitoring Results Review: All pre-operative results and documents have been reviewed as part of the pre-operative evaluation. Informed Consent: The patient's anesthetic plan and its attendant risks and benefits were discussed with the patient/family/POA. Questions were solicited and answers provided to the satisfaction of the patient/family/POA.
--- NOTE | 2024-05-14 07:13 | WPDHPUPDATE1 ---
History and Physical Update Update Date/Time: 05/14/24 07:13 History and Physical has been reviewed, including an updated exam of the patient. There are NO changes in the patient's condition. Risks, benefits, and alternatives have been discussed and questions answered. Patient agrees to proceed with procedure.
--- NOTE | 2024-05-14 07:14 | P.HP_ITS ---
H&P: HPI History of Present Illness Date/Time: 05/14/24 07:14 Chief Complaint: Right leg pain Narrative: From 11/21: Ms. Cruz is an 83-year-old female with history of atrial fibrillation, myocardial infarction, mitral valve prolapse, and pacemaker who presents for evaluation back and right leg pain. About a year and half ago, she started developing pain that she says starts in the right heel, radiates up the back of the calf, radiates into the anterior entire aspect of the thigh, and then up the hip to the shoulder blade. She has pain across her lower back. She denies any obvious inciting event. Her pain is constant and does not necessarily worsen or improve with any specific factors. She has tried tramadol, pycw-kdu-qtiojxy medications, gabapentin, lotions, and other topical treatments without improvement. She has never had physical therapy for her back. She has had 3 previous SI joint injections with Dr. Ferreira at [facility] in 2020. She also reports issues with frequent falls and balance. She reports 6 months of some weakness in the left upper extremity as well as difficulty opening jars and gripping things with her left hand. 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 Humberto Harman. she has a pacemaker that was put in around 2022. She apparently had a complication with migration of 1 of the leads that punctured her lung, and she was hospitalized at [facility] for a couple weeks. She is supposed to take Xarelto but does not do that. She believes that she is able to get an MRI with her pacemaker. She notably had an EMG performed by Dr. Alegria at [facility] in October which shows evidence of sensory motor axonal polyneuropathy without evidence of a lumbosacral radiculopathy. From 02/06: She reports that her pain has become more intense. It radiates from heel up the back of her leg to the buttock and her back. She did not have any improvement with increasing the gabapentin. She also did not get any benefit from the Robaxin, so she has stopped both these medications. She denies any left-sided symptoms. At her last visit, she reported some issues with her left arm, but she denies these issues today. From 04/03: She has had 2 sets of epidural steroid injections at L5-S1. The 1st injection was somewhat helpful for her back pain but did not help her leg pain. today, she describes more pain starting from the heel, radiating up the back of the leg, encompassing the entire right thigh, and radiating into the back and right side of her abdomen. She also reports paresthesias in both feet and numbness in the bottom of her feet. She has poor balance and has fallen several times because of this. Review of Systems Review of Systems: All systems reviewed & are unremarkable except as noted in HPI and below PMFSH Past Medical History Medical History Osteoporosis History of heart attack Arthritis Allergies Family History Family History Mother Diabetes mellitus Hypertension Sibling Heart disease Unknown Depression Anxiety Grandparent Diabetes mellitus Grandparent Hypertension Heart disease Depression Anxiety Social History Social History Smoking status: Unknown if ever smoked Alcohol intake: never Substance use: never Substance use type: does not use Do You Feel Safe in your Home?: Yes Lack of Transportation: No Lack of Food: Never True Current Housing: I Have Housing Concerned About Future Housing: YES Difficulty Paying Gas/Electric Bills: No Difficulty Paying for Meds: No Currently Unemployed: No Education: Trade/Vocational Certificate Difficulty w/ Childcare or Family Care: No Meds Home Medications and Allergies Home Medications ?Medication ?Instructions ?Recorded ?Confirmed ?Type alpha lipoic acid 200 mg capsule 200 mg PO BID 01/02/24 05/01/24 History amiodarone 200 mg tablet 200 mg PO QAM 01/02/24 05/14/24 History ascorbate calcium (vitamin C) 500 500 mg PO DAILY 01/02/24 05/14/24 History mg capsule cholecalciferol (vitamin D3) 10 10 mcg PO DAILY 01/02/24 05/14/24 History mcg (400 unit) capsule cyanocobalamin (vitamin B-12) 500 500 mcg sublingual DAILY 01/02/24 05/14/24 History mcg sublingual tablet ibuprofen 200 mg tablet 400 mg PO Q6H PRN Pain 01/02/24 05/14/24 History mirabegron 25 mg tablet,extended 25 mg PO DAILY 01/02/24 05/14/24 History release 24 hr (Myrbetriq) naproxen sodium 220 mg capsule 220 mg PO BID PRN Pain 01/02/24 05/14/24 History (Aleve) potassium chloride 20 mEq 20 meq PO DAILY 01/02/24 05/01/24 History tablet,extended release primidone 50 mg tablet 25 mg PO HS 01/02/24 05/14/24 History tramadol 50 mg tablet 50 mg PO Q6-8H PRN Pain 01/02/24 05/14/24 History zolpidem 10 mg tablet 10 mg PO HS 01/02/24 05/01/24 History magnesium 200 mg tablet 200 mg PO DAILY 02/07/24 05/14/24 History levothyroxine 50 mcg tablet 50 mcg PO DAILY 04/07/24 05/14/24 History albuterol 90 mcg/actuation aerosol 90 mcg inhalation Q4-6H PRN 05/01/24 05/01/24 History inhaler shortness of breath or wheezing diphenhydramine HCl 25 mg capsule 25 mg PO Q6-8H PRN allergy symptoms 05/01/24 05/01/24 History (Benadryl) magnesium salicylate 325 mg tablet 650 mg PO .Q6 PRN pain 05/01/24 05/01/24 History multivitamin (Daily Multi-Vitamin 1 tablet PO DAILY 05/01/24 05/14/24 History tablet) Allergies Allergy/AdvReac Type Severity Reaction Status Date / Time adhesive tape Allergy RASH, SKIN Verified 05/01/24 11:40 REDNESS lamotrigine Allergy Rash Verified 05/01/24 11:40 propranolol Allergy mouth Verified 05/01/24 11:40 blisters atorvastatin (From Lipitor) AdvReac myalgias Verified 05/01/24 11:40 baclofen AdvReac Nausea and Verified 05/01/24 11:40 Vomiting cilostazol (From Pletal) AdvReac Palpitation Verified 05/01/24 11:40 s hydrocodone AdvReac syncope Verified 05/01/24 11:40 tizanidine AdvReac Hallucinati Verified 05/01/24 11:40 ng Vital Signs Vital Signs - 24 hr 05/14/24 05:55 Temperature 97.7 F Pulse Rate 60 Respiratory Rate 16 Blood Pressure 160/68 H Pulse Oximetry 100 Oxygen Delivery Room Air Exam Narrative: Significant dysesthesias to touch throughout the right leg Worsened pain with straight leg raise Unless otherwise stated above, the patient's physical exam is as follows: General: -Well developed and well nourished. No a cute distress. Cooperative with exam. Mental status: -Awake and oriented to person, place, an d time. Affect is normal. -Fund of knowledge appropriate -Recent and remote memory are intact -Attention span and concentration appear normal -Language function is normal -There is no evidence of aphasia in conv ersational speech. Cranial nerves: -CN II: Visual almanzar full to bedside co nfrontation -CN III, IV, : Pupils equal, round, an d reactive to light; extraocular movements, no ptosis, no nystagmus -CN V: Facial sensation intact in V1 thr ough V3 distributions -CN VII: Face symmetric -CN VIII: Hearing intact to conversation al speech -CN IX, X: Palate elevates symmetrically ; normal phonation -CN XI: Symmetric full strength of martin ocleidomastoid and trapezius muscles -CN XII: Tongue protrudes midline Integumentary: -No obvious skin lesions or masses Motor: -Muscle tone normal without spasticity o f flaccidity. No atrophy. No fasciculations. -No pronator drift -Right upper extremity: deltoid 5/5, bic eps 5/5, triceps 5/5, wrist extensors 5/5, wrist flexors 5/5, intrinsics 5/5 -Left upper extremity: deltoid 5/5, melissa ps 5/5, triceps 5/5, wrist extensors 5/5, wrist flexors 5/5, intrinsics 5/5 -Right lower extremity: iliopsoas 5/5, q uadriceps 5/5, hamstrings 5/5, tibialis anterior 5/5, gastroc-soleus 5/5, EHL 5/5 -Left lower extremity: iliopsoas 5/5, qu adriceps 5/5, hamstrings 5/5, tibialis anterior 5/5, gastroc-soleus 5/5, EHL 5/5 Sensory: -Intact to light touch throughout -Normal proprioception throughout Reflexes: -1-2+ DTR's throughout -No Fleming's, clonus, or Babinski bilat erally Musculoskeletal: -Lumbar spine: no tenderness to palpatio n, no pain, and normal lumbosacral spine movements -Zzvvcbqv-zfd-vqotf test negative -Hip: normal range of motion, no crepitu s bilaterally. No pain reproduced on CHARMAINE or FAIR testing bilaterally -Knee: no instability, subluxation or la xity, and no crepitus bilaterally Assessment and Plan Assessment and plan (1) Lumbar radiculopathy: Code(s): M54.16 - Radiculopathy, lumbar region Status: Acute Plan Ms. Cruz is an 84-year-old female with history of pacemaker, myocardial infarction, and atrial fibrillation who presents with 18 months of burning pain in the right leg to the ankle which has been resistant to physical therapy multiple floa-tqh-coeyxeg and prescription medications, and now 2 epidural steroid injections. On physical exam, she does have significant dysesthesias to light touch throughout the right leg and has pain with manipulation of her leg. 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 The description of her symptoms today does not fit in S1 dermatome as convincingly as her previous appointments have suggested, but she certainly does have symptoms in an S1 distribution. Given the severe lateral recess stenosis on her myelogram, I have offered her surgery in the form of a right L5-S1 hemilaminectomy. We discussed surgery in detail including risks, expected recovery, and restrictions after surgery. She would like to proceed as discussed.
[2024-05-14] MEDS: ceFAZolin 2 GM/D5W 50 ML 2 GM/50 ML BAG IVPB (07:22)
[2024-05-14] MEDS: BUPIVACAINE/EPINEPHRINE 0.5% 30 ML VIAL INFILTRATE (08:09)
--- NOTE | 2024-05-14 09:02 | PM.OP ---
Procedure Note - Brief Procedure Note - Brief Date of procedure: 05/14/24 lumbar radiculopathy Post-op diagnosis: Same Procedure performed: Right L5-S1 hemilaminectomy Surgeon: Pam Marti MD Route Service Manager: Jensen Anesthesia: GETA Findings: Successful lateral recess/foraminal decompression without complication Drains: No Packing: No Pathology: None sent Complications: None Condition: Stable Disposition: PACU
--- NOTE | 2024-05-14 09:11 | P.OP_ITS ---
Procedure Note - Detailed Date of Procedure 05/14/24 Pre-op Diagnosis lumbar radiculopathy Post-op Diagnosis Same Procedure Performed 1. Right L5-S1 hemilaminectomy 2. Use of microscope 3. Use of C-arm Surgeon Pam Marti MD Supervisor Assembly Room Jensen Anesthesia General Description of Procedure The patient was brought to the operating room, and general anesthesia was induced. The patient was placed prone on the Ector frame, and all pressure points were padded. Compression devices were placed on the patient's calves. The skin was cleaned with alcohol. The C-arm was brought onto the field to localize the appropriate disc space and assist with incisional planning. The previous incision was marked. The area was prepped and draped in usual sterile fashion. A time out was conducted, and pre-operative antibiotics were administered. Local anesthesia was injected into the planned incision. A midline skin incision was opened with a 10-blade scalpel, and dissection was carried down with the monopolar cautery to open the fascia on the right side of midline. Once the spinous processes were located, a subperiosteal dissection was performed to expose the lamina on the right, taking care to avoid the facet. A self-retaining retractor was placed. The C-arm was brought in to confirm the co rrect level. The microscope was draped and brought into the field for microsurgical dissection. The high-speed drill was used to thin the right L5 lamina to the ligamentum flavum. A currette was used to separate the ligament from the bone which was then removed with the Kerrison. The ligamentum was then elevated with a currette and removed. A kerrison was passed along the traversing nerve root and followed distally to remove bone into the foramen. A Woodsen was used to verify adequate decompression at the cranial and caudal aspects of the decompression as well as into the foramen. Hemostasis was ensured with the bipolar, surgiflo, and cottonoids, and the area was copiously irrigated. No evidence of CSF leak was noted. The fascia was closed with 0-Vicryl in an interrupted fashion. The soft tissue was again copiously irrigated. The dermis was closed with 2-0 then 3-0 interrupted Vicryl. The skin was closed with 4-0 monocryl. Skin glue was applied. The patient was returned supine on the stretcher, extubated, and transferred to PACU without incident. Billing codes: 91116, 64847 Drains No Packing No Pathology None sent Complications None Condition Stable Disposition PACU [facility] Billing Surgery - Charge Forward: Surgery Billing
[2024-05-14] MEDS: fentaNYL CITRATE INJ (*CRX) 100 MCG/2 ML VIAL 25 MCG IV PUSH (09:37)
--- NOTE | 2024-05-14 12:25 | ADMGEN ---
This patient, Elisha Cruz, was admitted to [facility] Surgery-2. Patient/family oriented to hospital policies and general routines including ID bracelet, bed and alarms, visiting hours, pain management, procedures, bathroom and other care routines, personal items, smoking policy, room service/diet, and visiting hours. Information on how to activate the Rapid Response Team has been discussed. Patient/Family are encouraged to report perceived risks to care and to ask questions if they do not understand what they are told or what they should do. Pt is in Pre op room 10 while waiting for available room on medical floor. Patient will transfer when room available.
[2024-05-14] MEDS: oxyCODONE HCL (*CRX) 5 MG TAB IR PO (12:50)
--- NOTE | 2024-05-14 13:47 | PC.NURSE ---
1347- Patient transported to room 331-02 by stretcher. report called to CAMILO Royal Patient belongings sent with patient.
--- NOTE | 2024-05-14 13:55 | PC.NURSE ---
This patient, Elisha Cruz, was admitted to [facility] Surg Room 331-02. Patient/family oriented to hospital policies and general routines including ID bracelet, bed and alarms, visiting hours, pain management, procedures, bathroom and other care routines, personal items, smoking policy, room service/diet, and visiting hours. Information on how to activate the Rapid Response Team has been discussed. Patient/Family are encouraged to report perceived risks to care and to ask questions if they do not understand what they are told or what they should do.
[2024-05-14] MEDS: ceFAZolin 1 GM/NS 50 ML 1 GM/50 ML BAG IVPB ×2 (15:16→22:13)
--- NOTE | 2024-05-14 16:25 | PC.NURSE ---
On 05/14/24, the student, [Natalia Marina ], provided care and completed [facility] documentation on this patient. I have reviewed the student's documentation and agree with the findings.
[2024-05-14] MEDS: oxyCODONE HCL (*CRX) 5 MG TAB IR 10 MG PO (20:13)
[2024-05-14] MEDS: DOCUSATE SODIUM 100 MG CAPSULE PO (20:14)
[2024-05-14] MEDS: PRIMIDONE 25 MG TABLET PO (20:14)
[2024-05-14] MEDS: ZOLPIDEM TARTRATE (*CRX) 5 MG TABLET 10 MG PO (22:13)
[2024-05-15 04:03] VITALS: BP 142/64; PULSE 61; RESP 18; TEMP 36.5; O2SAT 98
[2024-05-15] MEDS: LEVOTHYROXINE SODIUM 50 MCG TABLET PO (05:40)
[2024-05-15] MEDS: ceFAZolin 1 GM/NS 50 ML 1 GM/50 ML BAG IVPB (05:40)
[2024-05-15 08:03] VITALS: BP 131/60; PULSE 62; RESP 18; TEMP 36.9; O2SAT 99
[2024-05-15 08:16] VITALS: PULSE 64
[2024-05-15] MEDS: DOCUSATE SODIUM 100 MG CAPSULE PO (08:16)
[2024-05-15] MEDS: POTASSIUM CHLORIDE 20 MEQ ER TABLET PO (08:16)
[2024-05-15] MEDS: MAGNESIUM OXIDE 200 MG TABLET PO (08:16)
[2024-05-15] MEDS: AMIODARONE HCL 200 MG TABLET PO (08:16)
[2024-05-15] MEDS: MIRABEGRON 25 MG ER TABLET PO (08:16)
[2024-05-15] MEDS: CYCLOBENZAPRINE HCL 10 MG TABLET PO (08:18)
[2024-05-15] MEDS: oxyCODONE HCL (*CRX) 5 MG TAB IR PO (10:21)
--- NOTE | 2024-05-15 13:17 | WPDNEUROSGPN ---
Progress Note: A&P Assessment and Plan (1) Status post lumbar laminectomy: Code(s): Z98.890 - Other specified postprocedural states Status: Acute Plan -Discharge home today -Wound care and activity precautions reviewed -Follow up with me in clinic in 2 weeks Subjective Date/time seen: 05/15/24 13:17 Interval history: Doing well with some incisional soreness. She states that her leg pain is actually much improved. The paresthesias in her foot have also improved. She has ambulated therapy in the halls without difficulty. She is tolerating oral intake. Review of Systems Review of Systems: All systems reviewed & are unremarkable except as noted in HPI and below Exam Narrative: AOx4 Incision c/d/i full strength in lower extremities Sensation intact to light touch Objective Data Vital Signs Vital Signs: Vital Signs - 24 hr 05/14/24 13:30 05/14/24 13:31 05/14/24 13:55 Temperature 97.7 F Pulse Rate 62 Respiratory Rate 16 Blood Pressure 146/61 H Pulse Oximetry 100 100 99 Oxygen Delivery Room Air 05/14/24 14:00 05/14/24 14:10 05/14/24 15:43 Temperature 97.9 F Pulse Rate 63 Respiratory Rate 14 Blood Pressure 149/60 H 135/69 Pulse Oximetry 97 Oxygen Delivery Room Air 05/14/24 20:03 05/14/24 23:55 05/15/24 04:03 Temperature 97.6 F 97.6 F 97.7 F Pulse Rate 63 69 61 Respiratory Rate 18 18 18 Blood Pressure 135/57 L 140/62 142/64 H Pulse Oximetry 97 98 98 Oxygen Delivery 05/15/24 08:03 05/15/24 08:16 Temperature 98.4 F Pulse Rate 62 64 Respiratory Rate 18 Blood Pressure 131/60 Pulse Oximetry 99 Oxygen Delivery Intake/Output Intake/Output: Intake & Output 05/12/24 05/13/24 05/14/24 05/15/24 23:59 23:59 23:59 23:59 Intake Total 940 170 Balance 940 170 Meds/Results Medications: Active Medications Generic Name Dose Route Start Last Admin Trade Name Freq PRN Reason Stop Dose Admin Acetaminophen 1,000 mg 05/14/24 09:05 Acetaminophen 500 Mg Tablet PO Q6H PRN Mild Pain (1-3) Al Hydrox/Mg Hydrox/Simethicone 20 ml 02/05/25 09:03 Mag Hydrox/Al Hydrox/Simeth 30 Ml Udc PO Q4H PRN Indigestion/Heartburn Albuterol 1 puff 05/14/24 11:23 Albuterol Sulfate (*Sp) Aerosol 1 Puff INHALATION Q4-6H PRN shortness of breath or wheezing Amiodarone HCl 200 mg 05/15/24 09:00 05/15/24 08:16 Amiodarone Hcl 200 Mg Tablet PO 200 mg QAM ASHANTI Administration Bisacodyl 10 mg 05/14/24 09:03 Bisacodyl 10 Mg Suppository RECTAL DAILY PRN Constipation Cyclobenzaprine HCl 10 mg 05/14/24 09:05 05/15/24 08:18 Cyclobenzaprine Hcl 10 Mg Tablet PO 10 mg TID PRN Administration Muscle Spasms Docusate Sodium 100 mg 05/14/24 21:00 05/15/24 08:16 Docusate Sodium 100 Mg Capsule PO 100 mg Q12HR ASHANTI Administration Cefazolin Sodium 1 gm in 50 mls @ 100 mls/hr 05/14/24 15:00 05/15/24 05:40 Ancef 1 Gm/Ns 50 Ml IVPB 05/15/24 14:59 100 mls/hr Q8H ASHANTI Administration Levothyroxine Sodium 50 mcg 05/15/24 06:30 05/15/24 05:40 Levothyroxine Sodium 50 Mcg Tablet PO 50 mcg DAILY@0630 ASHANTI Administration Magnesium Oxide 200 mg 05/15/24 09:00 05/15/24 08:16 Magnesium Oxide 200 Mg Tablet PO 200 mg DAILY ASHANTI Administration Mirabegron 25 mg 05/15/24 09:00 05/15/24 08:16 Mirabegron 25 Mg Er Tablet PO 25 mg DAILY ASHANTI Administration Morphine Sulfate 2 mg 05/14/24 09:05 Morphine Sulfate (*Crx) 2 Mg/Ml Inj IV PUSH Q2H PRN Breakthrough Pain Ondansetron HCl 4 mg 05/14/24 09:03 Ondansetron Inj 4 Mg/2 Ml Vial IV PUSH Q8H PRN Nausea And Vomiting Oxycodone HCl 5 mg 05/14/24 09:05 05/15/24 10:21 Oxycodone Hcl (*Crx) 5 Mg Tab Ir PO 5 mg Q4H PRN Administration Pain Rated 4-6 Oxycodone HCl 10 mg 05/14/24 09:05 05/14/24 20:13 Oxycodone Hcl (*Crx) 5 Mg Tab Ir PO 10 mg Q4H PRN Administration Pain Rated 7-10 Potassium Chloride 20 meq 05/15/24 09:00 05/15/24 08:16 Potassium Chloride 20 Meq Er Tablet PO 20 meq DAILY ASHANTI Administration Primidone 25 mg 05/14/24 21:00 05/14/24 20:14 Primidone 25 Mg Tablet PO 25 mg HS ASHANTI Administration Senna/Docusate Sodium 1 tab 05/14/24 09:03 Senna/Docusate Sodium Tablet PO HS PRN Constipation Zolpidem Tartrate 10 mg 05/14/24 09:06 05/14/24 22:13 Zolpidem Tartrate (*Crx) 5 Mg Tablet PO 10 mg HS PRN Administration Insomnia
--- NOTE | 2024-05-15 14:38 | PCPTNOTE ---
On 05/15/24, the student, ACE Sauceda, provided care and completed [facility] documentation on this patient. I have reviewed the student's documentation and agree with the findings.
== END 2024-05-15 14:15 | disposition home or self-care (01) ==
LOC: ANHSURGERY 05:49 → ANHSUROVER 11:09 → ANH3MEDSUR 13:16
PROVIDERS: PCP Family Medicine; Visit Provider Neurological Surgery
PROC: (CPT 63005; principal; 2024-05-14 07:30)
DX: M54.16 Radiculopathy, lumbar region (principal); R29.6 Repeated falls; I48.91 Unspecified atrial fibrillation; I25.2 Old myocardial infarction; I34.1 Nonrheumatic mitral (valve) prolapse; Z95.0 Presence of cardiac pacemaker
CPT/HCPCS: 63030; 97110; 97165; 97530; 97535; 99199; A9270; J0330; J0690; J1100; J2003; J2405; J2704; J3010; J7120

== ENCOUNTER 2024-05-29 10:46 | Outpatient (CLI) | payer MEDICARE, BC, SELFPAY ==
--- NOTE | ~2024-05-29 | XR_ITS ---
EXAMINATION: XR pelvis 1-2V DATE: 05/29/2024 11:06 INDICATION: Pelvic and perineal pain. TECHNIQUE: An anteroposterior view of the pelvis was obtained on 2 radiographs. COMPARISON: None. 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 No fracture. There is mil d osteoarthritis of the hips. IMPRESSION: 1. Mild osteoarthritis of the hips. Reviewed, dictated and finalized at location A. N [employer]OURCES MANAGER [employer]ING
--- OUTSIDE RECORDS SUMMARY | 2024-05-29 11:13 | XMS_ITS | Referral Summary ---
Author Organization [facility] Address [address] [place] [address] Care Team Providers Care Business Practices Officer Name Role Phone AraceliSeble Sue [employer] Primary Care Provider [phone]- [phone] Source Comments [facility],non-owned Affiliates and Associated Physician Practices is amultiple site organization consisting of ambulatory clinics and hospital sitesin [place], [place], [place] and [place]. This disclosure is being madepursuant to the Care Everywhere program and may not contain all information available regarding this patient. Last updated 17.[facility] Allergies Active Allergy Reactions Criticality Noted Date [...] Active azelastine (ASTELIN) 0.1 % nasal spray [place] 1 [place] into each nostril 2 times daily 1 [...] tablet by mouth once daily 11/24/2022 Active Sherwood-3 Fatty Acids (fish oil) 1000 MG capsule [...] and heating? Not hard at all 03/01/2023 [facility] of Occupat ional Health - Occupational Stress [...] place to sleep or slept in a retirement (including now)? No 03/01/2023 Sex and Gender Information Value Date Recorded Sex Assigned at Not on file Gender Identity Not on file Sexual Orientation Not on file Last Filed Vital Signs Vital Sign Reading Time Taken Comments Blood Pressure 108/49 03/15/2023 10:51 AM AESTHETICS INSTRUCTOR Pulse 57 03/15/2023 10:51 AM AESTHETICS INSTRUCTOR Temperature 36.4 C (97.5 F) 03/15/2023 10:51 AM AESTHETICS INSTRUCTOR Respiratory Rate 20 03/15/2023 10:51 AM AESTHETICS INSTRUCTOR Oxygen Saturation 91% 03/15/2023 10:51 AM AESTHETICS INSTRUCTOR Inhaled Oxygen Concentration - - Weight 53 kg (116 lb 12.8 oz) 03/15/2023 6:13 AM AESTHETICS INSTRUCTOR Height 157.5 cm (5' 2 ) 03/13/2023 9:00 AM AESTHETICS INSTRUCTOR Body Mass Index 21.36 03/13/2023 9:00 AM AESTHETICS INSTRUCTOR Functional Status Functional Status Response Date of [...] on file Medical Devices Implanted Type Area Panel Installer Device Identifier Shelf Expiration Date Model / Serial / Lot Env Defib 3.3x2.9in Aigisrx Icd Tyrx Lg - [id number] Implanted:Qty: 1 on 03/12/2023 by Monty Myers MD at [facility] [employer] [id number] 12/09/2023 [id number] / [id number] / [id number] Procedures Procedure Name Priority Date/Time Associated Diagnosis [...] g/cm2 T score: -1 Z score: 1.1 Procedure Note Jed Rush MD - [...] on same machine if possible. Seble Charles APRN-ROZ DEXA ORDERABLES from Last 3 Months or Most Recently Relevant to Health Maintenance Administered Medications Advance Directives * Full Code (Latest Code Status on File) Date Activated Date Inactivated Comments 03/01/2023 3:35 PM 03/15/2023 3:28 PM Care Teams Business Practices Officer Relationship Specialty Start Date End Date Seble Charles, CONFERENCE SERVICE COORDINATOR-[employer] FACER [address] [place] [address] PCP - General Family Medicine 07/30/12
--- OUTSIDE RECORDS SUMMARY | 2024-05-29 11:13 | XMS_ITS | Clinical Summary ---
Author Organization [facility] [employer] Address [address] [place] [address] Care Team Providers Care Dispatch Associate Name Role Phone AraceliSeble Sue EUGENE-LICENSED TAX CONSULTANT Primary Care Provider [phone]- [phone] Source Comments [facility] [employer],non-owned Affiliates and Associated Physician Practices is amultiple site organization consisting of ambulatory clinics and hospital sitesin [place], [place] and [place]. This disclosure is being madepursuant to the Care Everywhere program and may not contain all information available regarding this patient. Last updated 17.[facility] [employer] Allergies Active Allergy Reactions Criticality Noted Date [...] Active azelastine (ASTELIN) 0.1 % nasal spray [place] 1 [place] into each nostril 2 times daily [...] tablet by mouth once daily 11/24/2022 Active [place]-3 Fatty Acids (fish oil) 1000 MG capsule [...] and heating? Not hard at all 03/01/2023 [facility] [place] of Occupat ional Health - Occupational Stress [...] place to sleep or slept in a long-term (including now)? No 03/01/2023 Sex and Gender Information Value Date Recorded Sex Assigned at Not on file Gender Identity Not on file Sexual Orientation Not on file Last Filed Vital Signs Vital Sign Reading Time Taken Comments Blood Pressure 108/49 03/15/2023 10:51 AM [employer] Pulse 57 03/15/2023 10:51 AM [employer] Temperature 36.4 C (97.5 F) 03/15/2023 10:51 AM [employer] Respiratory Rate 20 03/15/2023 10:51 AM [employer] Oxygen Saturation 91% 03/15/2023 10:51 AM [employer] Inhaled Oxygen Concentration - - Weight 53 kg (116 lb 12.8 oz) 03/15/2023 6:13 AM [employer] Height 157.5 cm (5' 2 ) 03/13/2023 9:00 AM [employer] Body Mass Index 21.36 03/13/2023 9:00 AM [employer] Plan of Treatment Health Maintenance Due Date Last Done Comments MEDICARE AWV 12 MONTHS 08/12/2014 08/12/2013 Respiratory Syncytial Virus [...] this topic Medical Devices Implanted Type Area Telecommunications Switch Technician Device Identifier Shelf Expiration Date Model / Serial / Lot Env Defib 3.3x2.9in [employer] Icd Tyrx Lg - [id number] Implanted:Qty: 1 on 03/12/2023 by Monty Myers MD at [facility] [employer] [id number] 12/09/2023 [id number] / [id number] / [id number] Procedures Procedure Name Priority Date/Time Associated Diagnosis [...] years on same machine if possible. Seble OLIVEIRA DEXA ORDERABLES from Last 3 Months or Most Recently Relevant to Health Maintenance Advance Directives * Full Code (Latest Code Status on File) Date Activated Date Inactivated Comments 03/01/2023 3:35 PM 03/15/2023 3:28 PM Care Teams Dispatch Associate Relationship Specialty Start Date End Date Seble Charles APRN-CNP [address] [place] [address] PCP - General Family Medicine 07/30/12
--- OUTSIDE RECORDS SUMMARY | 2024-05-29 11:14 | XMS_ITS | Patient Health Summary ---
Author Organization [facility] Address [address] [place] [address] Care Team Providers Care System Planning Engineer Name Role Phone AraceliSeble Sue EUGENE-DRIVER GUARD Primary Care Provider [phone] Note from [facility],non-owned Affiliates and Associated Physician Practices is amultiple site organization consisting of ambulatory clinics and hospital sitesin [place], [place], [place] and [place]. This disclosure is being madepursuant to the Care Everywhere program and may not contain all information available regarding this patient. Last updated 17.[facility] Allergies * Adhesive Sensitivity(Rash) -Medium Criticality [...] azelastine (ASTELIN) 0.1 % nasal spray(Started 04/16/2015) [place] 1 [place] into each nostril 2 times daily 1 [...] (one) tablet by mouth once daily * [place]-3 Fatty Acids (fish oil) 1000 MG capsule [...] and heating? Not hard at all 03/01/2023 [facility] [place] [facility] Occupat ional [facility] - Occupational Stress [...] place to sleep or slept in a halfway (including now)? No 03/01/2023 Sex and Gender Information Value Date Recorded Sex Assigned at Not on file Gender Identity Not on file Sexual Orientation Not on file Last Filed Vital Signs Vital Sign Reading Time Taken Comments Blood Pressure 108/49 03/15/2023 10:51 AM INSTRUMENTATION SPECIALIST Pulse 57 03/15/2023 10:51 AM INSTRUMENTATION SPECIALIST Temperature 36.4 C (97.5 F) 03/15/2023 10:51 AM INSTRUMENTATION SPECIALIST Respiratory Rate 20 03/15/2023 10:51 AM INSTRUMENTATION SPECIALIST Oxygen Saturation 91% 03/15/2023 10:51 AM INSTRUMENTATION SPECIALIST Inhaled Oxygen Concentration - - Weight 53 kg (116 lb 12.8 oz) 03/15/2023 6:13 AM INSTRUMENTATION SPECIALIST Height 157.5 cm (5' 2 ) 03/13/2023 9:00 AM INSTRUMENTATION SPECIALIST Body Mass Index 21.36 03/13/2023 9:00 AM INSTRUMENTATION SPECIALIST Medical Devices Implanted Type Area Piano Assembler Device Identifier Shelf Expiration Date Model / Serial / Lot Env Defib 3.3x2.9in Aigisrx Icd Tyrx Lg - [id number] Implanted:Qty: 1 on 03/12/2023 by Monty Myers MD at [facility] [employer] [id number] 12/09/2023 [id number] / [id number] Procedures * CARDIAC EKG ORDER(Performed 03/16/2023) * [...] 03/14/2023) Performed for Pleural effusion * CYTOLOGY NON-SHOE LAY OUT PLANNER PANEL (STL)(Performed 03/14/2023) Performed for Pleural effusion [...] 03/13/2023) Performed for SSS (sick sinus syndrome) ([facility]) * XR CHEST 1VW PORTABLE(Performed 03/13/2023) Performed for Hemopneumothorax on right * PT-INR [facility](Performed 03/13/2023) * COMPREHENSIVE METABOLIC PANEL(Performed 03/13/2023) * CBC W AUTO DIFFERENTIAL(Performed 03/13/2023) * PHOSPHORUS BLOOD(Performed 03/13/2023) * MAGNESIUM BLOOD(Performed 03/13/2023) * EKG 12-LEAD(Performed 03/12/2023) Performed for SSS (sick sinus syndrome) ([facility]) * ELECTROPHYSIOLOGY PROCEDURE(Performed 03/12/2023) Performed for SSS (sick sinus syndrome) ([facility]) * BLOOD GAS+COOX+LYTES+METAB ARTERIAL POCT(Performed 03/12/2023) * [...] * CARDIAC EKG ORDER (03/16/2023 2:24 PM INSTRUMENTATION SPECIALIST) Narrative 03/16/2023 2:24 PM INSTRUMENTATION SPECIALIST Ordered by an unspecified provider. Scanned Document CARDIAC SERVICES ORD ERABLES * XR CHEST 1VW PORTABLE (03/15/2023 6:59 AM INSTRUMENTATION SPECIALIST) Only the most recent of9 resultswithin the time period is included. Anatomical Region Laterality Modality Chest Radiographic Fabi ging 03/15/2023 7:45 AM INSTRUMENTATION SPECIALIST Narrative 03/15/2023 8:08 PM INSTRUMENTATION SPECIALIST PROCEDURE: XR CHEST 1VW PORTABLE, XR CHEST 1VW PORTABLE, XR CHEST 1VW PORTABLE, DATE/TIME OF EXAM: 03/15/2023 7:00 AM, LOCATION [facility] INDICATION: J90: Pleural effusion ADDITIONAL CLINICAL INFORMATION: Ordering Provider Reason For Exam: pleural effusion (accession [id number]), s/p thoracentesis (accession [id number]), concern for effusion, eval for improvement (accession [id number]) COMPARISON: None. TECHNIQUE: Frontal radiograph of the [...] obscured. Report dictated by Kev Amador DO (Telephonic Rn). I, Gaurang Quinones MD have personally reviewed and interpreted this examination/study. > Interpreting Provider: Gaurang Quinones MD on 03/15/2023 8:08 PM Procedure Note Gaurang Quinones MD - 03/15/2023 PROCEDURE: XR CHEST 1VW PORTABLE, XR CHEST 1VW PORTABLE, XR CHEST 1VW PORTABLE, DATE/TIME OF EXAM: 03/15/2023 7:00 AM, LOCATION [facility] INDICATION: J90: Pleural effusion ADDITIONAL CLINICAL INFORMATION: Ordering Provider Reason For Exam: pleural effusion ([id number]), s/p thoracentesis (accession [id number]), concern for effusion, eval for improvement (accession [id number]) COMPARISON: None. TECHNIQUE: Frontal radiograph of the [...] obscured. Report dictated by Kev Amador DO (Telephonic Rn). I, Gaurang Quinones MD have personally reviewed and interpreted this examination/study. > Interpreting Provider: Gaurang Quinones MD on 03/15/2023 8:08 PM Monty Myers MD DIAGNOSTIC I MAGING ORDERABLES * (ABNORMAL) PT-INR [facility] (03/15/2023 1:54 AM INSTRUMENTATION SPECIALIST) Only the most recent of12 resultswithin the time period is included. PT 25.7(H) 12.1 - 14.8 Seconds 03/15/2023 4:40 AM INSTRUMENTATION SPECIALIST [facility] INR 2.4 See Comment 03/15/2023 4:40 AM INSTRUMENTATION SPECIALIST [facility] Comment:The suggested therap eutic range for standard coumadin (warfarin) therapy is an INR of 2.0-3.0. For high-risk patients (Mechanical Mitral Valve Prosthesis, etc.), the suggested prophylactic therapeutic range is an INR of 2.5-3.5. Blood BLOOD SPECIMEN / Unknown Lab Venipuncture / Unknown 03/15/2023 1:54 AM INSTRUMENTATION SPECIALIST 03/15/2023 4:18 AM INSTRUMENTATION SPECIALIST Omar John MD LAB - COAGULATION OR DERABLES [facility] [address] [place] [address], [facility] [phone] * (ABNORMAL) CBC W AUTO DIFFERENTIAL (03/15/2023 1:54 AM INSTRUMENTATION SPECIALIST) Only the most recent of16 resultswithin the time period is included. WBC 11.8(H) 3.5 - 10.5 10 3/uL 03/15/2023 4:31 AM [facility] RBC 2.78(L) 3.80 - 5.20 10 6/uL 03/15/2023 4:31 AM [facility] Hemoglobin 8.2(L) 12.0 - 15.6 g/dL 03/15/2023 4:31 AM [facility] Hematocrit 26.1(L) 35.0 - 45.0 % 03/15/2023 4:31 AM [facility] MCV 93.9 80.7 - 98.3 fL 03/15/2023 4:31 AM [facility] MCH 29.5 26.7 - 34.0 pg 03/15/2023 4:31 AM [facility] MCHC 31.4 30.8 - 35.9 g/dL 03/15/2023 4:31 AM [facility] RDW-SD 53.2(H) 36.0 - 50.0 fL 03/15/2023 4:31 AM [facility] RDW-CV 15.7(H) 11.2 - 14.8 % 03/15/2023 4:31 AM [facility] Platelet Count 206 150 - 400 10 3/uL 03/15/2023 4:31 AM [facility] MPV 9.6 9.4 - 12.9 fL 03/15/2023 4:31 AM [facility] nRBC Absolute 0.00 0 10 3/uL 03/15/2023 4:31 AM [facility] nRBC Auto 0.0 0 /100 WBC 03/15/2023 4:31 AM [facility] Neutrophils % 81.6(H) 35.0 - 70.0 % 03/15/2023 4:31 AM [facility] Lymphocytes % 10.3(L) 20.0 - 43.0 % 03/15/2023 4:31 AM [facility] Monocytes % 5.9 5.0 - 13.0 % 03/15/2023 4:31 AM [facility] Eosinophils % 0.9 0.0 - 6.0 % 03/15/2023 4:31 AM [facility] Basophil % 0.3 0.0 - 2.0 % 03/15/2023 4:31 AM [facility] Neutrophils Absolute 9.65(H) 1.60 - 7.00 10 3/uL 03/15/2023 4:31 AM [facility] Lymphocyte Absolute 1.22 1.10 - 3.90 10 3/uL 03/15/2023 4:31 AM [facility] Monocytes Absolute 0.70 0.26 - 1.07 10 3/uL 03/15/2023 4:31 AM [facility] Eosinophils Absolute 0.11 0.00 - 0.47 10 3/uL 03/15/2023 4:31 AM [facility] Basophils Absolute 0.03 0.00 - 0.08 10 3/uL 03/15/2023 4:31 AM [facility] Immature Granulocytes % 1.0 0.0 - 1.0 % 03/15/2023 4:31 AM [facility] Immature Granulocytes Absolute 0.12 03/15/2023 4:31 AM [facility] Blood BLOOD SPECIMEN / Unknown Lab Venipuncture / Unknown 03/15/2023 1:54 AM INSTRUMENTATION SPECIALIST 03/15/2023 4:18 AM INSTRUMENTATION SPECIALIST Omar John MD LAB - HEMATOLOGY ORD ERABLES [facility] [address] [place] [address], [facility] [phone] * (ABNORMAL) COMPREHENSIVE METABOLIC PANEL (03/15/2023 1:54 AM [facility]) Only the most recent of16 resultswithin the time period is included. BUN 11 7 - 26 mg/dL 03/15/2023 4:55 AM [facility] Creatinine 0.69 0.56 - 0.96 mg/dL 03/15/2023 4:55 AM [facility] Sodium 142 136 - 145 mmol/L 03/15/2023 4:55 AM [facility] Potassium 3.4(L) 3.5 - 4.5 mmol/L 03/15/2023 4:55 AM [facility] Chloride 102 98 - 107 mmol/L 03/15/2023 4:55 AM [facility] CO2 30(H) 22 - 29 mmol/L 03/15/2023 4:55 AM [facility] Glucose 101 70 - 115 mg/dL 03/15/2023 4:55 AM [facility] Calcium 8.0(L) 8.4 - 10.2 mg/dL 03/15/2023 4:55 AM [facility] Protein Total 4.9(L) 6.0 - 8.3 g/dL 03/15/2023 4:55 AM [facility] Albumin 2.5(L) 3.4 - 5.0 g/dL 03/15/2023 4:55 AM [facility] Bilirubin Total 0.4 0.2 - 1.2 mg/dL 03/15/2023 4:55 AM [facility] Alkaline Phosphatase 93 40 - 150 U/L 03/15/2023 4:55 AM [facility] ALT 34 5 - 55 U/L 03/15/2023 4:55 AM [facility] AST 27 5 - 34 U/L 03/15/2023 4:55 AM [facility] Anion Gap 10 6 - 16 03/15/2023 4:55 AM [facility] BUN/Creatinine Ratio 16 7 - 23 03/15/2023 4:55 AM [facility] Osmolality Calculated 294 275 - 295 mOsm/kg 03/15/2023 4:55 AM [facility] Albumin/Globulin Ratio 1.0(L) 1.1 - 2.3 03/15/2023 4:55 AM [facility] eGFR by CKD-EPI 87(L) >=90 mL/min/1.7 3 m2 03/15/2023 4:55 AM [facility] Blood BLOOD SPECIMEN / Unknown Lab Venipuncture / Unknown 03/15/2023 1:54 AM INSTRUMENTATION SPECIALIST 03/15/2023 4:18 AM INSTRUMENTATION SPECIALIST Omar John MD LAB - CHEMISTRY YANELY RIVAS Performing Organization Address City/[facility]/ZIP Co de Phone Number [address] [address], [facility] [phone] * PHOSPHORUS BLOOD (03/15/2023 1:54 AM INSTRUMENTATION SPECIALIST) Only the most recent of12 resultswithin the time period is included. Phosphorus 2.9 2.9 - 5.1 mg/dL 03/15/2023 4:55 AM [facility] Blood BLOOD SPECIMEN / Unknown Lab Venipuncture / Unknown 03/15/2023 1:54 AM INSTRUMENTATION SPECIALIST 03/15/2023 4:18 AM INSTRUMENTATION SPECIALIST Omar John MD LAB - CHEMISTRY YANELY RIVAS Performing Organization Address City/[facility]/ZIP Co de Phone Number [address] [address], [place] [phone] * MAGNESIUM BLOOD (03/15/2023 1:54 AM INSTRUMENTATION SPECIALIST) Only the most recent of13 resultswithin the time period is included. Magnesium 1.6 1.6 - 2.6 mg/dL 03/15/2023 4:55 AM [facility] Blood BLOOD SPECIMEN / Unknown Lab Venipuncture / Unknown 03/15/2023 1:54 AM INSTRUMENTATION SPECIALIST 03/15/2023 4:18 AM INSTRUMENTATION SPECIALIST Omar John MD LAB - CHEMISTRY YANELY RIVAS Performing Organization Address [facility]/ZIP Co de Phone Number [address] [address], [place] [phone] * PREPARE (CROSSMATCH) RBC UNIT(S), 4 Units (03/15/2023 1:17 AM INSTRUMENTATION SPECIALIST) Only the most recent of3 resultswithin the time period is included. Pathologist [facility] Unit Description N/A [facility] Blood Bank BLOOD SPECIMEN / Unknown 03/11/2023 9:27 AM INSTRUMENTATION SPECIALIST Monty Myers MD LAB - BLOOD BANK ORDERABLES Performing Organization Address [facility] Co de Phone Number [facility] [address] [place] [address], [place] [phone] * (ABNORMAL) LDH BLOOD (03/14/2023 6:21 PM INSTRUMENTATION SPECIALIST) [facility] LDH Total 422(H) 125 - 243 Units/L 03/14/2023 7:03 PM INSTRUMENTATION SPECIALIST [facility] Blood BLOOD SPECIMEN / Unknown Venipuncture / Unknown 03/14/2023 6:21 PM INSTRUMENTATION SPECIALIST 03/14/2023 6:35 PM INSTRUMENTATION SPECIALIST Abner Zavaleta MD LAB - CHEMISTRY [facility] RIVAS Performing Organization Address [facility]/ZIP Co de Phone Number [address] [address], [place] [phone] * PROTEIN BODY FLUID ([facility] ONLY) (03/14/2023 10:51 AM INSTRUMENTATION SPECIALIST) [facility] Protein Fluid 2.4 Not Established For Fluids g/dL 03/14/2023 12:13 PM INSTRUMENTATION SPECIALIST [facility] Comment:The analytical perfo rmance of this test has been independently validated by [facility]. A reference range has not been established. Comparison of this result with the concentration in blood, serum or plasma is recommended. Fluid PLEURAL FLUID / Unknown Collection / Unknown 03/14/2023 10:51 AM INSTRUMENTATION SPECIALIST 03/14/2023 11:08 AM INSTRUMENTATION SPECIALIST Kassidy ELDRIDGEC LAB - BODY FLUID O RDERABLES [address] [address], [place] [phone] * PH BODY FLUID ([facility] ONLY) (03/14/2023 10:51 AM INSTRUMENTATION SPECIALIST) pH Fluid 7.50 Not Established for Fluids pH 03/14/2023 11:19 AM INSTRUMENTATION SPECIALIST [facility] Body Fluid Type Pleural Fluid 03/14/2023 11:19 AM INSTRUMENTATION SPECIALIST [facility] Fluid PLEURAL FLUID / Unknown Collection / Unknown 03/14/2023 10:51 AM INSTRUMENTATION SPECIALIST 03/14/2023 11:08 AM INSTRUMENTATION SPECIALIST Kassidy CONLEY-C LAB - BODY FLUID O RDERARIGOBERTO Performing Organization Address [facility]/ZIP Co de Phone Number [address] [address], [place] [phone] * LD BODY FLUID ([facility] ONLY) (03/14/2023 10:51 AM INSTRUMENTATION SPECIALIST) LD Fluid 233 Not Established For Fluids Units/L 03/14/2023 12:13 PM INSTRUMENTATION SPECIALIST [facility] Comment:The analytical perfo rmance of this test has been independently validated by [facility]. A reference range has not been established. Comparison of this result with the concentration in blood, serum or plasma is recommended. Fluid PLEURAL FLUID / Unknown Collection / Unknown 03/14/2023 10:51 AM INSTRUMENTATION SPECIALIST 03/14/2023 11:08 AM INSTRUMENTATION SPECIALIST Kassidy CONLEY-C LAB - BODY FLUID O RDERABLES Performing Organization Address [facility]/ZIP Co de Phone Number [address] [address], [place] [phone] * GLUCOSE BODY FLUID ([facility] ONLY) (03/14/2023 10:51 AM INSTRUMENTATION SPECIALIST) Glucose Fluid 128 Not Established For Fluids mg/dL 03/14/2023 12:13 PM [facility] Comment:The analytical perfo rmance of this test has been independently validated by [facility]. A reference range has not been established. Comparison of this result with the concentration in blood, serum or plasma is recommended. Fluid PLEURAL FLUID / Unknown Collection / Unknown 03/14/2023 10:51 AM INSTRUMENTATION SPECIALIST 03/14/2023 11:08 AM INSTRUMENTATION SPECIALIST Kassidy Vera PA-C LAB - BODY FLUID O TRIXIE [facility] [address] [place] [address], [facility] [phone] * (ABNORMAL) CELL COUNT W DIFFERENTIAL FLUID (03/14/2023 10:51 AM INSTRUMENTATION SPECIALIST) Color Fluid Yellow(A) Colorless, Straw 03/14/2023 11:27 AM [facility] Clarity Fluid Cloudy(A) Clear 03/14/2023 11:27 AM [facility] Volume Fluid 2.0 mL 03/14/2023 11:27 AM [facility] WBC Fluid 312 Reference Range Not Established x10e6/L 03/14/2023 11:27 AM [facility] RBC Fluid 6,000 Reference Range Not Established x10e6/L 03/14/2023 11:27 AM [facility] Differential Manual Differential to follow. 03/14/2023 11:27 AM [facility] Fluid PLEURAL FLUID / Unknown Collection / Unknown 03/14/2023 10:51 AM INSTRUMENTATION SPECIALIST 03/14/2023 11:08 AM INSTRUMENTATION SPECIALIST Narrative [facility] - 03/14/2023 11:27 AM INSTRUMENTATION SPECIALIST No reference ranges established for body fluid cell counts. The reference ranges provided are derived from published literature. The test results must be integrated into the clinical context for interpretation. Kassidy Vera PA-C LAB - BODY FLUID O RDERABLES [facility] [address] [place] [address], [facility] [phone] * CYTOLOGY NON-SHOE LAY OUT PLANNER PANEL (STL) (03/14/2023 10:51 AM INSTRUMENTATION SPECIALIST) Case Report Medical Cytology Report Case: [id number] Authorizing Provider: Kassidy Vera PA-C Collected: 03/14/2023 10:51 AM Ordering Location: [facility] 4 ICU Received: 03/14/2023 11:23 AM Pathologist: Trey Sanchez DO Specimen: Pleural Fluid 03/16/2023 2:46 PM [facility] Amended Report Rare atypical vs reactive cells 03/16/2023 2:46 PM [facility] Specimen Adequacy Adequate cellularity for evaluation. 03/16/2023 2:46 PM [facility] Final Diagnosis Pleural fluid, cytology: - Negative for malignancy. 03/16/2023 2:46 PM [facility] Gross Description 1 cytospin Pap stained slide and 1 cellblock from a 50 cc corrine , turbid , fresh fluid 03/16/2023 2:46 PM [facility] Microscopic Description Review of the cytospin of pleural fluid shows a few reactive mesothelial cells and lymphocytes. The cell block shows a rare mesothelial cell. No malignant cells are seen. 03/16/2023 2:46 PM [facility] Pathologist Location at [facility] 03/16/2023 2:46 PM [facility] Disclaimer The performance characteristics of all immunohistochemical and indirect immunofluorescence stains (if any) cited in this report were determined by the Histopathology Laboratory of [facility]. Some of these tests rely on the use of analyte-specific reagents and are subject to specific labeling requirements by the [place] Food and Drug Administration. Such tests were developed by the Histology Laboratory of [facility] and have not been cleared or approved [...] the attending (teaching) pathologist. 03/16/2023 2:46 PM [facility] Embedded Images 03/16/2023 2:46 PM [facility] Pathology/Cytolo gy PLEURAL FLUID / Unknown Collection / Unknown 03/14/2023 10:51 AM INSTRUMENTATION SPECIALIST 03/14/2023 11:23 AM INSTRUMENTATION SPECIALIST Kassidy Vera PA-C LAB - PATHOLOGY/CY TOLOGY ORDERABLES Performing Organization Address [facility]/ZIP Co de Phone Number [facility] [address] [place] [address], [facility] [phone] * DIFFERENTIAL MANUAL FLUID (03/14/2023 10:51 AM INSTRUMENTATION SPECIALIST) Segs % Fluid 17 % 03/14/2023 12:[address] [facility] Lymphocytes % Fluid 14 % 03/14/2023 12:17 PM INSTRUMENTATION SPECIALIST [facility] Monocytes % Fluid 43 % 023 12:[address] [facility] Macrophages % Fluid 22 % 03/14/2023 12:[address] [facility] Mesothelials % Fluid 4 % 03/14/2023 12:[address] [facility] Fluid PLEURAL FLUID / Unknown Collection / Unknown 03/14/2023 10:51 AM INSTRUMENTATION SPECIALIST 03/14/2023 11:08 AM INSTRUMENTATION SPECIALIST Kassidy Vera PA-C LAB - BODY FLUID O RDERABLES Performing Organization Address [facility]/State/ZIP Co de Phone Number [facility] [address] [place] [address], [facility] [phone] * CULTURE FLUID+GRAM STAIN (03/14/2023 10:51 AM INSTRUMENTATION SPECIALIST) Culture No growth [facility] 03/17/2023 9:51 PM INSTRUMENTATION SPECIALIST [facility] Gram Stain Rare Polymorphonuclear cells 03/17/2023 9:51 PM INSTRUMENTATION SPECIALIST [facility] Gram Stain Light Red blood cells 03/17/2023 9:51 PM INSTRUMENTATION SPECIALIST [facility] Gram Stain No organisms seen 023 9:51 PM INSTRUMENTATION SPECIALIST [facility] Other PLEURAL FLUID / Unknown Collection / Unknown 03/14/2023 10:51 AM INSTRUMENTATION SPECIALIST 03/14/2023 11:07 AM INSTRUMENTATION SPECIALIST Kassidy Vera PA-C LAB - MICROBIOLOGY ORDERABLES Performing Organization Address City/[facility]/ZIP Co de Phone Number [facility] [address] [place] [address], [facility] [phone] * CULTURE AFB+SMEAR (03/14/2023 10:51 AM INSTRUMENTATION SPECIALIST) Culture No acid-fast bacillus isolated 04/23/2023 8:40 AM INSTRUMENTATION SPECIALIST [facility] AFB Smear No acid-fast bacilli seen 04/23/2023 8:40 AM INSTRUMENTATION SPECIALIST [facility] Microbiology PLEURAL FLUID / Unknown Collection / Unknown 03/14/2023 10:51 AM INSTRUMENTATION SPECIALIST 03/14/2023 11:08 AM INSTRUMENTATION SPECIALIST Kassidy Vera PA-C LAB - MICROBIOLOGY ORDERABLES Performing Organization Address City/[facility]/ZIP Co de Phone Number [facility] [address] [place] [address], [facility] [phone] * CULTURE ANAEROBE (03/14/2023 10:51 AM INSTRUMENTATION SPECIALIST) Culture No anaerobic organisms isolated [facility] 03/19/2023 10:17 AM INSTRUMENTATION SPECIALIST [facility]CRO[facility] Microbiology PLEURAL FLUID / Unknown Collection / Unknown 03/14/2023 10:51 AM INSTRUMENTATION SPECIALIST 03/14/2023 11:08 AM INSTRUMENTATION SPECIALIST Kassidy Vera PA-C LAB - MICROBIOLOGY ORDERABLES Performing Organization Address City/[facility]/ZIP Co de Phone Number [facility] [address] [place] [address], [facility] [phone] * HEMATOCRIT FLUID (03/14/2023 10:51 AM INSTRUMENTATION SPECIALIST) Hematocrit Fluid <1.0 % 03/14/2023 11:33 AM INSTRUMENTATION SPECIALIST [facility] Fluid PLEURAL FLUID / Unknown Collection / Unknown 03/14/2023 10:51 AM INSTRUMENTATION SPECIALIST 03/14/2023 11:08 AM INSTRUMENTATION SPECIALIST Narrative [facility] - 03/14/2023 11:33 AM INSTRUMENTATION SPECIALIST The Reference Range and other method performance specifications have not been established for body fluid Hematocrit. The test result must be integrated into the clinical context for interpretation. Kassidy Vera PA-C LAB - BODY FLUID O RDERABLES [facility] [address] [place] [address], [facility] [phone] * ECHO LIMITED COLOR FLOW AND DOPPLER (03/13/2023 11:35 AM INSTRUMENTATION SPECIALIST) Only the most recent of4 resultswithin the time period is included. BSA [id number] m2 [facility] CV FUJ I PACS LV [...] 36 mmHg [facility] CV FU JI PACS [id number] 5.866 cm [facility] CV FUJ I PACS sPAP 39.0 mmHg [facility] CV FUJ I PACS Anatomical Region Laterality Modality Ultrasound Narrative 03/13/2023 1:43 PM INSTRUMENTATION SPECIALIST Left Ventricle: Left ventricle size is normal. Normal wall thickness. Hyperdynamic systolic function with a visually estimated EF of 60 - 65%. Normal wall motion. Right Ventricle: Right ventricle is mildly dilated. Low normal systolic function. Pacing/ICD wire present in the right ventricle. Right Atrium: Right atrium is severely dilated. Pacing/ICD wire present in the right atrium. Tricuspid Valve: Severe regurgitation. The pulmonary artery systolic pressure is mildly elevated. Estimated sPAP is 39.0 mmHg. IVC/SVC: IVC diameter is less than or equal to 21 mm and decreases greater than 50% during inspiration; therefore the estimated right atrial pressure is normal (~3 mmHg). Pericardium: Small circumferential pericardial effusion present. Bilateral pleural [...] CUPID * EKG 12-LEAD (03/12/2023 5:08 PM INSTRUMENTATION SPECIALIST) Only the most recent of8 resultswithin the time period is included. Ventricular Rate 97 BPM [facility] MUSE QRS Duration ms 78 ms [facility] M[facility] Q-T Interval ms 384 ms SL MUSE QTC Calculation (Bezet) 487 ms [facility] MUSE Calculated R [place] 49 degrees [facility] MUSE Calculated T [place] 28 degrees [facility] MUSE Interpretation EKG ATRIAL [...] HAS LENGTHENED Confirmed by CARMELA TORRES MD ([id number]) on 03/15/2023 8:17:49 AM [facility] 03/12/2023 5:08 PM INSTRUMENTATION SPECIALIST 03/15/2023 8:17 AM INSTRUMENTATION SPECIALIST Monty Myers MD ECG ORDERABL ES [facility] * CCL LEAD EXTRACTION W REPLACEMENT (03/12/2023 4:37 PM INSTRUMENTATION SPECIALIST) Anatomical Region Laterality Modality X-Ray Angiograph y Narrative 03/13/2023 12:09 AM INSTRUMENTATION SPECIALIST Successful explantation of right atrial lead under [...] SSS (with pacemaker placement on 02/28 at [facility]), a fib, asthma, osteoarthritis, and Raynaud's who was transferred to [facility] after presenting to OSH for a syncopal episode and found to have a hemopneumothorax. Chest tube was placed by [facility] trauma team on 03/01 and then [...] 10 mL Procedure Details and Comments: Primary diagnosis: Procedures: Explantation of right atrial lead under general anesthesia and GUADALUPE guidance. Central line insertion via right femoral vein access. Procedure: Patient was put under general anaesthesia by the anesthesia team. After positioning the patient and prepping and draping sterile almanzar in both groins and the chest, we started by obtaining a Rt. femoral vein access using Seldinger technique under vascular ultrasound guidance for obtaining central venous access . We then moved on to extract the device and leads. The exact location of the device was confirmed by palpation. Following this, a 5 cm long oblique incision was made through the skin and subcutaneous tissue, taking care to avoid injury to the leads.Two swabs were taken from the wound. The previously-implanted device was exposed and carefully freed from surrounding tissue, and then removed from the pocket. The atrial lead lead was removed from the header. The lead's suture sleeve was freed. A stylet was then put in the RA . After that the RA fixation coil was retracted as much as possible, the RA lead was then explanted with a gentle pull. The right atrial port was then capped.The previously-formed pocket was then irrigated with antibiotic saline solution as was the rest of the incision. Hemostasis was readily achieved . The wound was [...] no complications. Omar John MD CV ELECTROPHYSIOLOGY CUPID PROCS * (ABNORMAL) BLOOD GAS+COOX+LYTES+METAB ARTERIAL POCT (03/12/2023 4:23 PM INSTRUMENTATION SPECIALIST) pH Arterial 7.50(H) 7.35 - 7.45 pH 03/12/2023 4:23 PM INSTRUMENTATION SPECIALIST [facility] pO2 Arterial 204(H) 80 - 100 mmHg 03/12/2023 4:23 PM INSTRUMENTATION SPECIALIST [facility] pCO2 Arterial 34(L) 35 - 45 mmHg 3 4:23 PM INSTRUMENTATION SPECIALIST [facility] HCO3 Arterial 26.5 20.0 - 30.0 mmol/L 03/12/2023 4:23 PM [facility] BE Arterial 3.3(H) -2.0 - 2.0 mmol/L 03/12/2023 4:23 PM [facility] Oxyhemoglobin Arterial 96.2 % 03/12/2023 4:23 PM [facility] Dexoyhemoglobin (HHB) % <1.0 % 03/12/2023 4:23 PM [facility] Methemoglobin 1.4 0.0 - 2.0 % 03/12/2023 4:23 PM [facility] Carboxyhemoglobin 1.7 0.0 - 2.0 % 2022 4:23 PM [facility] Comment:Carboxyhemoglobin No rmal Concentration: Non-smokers: 0-2%; Smokers: 0- 9%; Toxic: >20% O2 Content Arterial 12.1 Interpret within clinical context ml/dL 03/12/2023 4:23 PM [facility] Hemoglobin by COOX 8.6(L) 12.0 - 15.6 g/dL 03/12/2023 4:23 PM [facility] O2 Saturation Arterial 99 90 - 100 % 03/12/2023 4:23 PM [facility] Sodium Whole Blood 137 135 - 145 mmol/L 03/12/2023 4:23 PM [facility] Potassium Whole Blood 3.4(L) 3.5 - 5.5 mmol/L 03/12/2023 4:23 PM [facility] Chloride WB 106 78 - 107 mmol/L 03/12/2023 4:23 PM [facility] Calcium Ionized 1.14 mmol/L 4:23 PM [facility] Ionized Calcium pH Adjusted 1.19 1.19 - 1.34 mmol/L 03/12/2023 4:23 PM [facility] Anion Gap (AG) Arterial 5(L) 6 - 16 mmol/L 03/12/2023 4:23 PM [facility] Glucose WB 100 70 - 115 mg/dL 03/12/2023 4:23 PM [facility] Lactic Acid Whole Blood 1.0 <=2.0 mmol/L 03/12/2023 4:23 PM [facility] Blood, arterial ARTERIAL BLOOD SPECIMEN / Unknown 03/12/2023 4:23 PM INSTRUMENTATION SPECIALIST 03/12/2023 4:24 PM INSTRUMENTATION SPECIALIST Monty Myers MD LAB - POINT OF CARE ORDERABLES [facility] [address] [place] [address], [facility] [phone] * ARTERIAL LINE PERFORMABLE (03/12/2023 3:57 PM INSTRUMENTATION SPECIALIST) Narrative Alphonse Wharton DO - 03/12/2023 3:57 PM INSTRUMENTATION SPECIALIST Alphonse Wharton DO 03/12/2023 3:59 PM Arterial Line Placement Procedure Note Patient Location: OR. Procedure: Arterial Line ([id number]). Procedure Section Indications: continuous blood pressure monitoring and blood sampling needed. Consent: informed consent was obtained for the procedure. Skin Prep: Chloraprep. Orientation: Right. Site: radial. Site Identification: ultrasound guided with sterile sleeve and gel and palpation. Sterile Technique: cap and mask. Gauge: 20. Seldinger Technique Used? Yes Number of Attempts: 1. Line Secured with: tape and Tegaderm. Procedure Tolerance: performed while patient under general anesthesia. Events: none. Patient Sedated? Yes Local Anesthetic Used? No Sedation Types: general anesthesia Staff Section Anesthesia Provider: Alphonse Wharton DO, Performed the procedure Hossein Clement MD GENERAL ANESTHESIA ORDERABLES * ETT LINE PERFORMABLE (03/12/2023 3:56 PM INSTRUMENTATION SPECIALIST) Narrative Alphonse Wharton DO - 03/12/2023 3:56 PM INSTRUMENTATION SPECIALIST Alphonse Wharton DO 03/12/2023 3:57 PM Endotracheal Tube Placement: Patient Location: OR. Intubation Event Date/Time: 03/12/2023 3:20 PM Procedure: intubation ([id number]). Procedure Section: Sedation: under general anesthesia. Indications for Airway Management: anesthesia Induction: standard IV Patient Position: sniffing and supine Mask Ventilation: easy. Blade Type: [...] auscultation and CO2 monitor Tube secured with: adhesive tape. Dentition unchanged? Yes Difficult Airway? No. Procedure Start Time: 03/12/2023 3:20 PM. Staff Section Anesthesia Provider: Alphonse Wharton DO, Performed the procedure Hossein Clement MD GENERAL ANESTHESIA ORDERABLES * GLUCOSE - POINT OF CARE (03/12/2023 2:33 PM INSTRUMENTATION SPECIALIST) Only the most recent of4 resultswithin the time period is included. Pathologist [facility] Glucose WB/POC 99 70 - 115 mg/dL 03/12/2023 3:14 PM INSTRUMENTATION SPECIALIST [facility] Specimen Type Venous 03/12/2023 3:14 PM INSTRUMENTATION SPECIALIST [facility] Blood BLOOD SPECIMEN / Unknown 03/12/2023 2:33 PM INSTRUMENTATION SPECIALIST 03/12/2023 3:14 PM INSTRUMENTATION SPECIALIST Monty Myers MD LAB - POINT OF CARE ORDERABLES Performing Organization Address City/[facility]/ZIP Co de Phone Number [facility] [address] [place] [address], [place] [phone] * TYPE + SCREEN PANEL (03/11/2023 8:42 AM INSTRUMENTATION SPECIALIST) Only the most recent of2 resultswithin the time period is included. Antibody Screen NEG 3 10:03 AM INSTRUMENTATION SPECIALIST [facility] ABO Rh A POS 03/11/2023 10:03 AM INSTRUMENTATION SPECIALIST [facility] Blood Bank BLOOD SPECIMEN / Unknown Lab Venipuncture / Unknown 03/11/2023 8:42 AM INSTRUMENTATION SPECIALIST 03/11/2023 9:27 AM INSTRUMENTATION SPECIALIST Omar John MD LAB - BLOOD BANK ORD ERABLES Performing Organization Address City/[facility]/ZIP Co de Phone Number [facility] [address] [place] [address], [place] [phone] * (ABNORMAL) TSH REFLEX FREE T4 (03/08/2023 1:54 AM INSTRUMENTATION SPECIALIST) Only the most recent of2 resultswithin the time period is included. TSH 7.028(H) 0.350 - 4.940 uIU/mL 03/08/2023 7:46 AM INSTRUMENTATION SPECIALIST [facility] Blood BLOOD SPECIMEN / Unknown Lab Venipuncture / Unknown 03/08/2023 1:54 AM INSTRUMENTATION SPECIALIST 03/08/2023 3:14 AM INSTRUMENTATION SPECIALIST Omar John MD LAB - CHEMISTRY [facility] [address] [address], [facility] [phone] * T4 FREE (03/08/2023 1:54 AM INSTRUMENTATION SPECIALIST) Only the most recent of4 resultswithin the time period is included. T4 Free 0.7 0.7 - 1.5 ng/dL 03/08/2023 8:19 AM INSTRUMENTATION SPECIALIST [facility] Blood BLOOD SPECIMEN / Unknown Lab Venipuncture / Unknown 03/08/2023 1:54 AM INSTRUMENTATION SPECIALIST 03/08/2023 3:14 AM INSTRUMENTATION SPECIALIST Omar John MD LAB - CHEMISTRY [facility] Performing Organization Address City/[facility]/ZIP Co de Phone Number [address] [address], [facility] [phone] * (ABNORMAL) CORTISOL BLOOD AM (03/07/2023 6:30 AM INSTRUMENTATION SPECIALIST) Cortisol AM 25.9(H) 3.7 - 19.4 ug/dL 03/07/2023 7:25 AM INSTRUMENTATION SPECIALIST [facility] Blood BLOOD SPECIMEN / Unknown Lab Venipuncture / Unknown 03/07/2023 6:30 AM INSTRUMENTATION SPECIALIST 03/07/2023 6:41 AM INSTRUMENTATION SPECIALIST Narrative [facility] - 03/07/2023 7:25 AM INSTRUMENTATION SPECIALIST Normal cortisol levels are generally highest in the morning hours and lowest from late evening through 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 The PM measurements of cortisol run approximately one-half to one-third of the AM values. Omar John MD LAB - CHEMISTRY [facility] Organization Address City/State/ZIP Co de Phone Number [facility] [address] [place] [address], [facility] [phone] * US ABDOMEN LIMITED (03/05/2023 1:33 PM INSTRUMENTATION SPECIALIST) Anatomical Region Laterality Modality Abdomen Ultrasound 03/05/2023 2:06 PM INSTRUMENTATION SPECIALIST Impressions 03/05/2023 3:22 PM INSTRUMENTATION SPECIALIST IMPRESSION: 1.No discrete hepatic lesion or intrahepatic biliary ductal dilatation. 2.Redemonstrated pericholecystic fluid likely represents previously seen hemorrhage within the gallbladder fossa. 3.Otherwise no evidence of cholelithiasis or acute cholecystitis. 4.Partial visualization of a left-sided pleural effusion. > Dictated by Jaydon Cox MD (vice president of talent management). > Dictated by Jaydon Cox (Telephonic Rn) 03/05/2023 2:06 PM ILeonel have personally reviewed and interpreted this examination/study. > Interpreting Provider: Leonel Birch on 03/05/2023 3:22 PM Narrative 03/05/2023 3:22 PM INSTRUMENTATION SPECIALIST PROCEDURE: US ABDOMEN LIMITED, DATE/TIME OF EXAM: 03/05/2023 1:44 PM, LOCATION [facility] INDICATION: R79.89: LFT elevation ADDITIONAL CLINICAL INFORMATION: [...] DATE/TIME OF EXAM: 03/05/2023 1:44 PM, LOCATION [facility] INDICATION: R79.89: LFT elevation ADDITIONAL CLINICAL INFORMATION: [...] effusion. > Dictated by Jaydon Cox MD (vice president of talent management). > Dictated by Jaydon Cox (Telephonic Rn) 03/05/2023 2:06 PM Leonel Lezama have personally reviewed and interpreted this examination/study. > Interpreting Provider: Leonel Birch on 03/05/2023 3:22 PM Omar John MD US ORDERABLES * HEPATITIS C AB SCREEN RFLX NAAT QUANT (03/05/2023 11:44 AM INSTRUMENTATION SPECIALIST) Hepatitis C Antibody Non-react john Non-reac tive 03/05/2023 12:57 PM INSTRUMENTATION SPECIALIST [facility] Comment:Hepatitis C Antibody screen indicates no serologic evidence of past or current infection with Hepatitis C Virus. Patients with unexplained liver disease who are immunocompromised or suspected of having acute Hepatitis C infection may benefit from Nucleic Acid Test (SANJANA) for Hepatitis C Viral RNA to confirm Hepatitis C status. Blood BLOOD SPECIMEN / Unknown Lab Venipuncture / Unknown 03/05/2023 11:44 AM INSTRUMENTATION SPECIALIST 03/05/2023 11:47 AM INSTRUMENTATION SPECIALIST Omar John MD LAB - CHEMISTRY [facility] [address] [address], [facility] [phone] * HEPATITIS B PANEL (03/05/2023 11:44 AM INSTRUMENTATION SPECIALIST) Pathologist [facility] Hepatitis B Virus Surface Antibody Non-reacti ve Non-react john 03/05/2023 12:57 PM INSTRUMENTATION SPECIALIST [facility] Comment: < 8 mIU/mL Hepatitis B surface Antibody (HBsAb). Nonreactive for HBsAb - individual is considered not immune to Hepatitis B Virus infection. Hepatitis B Virus Surface Antigen Non-reacti ve Non-react john 03/05/2023 12:57 PM INSTRUMENTATION SPECIALIST [facility] Hepatitis B Core Virus Antibody IgM Non-reacti ve Non-react john 03/05/2023 12:57 PM INSTRUMENTATION SPECIALIST [facility] Blood BLOOD SPECIMEN / Unknown Lab Venipuncture / Unknown 03/05/2023 11:44 AM INSTRUMENTATION SPECIALIST 03/05/2023 11:47 AM INSTRUMENTATION SPECIALIST Omar John MD LAB - CHEMISTRY [facility] Performing Organization Address City/[facility]/ZIP Co de Phone Number [address] [address], [place] [phone] * (ABNORMAL) CBC W/O DIFFERENTIAL (03/05/2023 2:56 AM INSTRUMENTATION SPECIALIST) Only the most recent of5 resultswithin the time period is included. WBC 12.4(H) 3.5 - 10.5 10 3/uL 03/05/2023 3:43 AM [facility] RBC 2.44(L) 3.80 - 5.20 10 6/uL 03/05/2023 3:43 AM [facility] Hemoglobin 7.3(L) 12.0 - 15.6 g/dL 03/05/2023 3:43 AM [facility] Hematocrit 22.4(L) 35.0 - 45.0 % 03/05/2023 3:43 AM [facility] MCV 91.8 80.7 - 98.3 fL 03/05/2023 3:43 AM [facility] MCH 29.9 26.7 - 34.0 pg 03/05/2023 3:43 AM [facility] MCHC 32.6 30.8 - 35.9 g/dL 03/05/2023 3:43 AM [facility] RDW-SD 47.1 36.0 - 50.0 fL 03/05/2023 3:43 AM [facility] RDW-CV 14.3 11.2 - 14.8 % 03/05/2023 3:43 AM [facility] Platelet Count 187 150 - 400 10 3/uL 03/05/2023 3:43 AM [facility] MPV 11.3 9.4 - 12.9 fL 03/05/2023 3:43 AM [facility] nRBC Absolute 0.02(H) 0 10 3/uL 03/05/2023 3:43 AM [facility] nRBC Auto 0.2(H) 0 /100 WBC 03/05/2023 3:43 AM [facility] Blood BLOOD SPECIMEN / Unknown Lab Venipuncture / Unknown 03/05/2023 2:56 AM INSTRUMENTATION SPECIALIST 03/05/2023 3:16 AM INSTRUMENTATION SPECIALIST Charlie Barnes MD LAB - HEMATOLOGY OR DERABLES Performing Organization Address City/State/[facility] Co de Phone Number [facility] [address] [place] [address], [facility] [phone] * (ABNORMAL) RENAL FUNCTION PANEL (03/05/2023 2:56 AM INSTRUMENTATION SPECIALIST) BUN 25 7 - 26 mg/dL 03/05/2023 3:47 AM [facility] Creatinine 0.91 0.56 - 0.96 mg/dL 03/05/2023 3:47 AM [facility] Sodium 137 136 - 145 mmol/L 03/05/2023 3:47 AM [facility] Potassium 4.1 3.5 - 4.5 mmol/L 03/05/2023 3:47 AM [facility] Chloride 104 98 - 107 mmol/L 03/05/2023 3:47 AM [facility] CO2 22 22 - 29 mmol/L 03/05/2023 3:47 AM [facility] Glucose 103 70 - 115 mg/dL 03/05/2023 3:47 AM [facility] Albumin 2.7(L) 3.4 - 5.0 g/dL 03/05/2023 3:47 AM [facility] Calcium 8.2(L) 8.4 - 10.2 mg/dL 03/05/2023 3:47 AM [facility] Phosphorus 2.9 2.9 - 5.1 mg/dL 03/05/2023 3:47 AM [facility] Anion Gap 11 6 - 16 03/05/2023 3:47 AM [facility] BUN/Creatinine Ratio 27(H) 7 - 23 03/05/2023 3:47 AM [facility] Osmolality Calculated 289 275 - 295 mOsm/kg 03/05/2023 3:47 AM [facility] eGFR by CKD-EPI 63(L) >=90 mL/min/1.7 3 m2 03/05/2023 3:47 AM [facility] Blood BLOOD SPECIMEN / Unknown Lab Venipuncture / Unknown 03/05/2023 2:56 AM INSTRUMENTATION SPECIALIST 03/05/2023 3:16 AM [facility] Barrington Jensen MD LAB - CHEMISTRY ORD ERABLES [facility] [address] [place] [address], [facility] [phone] * (ABNORMAL) HEPATIC FUNCTION PANEL (03/05/2023 2:56 AM INSTRUMENTATION SPECIALIST) Protein Total 5.4(L) 6.0 - 8.3 g/dL 023 8:22 AM [facility] Albumin 2.7(L) 3.4 - 5.0 g/dL 03/05/2023 8:22 AM [facility] Bilirubin Total 0.7 0.2 - 1.2 mg/dL 02/08 8:22 AM [facility] Bilirubin Conjugated 0.3 0.1 - 0.5 mg/dL 03/05/2023 8:22 AM [facility] Bilirubin Unconjugated 0.4 Unconjugated Bilirubin is a calculated value: Reference ranges have not been established. mg/dL 03/05/2023 8:22 AM [facility] Alkaline Phosphatase 110 40 - 150 U/L 03/05/2023 8:22 AM [facility] ALT 464(H) 5 - 55 U/L 03/05/2023 8:22 AM [facility] AST 313(H) 5 - 34 U/L 03/05/2023 8:22 AM [facility] Albumin/Globulin Ratio 1.0(L) 1.1 - 2.3 03/05/2023 8:22 AM [facility] Blood BLOOD SPECIMEN / Unknown Lab Venipuncture / Unknown 03/05/2023 2:56 AM INSTRUMENTATION SPECIALIST 03/05/2023 3:16 AM INSTRUMENTATION SPECIALIST Barrington Jensen MD LAB - CHEMISTRY ORD ERABLES [facility] [address] [place] [address], [facility] [phone] * XR CHEST 1VW (03/04/2023 3:40 PM INSTRUMENTATION SPECIALIST) Anatomical Region Laterality Modality Chest Radiographic Fabi ging 03/05/2023 1:13 PM INSTRUMENTATION SPECIALIST Narrative 03/06/2023 11:56 AM INSTRUMENTATION SPECIALIST PROCEDURE: XR CHEST 1VW PORTABLE, XR CHEST 1VW, DATE/TIME OF EXAM: 03/05/2023 12:08 PM, LOCATION [facility] INDICATION: J94.2: Hemopneumothorax on right ADDITIONAL CLINICAL [...] Report dictated by Aamir Morris MD, MD (vice president of talent management). I, Morro Obrgeon MD have personally reviewed and interpreted this examination/study. > Interpreting Provider: Morro Obregon MD on 03/06/2023 11:56 AM Procedure Note Morro Obregon MD - 03/06/2023 PROCEDURE: XR CHEST 1VW PORTABLE, XR CHEST 1VW, DATE/TIME OF EXAM: 03/05/2023 12:08 PM, LOCATION [facility] INDICATION: J94.2: Hemopneumothorax on right ADDITIONAL CLINICAL [...] intact. Report dictated by Aamir Morris MD, (vice president of talent management). I, Morro Obregon MD have personally reviewed and interpreted this examination/study. > Interpreting Provider: Morro Obregon MD on 03/06/2023 11:56 AM Jerson So MD DIAGNOSTIC IMAGING O RDERABLES * (ABNORMAL) BASIC METABOLIC PANEL (CALCIUM TOTAL) (03/04/2023 2:45 AM INSTRUMENTATION SPECIALIST) Only the most recent of4 resultswithin the time period is included. BUN 22 7 - 26 mg/dL 03/04/2023 3:54 AM [facility] Creatinine 0.91 0.56 - 0.96 mg/dL 03/04/2023 3:54 AM [facility] Sodium 136 136 - 145 mmol/L 03/04/2023 3:54 AM [facility] Potassium 3.8 3.5 - 4.5 mmol/L 03/04/2023 3:54 AM [facility] Chloride 104 98 - 107 mmol/L 03/04/2023 3:54 AM [facility] CO2 24 22 - 29 mmol/L 03/04/2023 3:54 AM [facility] Glucose 109 70 - 115 mg/dL 03/04/2023 3:54 AM [facility] Calcium 8.7 8.4 - 10.2 mg/dL 03/04/2023 3:54 AM [facility] Anion Gap 8 6 - 16 03/04/2023 3:54 AM [facility] BUN/Creatinine Ratio 24(H) 7 - 23 03/04/2023 3:54 AM [facility] Osmolality Calculated 286 275 - 295 mOsm/kg 03/04/2023 3:54 AM [facility] eGFR by CKD-EPI 63(L) >=90 mL/min/1.7 3 m2 03/04/2023 3:54 AM [facility] Blood BLOOD SPECIMEN / Unknown Lab Venipuncture / Unknown 03/04/2023 2:45 AM INSTRUMENTATION SPECIALIST 03/04/2023 3:27 AM INSTRUMENTATION SPECIALIST Charlie Barnes MD LAB - CHEMISTRY ORD ERABLES [facility] [address] [place] [address], [facility] [phone] * (ABNORMAL) URINALYSIS W/MICROSCOPIC NO CULTURE (03/01/2023 9:15 PM INSTRUMENTATION SPECIALIST) Color UA Yellow Straw, Yellow 03/01/2023 11:14 PM [facility] Clarity UA Clear Clear 03/01/2023 11:14 PM [facility] Specific [place] UA 1.045(H) 1.005 - 1.030 03/01/2023 11:14 PM [facility] pH UA 5.0 5.0 - 8.0 pH 03/01/2023 11:14 PM [facility] Protein UA 1+(A) Negative 03/01/2023 11:14 PM [facility] Glucose UA Negative Negative 03/01/2023 11:14 PM [facility] Ketone UA Negative Negative 03/01/2023 11:14 PM [facility] Bilirubin UA Negative Negative 03/01/2023 11:14 PM [facility] Blood UA Negative Negative 03/01/2023 11:14 PM [facility] Nitrite UA Negative Negative 03/01/2023 11:14 PM [facility] Leukocyte Esterase Negative Negative 03/01/2023 11:14 PM [facility] Urobilinogen UA Negative Negative mg/dL 03/01/2023 11:14 PM [facility] RBC UA 3-5 None Seen, 0-2, 3-5 /HPF 03/01/2023 11:14 PM [facility] WBC UA None Seen None Seen, 0-5 /HPF 03/01/2023 11:14 PM [facility] Bacteria UA Trace(A) None /HPF 03/01/2023 11:14 PM [facility] Squamous Epithelial Cells UA 0-2 None Seen, 0-2, 3-5 /HPF 03/01/2023 11:14 PM [facility] Mucus UA 1+ /LPF 03/01/2023 11:14 PM [facility] Urine URINE SPECIMEN OBTAINED BY CLEAN CATCH PROCEDURE / Unknown Collection / Unknown 03/01/2023 9:15 PM INSTRUMENTATION SPECIALIST 03/01/2023 10:30 PM INSTRUMENTATION SPECIALIST Narrative [facility] - 03/01/2023 11:14 PM INSTRUMENTATION SPECIALIST Charlie Barnes MD LAB - URINALYSIS OR DERABLES [facility] [address] [place] [address], [facility] [phone] * BLOOD TYPE VERIFICATION (03/01/2023 7:08 PM INSTRUMENTATION SPECIALIST) ABO Rh A POS 03/01/2023 7:5 4 PM INSTRUMENTATION SPECIALIST [facility] Blood Bank BLOOD SPECIMEN / Unknown Lab Venipuncture / Unknown 03/01/2023 7:08 PM INSTRUMENTATION SPECIALIST 03/01/2023 7:27 PM INSTRUMENTATION SPECIALIST Charlie Barnes MD LAB - BLOOD BANK OR DERABLES [facility] [address] [place] [address], [place] [phone] * XR CHEST 2VW (03/01/2023 4:02 PM INSTRUMENTATION SPECIALIST) Only the most recent of2 resultswithin the time period is included. Anatomical Region Laterality Modality Chest Radiographic Fabi ging 03/01/2023 3:59 PM INSTRUMENTATION SPECIALIST Narrative 03/02/2023 10:08 AM INSTRUMENTATION SPECIALIST PROCEDURE: XR CHEST 2VW, DATE/TIME OF EXAM: 03/01/2023 4:02 PM, LOCATION [facility] INDICATION: [id number]: Trauma Ordering Provider Reason For [...] intact. Report dictated by Paul Arango MD (vice president of talent management). Deuce Lezama DO have personally reviewed and interpreted this examination/study. > Interpreting Provider: Deuce Ramirez DO on 03/02/2023 10:08 AM Procedure Note Deuce Ramirez DO - 03/02/2023 PROCEDURE: XR CHEST 2VW, DATE/TIME OF EXAM: 03/01/2023 4:02 PM, LOCATION [facility] INDICATION: [id number]: Trauma Ordering Provider Reason For [...] intact. Report dictated by Paul Arango MD (vice president of talent management). Deuce Lezama DO have personally reviewed and interpreted this examination/study. > Interpreting Provider: Deuce Ramirez DO on 03/02/2023 10:08 AM Charlie Barnes MD DIAGNOSTIC IMAGING ORDERABLES * (ABNORMAL) TROPONIN-I HIGH SENSITIVE (03/01/2023 3:22 PM INSTRUMENTATION SPECIALIST) Only the most recent of2 resultswithin the time period is included. Troponin I High Sensitive 19(H) <=14 ng/L 03/01/2023 4:00 PM INSTRUMENTATION SPECIALIST [facility] Blood BLOOD SPECIMEN / Unknown Venipuncture / Unknown 03/01/2023 3:22 PM INSTRUMENTATION SPECIALIST 03/01/2023 3:26 PM INSTRUMENTATION SPECIALIST Charlie Barnes MD LAB - CHEMISTRY ORD ERABLES [facility] [address] [place] [address], [facility] [phone] * CT CHEST ABDOMEN PELVIS W CONT - Abdomen-pelvis trauma, blunt or penetrating (03/01/2023 2:31 PM INSTRUMENTATION SPECIALIST) Anatomical Region Laterality Modality Chest, Abdomen, Pelvis Computed Tomography 03/01/2023 2:24 PM INSTRUMENTATION SPECIALIST Impressions 03/01/2023 3:50 PM INSTRUMENTATION SPECIALIST Impression: 1.Moderate right pneumothorax. Moderate right pleural [...] 03/01/2023 3:50 PM Narrative 03/01/2023 3:50 PM INSTRUMENTATION SPECIALIST Procedure Information DATE: 03/01/2023 2:34 PM EXAMINATION: [...] T/L-spine trauma, Spine fracture (03/01/2023 2:31 PM INSTRUMENTATION SPECIALIST) Anatomical Region Laterality Modality Spine Computed Tomogra phy 03/01/2023 2:52 PM INSTRUMENTATION SPECIALIST Impressions 03/01/2023 7:17 PM INSTRUMENTATION SPECIALIST IMPRESSION: 1.No acute intracranial hemorrhage, midline shift, or significant mass effect. 2.No evidence of acute fracture in the cervical, thoracic, or lumbar spine. 3.Please refer to the separately dictated report of CT scan of the chest, abdomen and pelvis for intrathoracic and intra-abdominal findings. This study was dictated by vice president of talent management Paul Arango MD and reviewed and edited by the attending. IJacobo MD have personally reviewed and interpreted this examination/study. > Interpreting Provider: Jacobo Fermin MD on 03/01/2023 7:17 PM Narrative 03/01/2023 7:17 PM INSTRUMENTATION SPECIALIST PROCEDURE: CT HEAD WO CONTRAST, CT LUMBAR SPINE WO CONTRAST, CT THORACIC SPINE WO CONTRAST, CT CERVICAL SPINE WO CONTRAST, DATE/TIME OF EXAM: 03/01/2023 2:34 PM, LOCATION [facility] INDICATION: Trauma ADDITIONAL CLINICAL INFORMATION: Ordering Provider [...] of neural foraminal stenosis at these levels. Yygm-er-clremvek apical right pneumothorax. Biapical scarring. Thoracic spine: [...] DATE/TIME OF EXAM: 03/01/2023 2:34 PM, LOCATION [facility] INDICATION: Trauma ADDITIONAL CLINICAL INFORMATION: Ordering Provider [...] degree of neural foraminal stenosis atthese levels. Tifq-ni-geyyhbrq apical right pneumothorax. Biapical scarring. Thoracic spine: [...] intra-abdominal findings. This study was dictated by vice president of talent management Paul Arango MD and reviewed and edited by the attending. Jacobo Lezama MD have personally reviewed and interpretedthis examination/study. > Interpreting Provider: Jacobo Fermin MD on 03/01/2023 7:17 PM Charlie Barnes MD CT ORDERABLES * CT THORACIC SPINE WO CONTRAST - T/L-spine trauma, spine fracture (03/01/2023 2:31 PM INSTRUMENTATION SPECIALIST) Anatomical Region Laterality Modality Spine Computed Tomogra phy 03/01/2023 2:52 PM INSTRUMENTATION SPECIALIST Impressions 03/01/2023 7:17 PM INSTRUMENTATION SPECIALIST IMPRESSION: 1.No acute intracranial hemorrhage, midline shift, or significant mass effect. 2.No evidence of acute fracture in the cervical, thoracic, or lumbar spine. 3.Please refer to the separately dictated report of CT scan of the chest, abdomen and pelvis for intrathoracic and intra-abdominal findings. This study was dictated by vice president of talent management Paul Arango MD and reviewed and edited by the attending. Jacobo Lezama MD have personally reviewed and interpreted this examination/study. > Interpreting Provider: Jacobo Fermin MD on 03/01/2023 7:17 PM Narrative 03/01/2023 7:17 PM INSTRUMENTATION SPECIALIST PROCEDURE: CT HEAD WO CONTRAST, CT LUMBAR SPINE WO CONTRAST, CT THORACIC SPINE WO CONTRAST, CT CERVICAL SPINE WO CONTRAST, DATE/TIME OF EXAM: 03/01/2023 2:34 PM, LOCATION [facility] INDICATION: Trauma ADDITIONAL CLINICAL INFORMATION: Ordering Provider [...] of neural foraminal stenosis at these levels. Lmof-nc-wahomvlz apical right pneumothorax. Biapical scarring. Thoracic spine: [...] DATE/TIME OF EXAM: 03/01/2023 2:34 PM, LOCATION [facility] INDICATION: Trauma ADDITIONAL CLINICAL INFORMATION: Ordering Provider [...] degree of neural foraminal stenosis atthese levels. Vwbu-rb-uzncqrjo apical right pneumothorax. Biapical scarring. Thoracic spine: [...] intra-abdominal findings. This study was dictated by vice president of talent management Paul Arango MD and reviewed and edited by the attending. Jacobo Lezama MD have personally reviewed and interpretedthis examination/study. > Interpreting Provider: Jacobo Fermin MD on 03/01/2023 7:17 PM Charlie Barnes MD CT ORDERABLES * CT CERVICAL SPINE WO CONTRAST - C-Spine Trauma, Spine fracture (03/01/2023 2:31 PM INSTRUMENTATION SPECIALIST) Anatomical Region Laterality Modality Spine Computed Tomogra phy 03/01/2023 2:52 PM INSTRUMENTATION SPECIALIST Impressions 03/01/2023 7:17 PM INSTRUMENTATION SPECIALIST IMPRESSION: 1.No acute intracranial hemorrhage, midline shift, or significant mass effect. 2.No evidence of acute fracture in the cervical, thoracic, or lumbar spine. 3.Please refer to the separately dictated report of CT scan of the chest, abdomen and pelvis for intrathoracic and intra-abdominal findings. This study was dictated by vice president of talent management Paul Arango MD and reviewed and edited by the attending. Jacobo Lezama MD have personally reviewed and interpreted this examination/study. > Interpreting Provider: Jacobo Fermin MD on 03/01/2023 7:17 PM Narrative 03/01/2023 7:17 PM INSTRUMENTATION SPECIALIST PROCEDURE: CT HEAD WO CONTRAST, CT LUMBAR SPINE WO CONTRAST, CT THORACIC SPINE WO CONTRAST, CT CERVICAL SPINE WO CONTRAST, DATE/TIME OF EXAM: 03/01/2023 2:34 PM, LOCATION [facility] INDICATION: Trauma ADDITIONAL CLINICAL INFORMATION: Ordering Provider [...] of neural foraminal stenosis at these levels. Tshj-ok-fwhbdpyf apical right pneumothorax. Biapical scarring. Thoracic spine: [...] DATE/TIME OF EXAM: 03/01/2023 2:34 PM, LOCATION [facility] INDICATION: Trauma ADDITIONAL CLINICAL INFORMATION: Ordering Provider [...] degree of neural foraminal stenosis atthese levels. Kqns-cb-qmrlwsmt apical right pneumothorax. Biapical scarring. Thoracic spine: [...] intra-abdominal findings. This study was dictated by vice president of talent management Paul Arango MD and reviewed and edited by the attending. IJacobo MD have personally reviewed and interpretedthis examination/study. > Interpreting Provider: Jacobo Fermin MD on 03/01/2023 7:17 PM Charlie Barnes MD CT ORDERABLES * CT HEAD WO CONTRAST - Head Trauma, CSF leak, mental status changes (03/01/2023 2:31 PM INSTRUMENTATION SPECIALIST) Anatomical Region Laterality Modality Head Computed Tomogra phy 03/01/2023 2:52 PM INSTRUMENTATION SPECIALIST Impressions 03/01/2023 7:17 PM INSTRUMENTATION SPECIALIST IMPRESSION: 1.No acute intracranial hemorrhage, midline shift, or significant mass effect. 2.No evidence of acute fracture in the cervical, thoracic, or lumbar spine. 3.Please refer to the separately dictated report of CT scan of the chest, abdomen and pelvis for intrathoracic and intra-abdominal findings. This study was dictated by vice president of talent management Paul Arango MD and reviewed and edited by the attending. IJacobo MD have personally reviewed and interpreted this examination/study. > Interpreting Provider: Jacobo Fermin MD on 03/01/2023 7:17 PM Narrative 03/01/2023 7:17 PM INSTRUMENTATION SPECIALIST PROCEDURE: CT HEAD WO CONTRAST, CT LUMBAR SPINE WO CONTRAST, CT THORACIC SPINE WO CONTRAST, CT CERVICAL SPINE WO CONTRAST, DATE/TIME OF EXAM: 03/01/2023 2:34 PM, LOCATION [facility] INDICATION: Trauma ADDITIONAL CLINICAL INFORMATION: Ordering Provider [...] of neural foraminal stenosis at these levels. Ywii-tm-miadnblc apical right pneumothorax. Biapical scarring. Thoracic spine: [...] DATE/TIME OF EXAM: 03/01/2023 2:34 PM, LOCATION [facility] INDICATION: Trauma ADDITIONAL CLINICAL INFORMATION: Ordering Provider [...] degree of neural foraminal stenosis atthese levels. Bqoh-ro-lyjeuchg apical right pneumothorax. Biapical scarring. Thoracic spine: [...] intra-abdominal findings. This study was dictated by vice president of talent management Paul Arango MD and reviewed and edited by the attending. Jacobo Lezama MD have personally reviewed and interpretedthis examination/study. > Interpreting Provider: Jacobo Fermin MD on 03/01/2023 7:17 PM [address] MD [address] ORDERABLES * XR KNEE RIGHT 2VW OR LESS (03/01/2023 1:22 PM INSTRUMENTATION SPECIALIST) Anatomical Region Laterality Modality Lower Extremity Radiographic Fabi ging 03/01/2023 2:16 PM INSTRUMENTATION SPECIALIST Impressions 03/02/2023 11:32 AM INSTRUMENTATION SPECIALIST IMPRESSION: 1.No acute fracture or dislocation identified in right femur and right knee. 2.Total knee arthroplasty hardware appear intact, without evidence of loosening. Report dictated by Paul Arango MD (vice president of talent management). Deuce Lezama DO have personally reviewed and interpreted this examination/study. > Interpreting Provider: Deuce Ramirez DO on 03/02/2023 11:32 AM Narrative 03/02/2023 11:32 AM INSTRUMENTATION SPECIALIST PROCEDURE: XR FEMUR RIGHT 2VW, XR KNEE RIGHT 2VW OR LESS, DATE/TIME OF EXAM: 03/01/2023 1:22 PM, [facility] INDICATION: T14.90XA: Trauma COMPARISON: None. FINDINGS: Right [...] DATE/TIME OF EXAM: 03/01/2023 1:22 PM, LOCATION [facility] INDICATION: T14.90XA: Trauma COMPARISON: None. FINDINGS: Right [...] loosening. Report dictated by Paul Arango MD (vice president of talent management). Deuce Lezama DO have personally reviewed and interpreted this examination/study. > Interpreting Provider: Deuce Ramirez DO on 03/02/2023 11:32 AM Charlie Barnes MD DIAGNOSTIC IMAGING ORDERABLES * XR FEMUR RIGHT 2VW (03/01/2023 1:22 PM INSTRUMENTATION SPECIALIST) Anatomical Region Laterality Modality Lower Extremity Radiographic Fabi ging 03/01/2023 2:16 PM INSTRUMENTATION SPECIALIST Impressions 03/02/2023 11:32 AM INSTRUMENTATION SPECIALIST IMPRESSION: 1.No acute fracture or dislocation identified in right femur and right knee. 2.Total knee arthroplasty hardware appear intact, without evidence of loosening. Report dictated by Paul Arango MD (vice president of talent management). Deuce Lezama DO have personally reviewed and interpreted this examination/study. > Interpreting Provider: Deuce Ramirez DO on 03/02/2023 11:32 AM Narrative 03/02/2023 11:32 AM INSTRUMENTATION SPECIALIST PROCEDURE: XR FEMUR RIGHT 2VW, XR KNEE RIGHT 2VW OR LESS, DATE/TIME OF EXAM: 03/01/2023 1:22 PM, LOCATION [facility] INDICATION: T14.90XA: Trauma COMPARISON: None. FINDINGS: Right [...] DATE/TIME OF EXAM: 03/01/2023 1:22 PM, LOCATION [facility] INDICATION: T14.90XA: Trauma COMPARISON: None. FINDINGS: Right [...] evidence of loosening. Report dictated by Paul rAango MD (vice president of talent management). Deuce Lezama DO have personally reviewed and interpreted this examination/study. > Interpreting Provider: Deuce Ramirez DO on 03/02/2023 11:32 AM Charlie Barnes MD DIAGNOSTIC IMAGING ORDERABLES * XR PELVIS 1 OR 2VW (03/01/2023 1:10 PM INSTRUMENTATION SPECIALIST) Anatomical Region Laterality Modality Pelvis Radiographic Fabi ging 03/01/2023 2:14 PM INSTRUMENTATION SPECIALIST Impressions 03/02/2023 10:03 AM INSTRUMENTATION SPECIALIST IMPRESSION: No acute fracture identified. Report dictated by Paul Arango MD (vice president of talent management). Deuce Lezama DO have personally reviewed and interpreted this examination/study. > Interpreting Provider: Deuce Ramirez DO on 03/02/2023 10:03 AM Narrative 03/02/2023 10:03 AM INSTRUMENTATION SPECIALIST PROCEDURE: XR PELVIS 1 OR 2VW, DATE/TIME OF EXAM: 03/01/2023 1:22 PM, LOCATION [facility] INDICATION: Trauma Fracture suspected COMPARISON: None. FINDINGS: [...] DATE/TIME OF EXAM: 03/01/2023 1:22 PM, LOCATION [facility] INDICATION: Trauma Fracture suspected COMPARISON: None. FINDINGS: [...] identified. Report dictated by Paul Arango MD (vice president of talent management). I, Deuce Ramirez DO have personally reviewed and interpreted this examination/study. > Interpreting Provider: Deuce Ramirez DO on 03/02/2023 10:03 AM Charlie Barnes MD DIAGNOSTIC IMAGING ORDERABLES * (ABNORMAL) TEG 6 GLOBAL HEMOSTASIS W/ LYSIS (03/01/2023 1:09 PM INSTRUMENTATION SPECIALIST) Citrated Kaolin R (Reaction Time) 4.2(L) 4.6 - 9.1 min 03/01/2023 2:29 PM INSTRUMENTATION SPECIALIST [facility] Comment:CK R result below no rmal range. Consistent with hypercoagulable clotting factors. Citrated Kaolin LY30 (Lysis) 0.3 0.0 - 2.6 % 03/01/2023 2:29 PM INSTRUMENTATION SPECIALIST [facility] Citrated Functional Fibrinogen MA (Max Amplitude) 24.5 15.0 - 32.0 mm 03/01/2023 2:29 PM INSTRUMENTATION SPECIALIST [facility] Citrated RapidTEG MA (Max Amplitude) 65.7 52.0 - 70.0 mm 03/01/2023 2:29 PM INSTRUMENTATION SPECIALIST [facility] Blood BLOOD SPECIMEN / Unknown Venipuncture / Unknown 03/01/2023 1:09 PM INSTRUMENTATION SPECIALIST 03/01/2023 1:18 PM INSTRUMENTATION SPECIALIST Charlie Barnes MD LAB - HEMATOLOGY OR DERABLES Performing Organization Address [facility] Co de Phone Number [facility] [address] [place] [address], [facility] [phone] * (ABNORMAL) TEG 6S PLATELET MAPPING (03/01/2023 1:09 PM INSTRUMENTATION SPECIALIST) TEGPLM (Max Amplitude) Koalin 66.0 53.0 - 68.0 mm 03/01/2023 2:59 PM [facility] TEGPLM (Max Amplitude) ACTF 13.2 2.0 - 19.0 mm 03/01/2023 2:59 PM [facility] TEGPLM (Max Amplitude) ADP 54.7 45.0 - 69.0 mm 03/01/2023 2:59 PM [facility] TEGPLM (Max Amplitude) AA 63.8 51.0 - 71.0 mm 03/01/2023 2:59 PM [facility] TEGPLM %Inhibition ADP 21.4(H) 0.0 - 17.0 % 03/01/2023 2:59 PM [facility] TEGPLM %Inhibition AA 4.2 0.0 - 11.0 % 03/01/2023 2:59 PM [facility] TEGPLM %Aggregation ADP 78.6(L) 83.0 - 100.0 % 03/01/2023 2:59 PM [facility] TEGPLM % Aggregation AA 95.8 89.0 - 100.0 % 03/01/2023 2:59 PM [facility] Blood BLOOD SPECIMEN / Unknown Venipuncture / Unknown 03/01/2023 1:09 PM INSTRUMENTATION SPECIALIST 03/01/2023 1:18 PM INSTRUMENTATION SPECIALIST Charlie Barnes MD LAB - HEMATOLOGY OR DERABLES [address] [address], [facility] [phone] * PTT [facility] (03/01/2023 12:56 PM INSTRUMENTATION SPECIALIST) APTT 32.1 23.0 - 38.4 Seconds 03/01/2023 1:26 PM INSTRUMENTATION SPECIALIST [facility] Comment:Suggested therapeuti c range for full dose I.V. unfractionated heparin therapy for venous thromboembolism is 71 to 109 seconds. Blood BLOOD SPECIMEN / Unknown Venipuncture / Unknown 03/01/2023 12:56 PM INSTRUMENTATION SPECIALIST 03/01/2023 1:05 PM INSTRUMENTATION SPECIALIST Charlie Barnes MD LAB - COAGULATION O RDERABLES Performing Organization Address [facility] Co de Phone Number [address] [address], [facility] [phone] * TUBERCULOSIS (PPD) INTRADERMAL (05/25/2015) [facility] IMM-INJ ORDERABLES * TSH (04/16/2015 8:37 AM INSTRUMENTATION SPECIALIST) Only the most recent of5 resultswithin the time period is included. TSH 2.614 0.35 - 4.94 uIU/mL 04/16/2015 7:59 PM INSTRUMENTATION SPECIALIST [facility] Blood BLOOD SPECIMEN / Unknown Venipuncture / Unknown 04/16/2015 8:37 AM INSTRUMENTATION SPECIALIST 04/16/2015 8:45 AM INSTRUMENTATION SPECIALIST [facility] LAB - CHEMISTRY OR DERABLES Performing Organization Address City/[facility]/ZIP Co de Phone Number [facility] [address] * AMB REFERRAL TO ORTHOPEDICS (09/09/2014) [facility] OUTPATIENT REFERRA LS * XR HIP 2+ [...] other bony abnormalities. IMPRESSION Normal left hip. eSble Charles HAND BINDER CUTTER-DRIVER GUARD DIAGNOSTIC IMAGING ORDERABLES * XR LUMBAR SPINE [...] L3-L4, L4-L5 and L5-S1. Procedure Note Jed Rsuh MD - 08/24/2014 LUMBAR SPINE (08/24/2014) CLINICAL [...] Progressive degenerative changes as described. [facility] ORDERABLES * (ABNORMAL) URINALYSIS AUTO - POINT OF CARE (AMB) [facility] (08/24/2014) Clarity UA POCT clear Color UA POCT yellow Glucose UA Negative Negative Bilirubin UA POCT Negative Negative Ketone UA Negative Negative Specific [place] UA POCT 1.010 1.002 - 1.030 Blood UA POCT Trace-Lysed( A) Negative pH UA 6.5 5.0 - 8.0 pH units Protein UA POCT Negative Negative Urobilinogen UA 0.2 0.1 - 1.0 Nitrite UA POCT Negative Negative Leukocyte UA Negative Negative QC Verified Yes Urine specimen (specimen) URINE / Unknown 08/24/2014 [facility] LAB - POINT OF CAR E ORDERABLES * IRON + TRANSFERRIN PANEL (04/27/2014 11:56 AM INSTRUMENTATION SPECIALIST) [facility] Iron 116 50 - 170 ug/dL 04/27/2014 8:18 PM INSTRUMENTATION SPECIALIST [facility] Transferrin 324 180 - 382 mg/dL 04/27/2014 8:18 PM INSTRUMENTATION SPECIALIST [facility] TIBC Calculated 405 261 - 497 mg/dL 04/27/2014 8:18 PM [facility] Iron Saturation % 29 11 - 45 % 04/27/2014 8:18 PM [facility] Blood BLOOD SPECIMEN / Unknown Venipuncture / Unknown 04/27/2014 11:56 AM INSTRUMENTATION SPECIALIST 04/27/2014 11:56 AM INSTRUMENTATION SPECIALIST [facility] - CHEMISTRY OR DERABLES [facility] [address] * FERRITIN (04/27/2014 11:56 AM INSTRUMENTATION SPECIALIST) Ferritin 21 5 - 204 ng/mL 04/27/2014 8:53 PM INSTRUMENTATION SPECIALIST [facility] Blood BLOOD SPECIMEN / Unknown Venipuncture / Unknown 04/27/2014 11:56 AM INSTRUMENTATION SPECIALIST 04/27/2014 11:56 AM INSTRUMENTATION SPECIALIST [facility] Charles APRN-DRIVER GUARD LAB - CHEMISTRY OR DERABLES Performing Organization Address City/State/[facility] Co de Phone Number [facility] [address] * XR CERVICAL SPINE MIN 4+ [...] fracture Severe cervical spondylosis as described. [facility] WHITTENDRIVER GUARD DIAGNOSTIC IMAGING ORDERABLES * WILDER SCREENING DIGITAL [...] and appropriate action should be taken. [facility] MAMMO ORDERABLES * DEXA BONE DENSITY 2 [...] machine if possible. [facility] DEXA ORDERABLES * LIPID PROFILE (08/13/2013 8:16 [...] 7:06 PM CDT Narrative Resulting Agency Comment [facility] [id number] [facility] [phone] [place] Charles JABIER-DRIVER GUARD LAB - CHEMISTRY OR DERABLES [facility] INSURANCE BILL * OCCULT BLOOD FECES 1-3 IMMUNOASSAY (07/23/2013 4:40 PM CDT) Only the most recent of2 resultswithin the time period is included. Occult Blood Immunoassay Negative Negative [facility] INSURANCE BILL STOOL SPECIMEN / Unknown 07/23/2013 4:40 PM CDT 07/23/2013 7:09 PM CDT Narrative Resulting Agency Comment [facility] [address] [facility] [phone] [place] HAND BINDER CUTTER-DRIVER GUARD LAB - BODY FLUID O RDERABLES [facility] INSURANCE BILL * VITAMIN D 25-HYDROXY (07/01/2013 9:19 AM CDT) Vitamin D, 25 Hydroxy 52.6 30.0 - 100.0 ng/mL [facility] INSURANCE BILL Comment: Vitamin D deficiency has been defined by the [place] of [employer] and an Endocrine Society practice guideline as a level of serum 25-OH vitamin D less than 20 ng/mL (1,2). The Endocrine Society went on to further define vitamin D insufficiency as a level between 21 and 29 ng/mL (2). 1. IOM ([place] of [employer]). 2010. Dietary reference intakes for calcium and D. [place]: The National Academies Press. 2. Cecy MF, Natalie THOMPSON, Francisco DESAI, et al. Evaluation, treatment, and prevention of vitamin D deficiency: an Endocrine Society clinical practice guideline. JCEM. 2010; 96(7):1911-30. Blood specimen (specimen) BLOOD SPECIMEN / Unknown 07/01/2013 9:19 AM CDT 07/01/2013 7:20 PM CDT Narrative Resulting Agency Comment [facility] [address] [facility] [phone] [place] Charles HAND BINDER CUTTER-DRIVER GUARD LAB - CHEMISTRY OR DERABLES [facility] INSURANCE BILL * (ABNORMAL) VITAMIN B12 (07/01/2013 9:19 AM CDT) Vitamin B12 1,802(H) 211 - 946 pg/mL [facility] INSURANCE BILL Blood specimen (specimen) BLOOD SPECIMEN / Unknown 07/01/2013 9:19 AM CDT 07/01/2013 7:20 PM CDT Narrative Resulting Agency Comment [facility] [address] [facility] [phone] [place] HAND BINDER CUTTER-DRIVER GUARD LAB - CHEMISTRY OR DERABLES [facility] INSURANCE BILL * GROSS + MICRO EXAM (06/05/1997 11:40 AM INSTRUMENTATION SPECIALIST) Result CASE NUMBER [id number] Comment: ORDERING PHYSICIAN GANESH BOWIE SPECIMEN TYPE Uterus Tubes Ovarie Date of Surgery 06/05/1997 0820 SPECIMEN SOURCE Uterus, tubews and ovaries *Pre Op Dx Pelvic pain GROSS DESCRIPTION Received in fixative and labeled Elisha Cruz, [...] longitudinal sections, distal uterine cervix. Grossed by ANGELICA LYONS M.D. *MICROSCOPIC EXAM Five slides with sections of the uterine wall generously sampled in cassettes A4-A8 show a benign, inactive, attenuated endometrium, characterized by a densely cellular stroma containing a few straight to mildly cystically dilated glands lined with columnar epithelium. Occasional pink laminated concrements and pink secretory material are focally seen within glandular lumina. Slide A7 contains prominent deposits of benign endometrial [...] subserosal cyst on the left. Read by ANGELICA LYONS M.D. DIAGNOSIS 105.0 GRAM UTERUS AND CERVIX WITH BILATERAL FALLOPIAN TUBES AND OVARIES (1) BENIGN ATTENUATED AND INACTIVE ENDOMETRIUM. (2) ADENOMYOSIS. (3) SIX BENIGN LEIOMYOMATA, UTERINE, INTRAMURAL AND SUBENDOMETRIAL. (4) UTERINE CERVIX SHOWING (A) BENIGN ENDOCERVICAL POLYP. (B) MILD TO MODERATE ACUTE AND CHRONIC CERVICITIS. (5) 2.4 GRAM BENIGN RIGHT OVARY WITH MULTIPLE OLD HYALINIZED CORPORA ALBICANTIA. (6) 4.7 GRAM BENIGN LEFT OVARY WITH MULTIPLE OLD CORPORA ALBICANTIA AND OCCASIONAL HEMORRHAGE INTO OLD CORPUS ALBICANS. (7) BENIGN ATROPHIC RIGHT AND LEFT FALLOPIAN TUBES WITH ONE SMALL SUBSEROSAL LIPOMA AND OCCASIONAL SMALL BENIGN PARATUBAL CYSTS. CODE 4,8 CPT LEVEL V 89599 RELEASED BY ANGELICA Hensley MISCELLANEOUS SAMPLES / Unknown 06/05/1997 11:40 AM INSTRUMENTATION SPECIALIST 06/05/1997 12:29 PM INSTRUMENTATION SPECIALIST Historical Provider LAB - PATHOLOGY/C YTOLOGY ORDERABLES Care Teams System Planning Engineer Relationship Specialty Start Date End Date [place], HAND BINDER CUTTER-DRIVER GUARD [address] [place] [address] PCP - General Family Medicine 07/30/12
== END 2024-05-29 10:47 | disposition home or self-care (01) ==
PROVIDERS: PCP Family Medicine; Visit Provider Neurological Surgery
DX: M16.0 Bilateral primary osteoarthritis of hip (principal)
CPT/HCPCS: 72170

== ENCOUNTER 2024-10-17 10:29 | Outpatient (CLI) | payer MEDICARE, BC, SELFPAY ==
--- NOTE | ~2024-10-17 | CT_ITS ---
CT thoracic spine wo con Ordering provider: Flavio Cedeño MD History: . Post Laminectomy, chronic back pain . Comparison: None. Technique: CT thoracic spine without contrast. Automated exposure control and iterative reconstructi on technique were employed. The dose-length product was 196.75 mGy-cm. FINDINGS: VERTEBRAE: Normal height and alignment. No subluxation or visible acute fracture. DISC SPACES: Narrowing of the disc T11-T12 and T12-L1. Multilevel facet joint disease. No significant stenosis as visualized. Multilevel intervertebral foraminal narrowing. PARASPINOUS SOFT TISSUES: Normal. IMPRESSION: No acute osseous abnormality of the thoracic spine. 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 Reviewed, dictated and finalized at location A.
== END 2024-10-17 10:30 | disposition home or self-care (01) ==
LOC: MICIMG 10:30
PROVIDERS: PCP Family Medicine; Visit Provider Pain Medicine Pain Medicine
DX: M96.1 Postlaminectomy syndrome, not elsewhere classified (principal); M51.34 Other intervertebral disc degeneration, thoracic region
CPT/HCPCS: 72128